=== PATIENT | female | born 2000 | race Caucasian/White ===

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

== ENCOUNTER 2020-03-04 06:42 | Observation (INO) | payer SELFPAY ==
[2020-03-04] VITALS (13 sets, daily range): BP systolic 108–132; BP diastolic 67–95; PULSE 55–106; RESP 15–16; TEMP 35.9–36.8; O2SAT 96–100; BMI 17.9
--- NOTE | 2020-03-04 07:14 | CT_ITS ---
STUDY: CT ABDOMEN AND PELVIS WITH CONTRAST REASON FOR EXAM: Female, 19 years old. PT STATED RLQ PAIN X 1.5 DAYS RADIATION DOSAGE (If Supplied By Facility): CTDIvol = ( 7.63 ) mGy, DLP = ( 268.03 ) mGycm TECHNIQUE: Transaxial images were obtained from the dome of the diaphragm to the symphysis pubis without oral contrast. Oral and amp; IV Gastrografin and amp; 75mL Isovue-300 was administered. Sagittal and coronal images were reconstructed. Individualized dose optimization techniques were used for this CT. COMPARISON: None. FINDINGS: The visualized lung bases are unremarkable. The visualized portions of the heart are within normal limits. Normal liver. Partially contracted gallbladder with pericholecystic fluid. No significant dilatation of the extrahepatic biliary system. Normal spleen. Normal pancreas. Normal bilateral adrenal glands. Normal right kidney. Normal left kidney. Normal visualized stomach. Normal small intestine. Diffuse fecal retention in the colon. The appendix is fluid distended and borderline in size. Normal abdominal aorta. Normal inferior vena cava. Normal retroperitoneum. Normal urinary bladder. Mild pelvic free fluid. Normal abdominal wall. Mild vertebral scoliosis. CT/Abdomen/Pelvis WITH Contrast IMPRESSION: No pericholecystic fluid. Borderline size appendix. Mild pelvic free fluid. Diffuse colonic fecal retention. Electronically Signed: Miguel Monte DO at 9:10 EDT Tel [phone], Service support ,
[2020-03-04] MEDS: Morphine 4 MG/ML Syringe IV (07:37)
[2020-03-04] MEDS: 0.9% Normal Saline 1,000 ML 1000 ML IV (07:38)
[2020-03-04] MEDS: Ondansetron 4 MG/2 ML Vial IV (07:38)
[2020-03-04] MEDS: 0.9% Normal Saline 1,000 ML 60 ML IV (07:41)
--- NOTE | 2020-03-04 07:46 | ED.VISSUMM ---
- ER Visit Summary Date of Service: 03/04/20 Chief Complaint: Abdominal pain History of Present Illness: The patient is a 19 F with no primary care physician. She reports that she has abdominal pain that began yesterday and is gradually gotten worse. The pain began in the periumbilical region is now in the right lower quadrant. Scribes it is an aching pain is 10 of 10 at worst and 710 currently. Is worsened by movement or standing upright. Is relieved by nothing. She is been nausea and vomited once. No blood in her emesis. Her last bowel was 2 days ago. Typically she goes every other day. She denies any melena medic easy. She does complain of dysuria and frequency that began yesterday. Patient reports that she has irregular periods and her last menses was approximately 2 months ago. She denies any chance of being . She denies any vaginal bleeding or discharge. Physical Examination: Vitals: Stable. Afebrile. General: Well-nourished and well-developed. Head: Normocephalic atraumatic. Neck: Supple, no lymphadenopathy. No JVD. Nontender. Cardiovascular: Regular rate and rhythm. No murmurs. Respiratory: No respiratory distress. Clear to auscultation bilaterally. Abdominal: Soft, moderate tenderness palpation in the right lower quadrant, nondistended, normal bowel sounds. No guarding, rebound, or peritoneal signs. Back: Nontender. Extremities: Nontender, no edema. Skin: Normal color, no rash. Neurologic: Alert and oriented ?3. Cranial nerves II through XII are intact. Normal strength and sensation. Psych: Normal affect. Test Results: CBC shows 7 neutrophils 81 monocytes of 11. Chem-7 is normal. UA shows 5-10 white blood cells with no bacteria. test is negative. Clinical Impression(s) from Imaging Studies Abdomen/Pelvis CT 03/04/20 07:14 IMPRESSION: No pericholecystic fluid. Borderline size appendix. Mild pelvic free fluid. Diffuse colonic fecal retention. Electronically Signed: Miguel Monte DO at 9:10 EDT Tel [phone], Service support , Emergency Department Course and Treatment: Patient had an IV placed. She is given a liter of normal saline. She was given morphine and Zofran IV. She is resting more comfortably. Treatment Plan: Patient was seen in the emergency department by Dr. West. He is going to take her to the operating room. She was given a dose of Zosyn. Disposition: Admitted in stable condition. Impression: 1. Appendicitis. This note was generated with [employer] dictation software. It may contain incorrect words, spelling, and punctuation that were not noted in review of the chart prior to signing ED Disposition - Plan for ED Patient: Referrals: Care Physician,No Primary [Primary Care Provider] -
[2020-03-04 08:04] LABS: Bacteria 0 SEEN /hpf (None Seen); Mucous, Urine 0 SEEN /hpf (<or=2+); Red Blood Cells-Urine 0 SEEN /hpf (0-5)
[2020-03-04 08:05] LABS: Color, Urine Yellow (Yellow); Glucose, Dipstick Normal (Normal); Ketone-Dipstick 5 mg/dl (Negative); Leukocyte Esterase-Dipstick 25 /ul (Negative); Nitrite-Dipstick Negative (Negative); Occult Blood-Urine Negative /ul (Negative); Protein-Dipstick Negative (Negative); Specific Gravity, Urine 1.015 (1.002-1.030); Urine Bilirubin Dipstick Negative (Negative); Urine Clarity Cloudy (Clear); Urine Urobilinogen Normal (Normal)
[2020-03-04 08:14] LABS: Absolute Lymphocyte Count 1.21 X10^3/uL (0.83-4.51); Absolute Neutrophil Count 8.7 X10^3/uL (2.0-7.7); Basophil# 0.02 X10^3/uL; Basophil% 0.2 % (0-1); Eosinophil# 0.04 X10^3/uL; Eosinophils% 0.4 % (0-5); Hematocrit 38.5 % (37-47); Hemoglobin 12.7 g/dL (12.0-15.0); Lymphocyte # 1.21 X10^3/ul (4.0); Lymphocyte % 11.3 % (19-41); Mean Corpuscular Hgb 30.2 pg (27.0-32.0); Mean Corpuscular Volume 91.4 fL (81-99); Mean Platelet Vol. 10.1 fl (6.2-12.0); Monocyte% 6.6 % (0-10); NRBC Flagged by Analyzer 0 % (0-5); Neutrophil # 8.66 X10^3/uL (2.7-7.7); Neutrophil % 81.1 % (47-70); Platelet Count 235 K/mm3 (150-450); RBC Distribution Width CV 11.6 % (11.6-14.6); Red Blood Count 4.21 M/mm3 (4.2-5.4); White Blood Count 10.7 K/mm3 (4.4-11.0)
[2020-03-04 08:19] LABS: Anion Gap 6 (5-15); BUN 9 mg/dL (7-18); Calcium,Total 9.4 mg/dL (8.5-10.1); Chloride 105 mmol/L (98-107); Creatinine, Serum 0.56 mg/dL (0.55-1.02); EST Glomerular Filtration Rate 147 mL/min (>60); Est Glom Filt Rate - Afr Amer 178 mL/min (>60); Estimated Creatinine Clearance 116.83 ml/min; Glucose 94 mg/dL (74-106); Potassium 3.8 mmol/L (3.5-5.1); Sodium Level 140 mmol/L (136-145)
[2020-03-04 08:25] LABS: Internal QC Validated? YES +Cl - CLEAR BKGD; Pregnancy, Serum, hCG Quali. NEGATIVE Negative
[2020-03-04 08:40] LABS: Amorphous Sediment 3+; Squamous Epithelial Cells - UA 0-5 SEEN /hpf (5-10); White Blood Cells 5-10 SEEN /hpf (0-5)
--- NOTE | 2020-03-04 11:05 | PCM.HP.STD ---
Problem List (1) Acute appendicitis Status: Acute Qualifiers: Acute appendicitis type: unspecified acute appendicitis type Qualified Code(s): K35.80 - Unspecified acute appendicitis History of Present Illness Date of Admission: 03/04/20 The patient is a 19 year old F who presents with abdominal pain of 1 day duration. She reports yesterday she woke up with pain that started in the periumbilical region and migrated to the right lower quadrant. She says standing causes severe pain in that area and she feels like something is pulling. She is having nausea and vomiting. No fevers or chills. 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 - *Family History Maternal History Items: No pertinent history Review of Systems Constitutional: Denies: Anorexia, Fever HEENT: Denies: Difficulty Swallowing Respiratory: Denies: Cough, Shortness of Breath Gastrointestinal: Reports: Abdominal Pain, Nausea, Vomiting Genitourinary: Denies: Dysuria Musculoskeletal: Denies: Joint Tenderness Skin: Denies: Dryness Hematologic/ Lymphatic: Denies: Anemia VTE Information - Inpt Only VTE Present on Admission: No VTE Mechan Device Prophylaxis: SCD's Patient Problems: Active and Suspected Problems Acute appendicitis (Acute) - Physical Exam Vitals/I&O's: Vital Signs Temp Pulse Resp BP Pulse Ox 98.1 F 79 15 124/78 H 98 03/04/20 11:02 03/04/20 11:02 03/04/20 11:02 03/04/20 11:02 03/04/20 11:02 Oxygen Delivery Method Room Air Weight: 100 lb 15.547 oz Body Mass Index (BMI) 17.9 General: Alert, Oriented x3 Neck: Negative Carotid Bruits Lungs: Normal air movement Cardiovascular: Regular rate, Regular Rhythm, No murmurs Abdomen: Soft, Non-Distended, Tender - Tender right lower quadrant with positive Rovsing sign Musculoskeletal: No Muscle Wasting Neurological: Cranial nerves II-XII grossly intact Psych/Mental Status: Normal Affect Laboratory Results 03/04/20 07:40: Urine Opiates Screen Pending, Urine Methadone Screen Pending, Ur Barbiturates Screen Pending, Ur Phencyclidine Scrn Pending, Ur Amphetamines Screen Pending, U Methamphetamin-MDMA Pending, U Benzodiazepines Scrn Pending, Urine Cocaine Screen Pending, U Cannabinoids Screen Pending, Ur Drug Screen Comment 03/04/20 07:50: WBC 10.7, RBC 4.21, Hgb 12.7, Hct 38.5, MCV 91.4, MCH 30.2, MCHC 33.0, RDW Std Deviation 39.0, RDW Coeff of Mikki 11.6, Plt Count 235, MPV 10.1, Immature Gran % (Auto) 0.400, Neut % (Auto) 81.1 H, Lymph % (Auto) 11.3 L, Cedar % (Auto) 6.6, Eos % (Auto) 0.4, Baso % (Auto) 0.2, Absolute Neuts (auto) 8.7 H, Absolute Lymphs (auto) 1.21, Nucleated RBC % 0 03/04/20 07:50: Sodium 140, Potassium 3.8, Chloride 105, Carbon Dioxide 29.0, Anion Gap 6, BUN 9, Creatinine 0.56, Estim Creat Clear Calc 116.83, Est GFR (MDRD) Af Amer 178, Est GFR (MDRD) Non-Af 147, BUN/Creatinine Ratio 16.0, Glucose 94, Calcium 9.4 03/04/20 07:50: Serum , Qual NEGATIVE 03/04/20 07:50: Urine Color Yellow, Urine Clarity Cloudy, Urine pH 8.0, Ur Specific [place] 1.015, Urine Protein Negative, Urine Glucose (UA) Normal, Urine Ketones 5 H, Urine Occult Blood Negative, Urine Nitrite Negative, Urine Bilirubin Negative, Urine Urobilinogen Normal, Ur Leukocyte Esterase 25 H, Urine RBC 0 SEEN, Urine WBC 5-10 SEEN, Ur Squamous Epith Cells 0-5 SEEN, Amorphous Sediment 3+, Urine Bacteria 0 SEEN, Urine Mucus 0 SEEN 03/04/20 09:40: COVID-19 (YG) Pending Clinical Impression(s) from Imaging Studies Abdomen/Pelvis CT 03/04/20 07:14 IMPRESSION: No pericholecystic fluid. Borderline size appendix. Mild pelvic free fluid. Diffuse colonic fecal retention. Electronically Signed: Miguel Monte DO at 9:10 EDT Tel [phone], Service support , Current Medications Piperacillin Sod/Tazobactam (Sod 3.375 gm/ Sodium Chloride) 50 mls @ 100 mls/hr IV X1 ONE Stop: 03/04/20 11:10 Assessment/Plan All Active Problems Acute appendicitis (Acute) 19-year-old female with acute appendicitis 1. The patient likely has acute appendicitis. She had migration of pain as well as nausea and vomiting. Her white count is the very highest point of normal and she does have a left shift. CT scan shows a fluid-filled appendix but she is very skinny as there is no periappendiceal stranding. She is also very constipated. Given the patient's nausea and vomiting and migration of pain I do not believe the pain is being caused by her constipation. I recommended exploration with laparoscopic appendectomy. I discussed laparoscopic appendectomy with the patient in detail. I discussed the risks including but not limited to bleeding, infection, injury to other organs, injury to ureter or bladder. The patient understands the risks and she is willing to proceed. Jm West MD Pager: [facility] [address] [place] [address], [address] [place] [address] Office:
--- NOTE | 2020-03-04 11:10 | APP_PTH ---
PATIENT: ANA SHAH LOC: MS3 U#:[id number] AGE/SX: 19/F ROOM: MS311 RE03/04/[address]: Dr. Jm West MD : 2000 BED: 1 DIS: 03/04/2020 SPEC #: [id number] RECD: 03/06/20 07:44 STATUS: YG KRISTA #: [id number] SEVEN: 03/04/20 11:[address]: Jm West DEPT: SURGICAL PATHOLOGY RECD BY: Mona Richards ENTERED: 03/06/20 09:09 SP TYPE: APPENDIX OT DR: No Primary Care Phys Tissues: Appendix, NOS Procedures: Surgery Specimen Level III HEADER OPERATION: Laparoscopic appendectomy PRE-OP DIAGNOSIS: Acute appendicitis TISSUE SUBMITTED: Appendix MICROSCOPIC DIAGNOSIS Appendix, appendectomy: Acute appendicitis and periappendicitis. MARGO:eugene 03/07/20 MICROSCOPIC DESCRIPTION Slides are reviewed. GROSS DESCRIPTION Received in fixative is one container labeled with the patient's name and designated appendix. The specimen consists of an appendix measuring 4.5 cm in length and up to 1 cm in diameter. No gross perforations are evident. Sections reveal a patent lumen with fecal material. No mass lesion is identified. Satellite Installation Technician sections are submitted in one cassette. / AM:eugene 03/06/20 TC:2 [facility]: [id number]
[2020-03-04 11:24] LABS: Amphetamine Urine VISTA POSITIVE (<1000 ng/mL); Barbiturate Urine VISTA NEGATIVE (< 200 ng/mL); Benzodiazepine Urine VISTA NEGATIVE (< 200 ng/mL); Cocaine Urine VISTA NEGATIVE (< 300 ng/mL); Ecstacy Urine VISTA NEGATIVE (< 500 ng/mL); Methadone Urine VISTA NEGATIVE (< 300 ng/mL); PCP Urine VISTA NEGATIVE (< 25 ng/mL); THC Urine VISTA POSITIVE (< 50 ng/mL); Vista UDS pH Range 7
[2020-03-04] MEDS: Bupiv/Epi 0.25% 30 ML Vial (11:53)
--- NOTE | 2020-03-04 12:21 | PCM.OPRPT ---
Problem List (1) Acute appendicitis Status: Acute Qualifiers: Acute appendicitis type: unspecified acute appendicitis type Qualified Code(s): K35.80 - Unspecified acute appendicitis Report of Operation Date of Procedure: 03/04/20 Pre-Operative Diagnosis: Acute appendicitis Post-Operative Diagnosis: Same Surgery/Procedure Performed:: Laparoscopic appendectomy Specimen's removed: Appendix Description of Procedure: The patient was brought into the operating room and general anesthesia was induced. The left arm was tucked and the abdomen was prepped and draped in usual sterile fashion. A small midline incision was made superior to the umbilicus and deepened to the level of the fascia. The fascia was elevated and incised. The peritoneum was also elevated and incised. A finger sweep was performed and a balloon trocar was placed into the abdomen and inflated. The abdomen was insufflated to 15 mmHg and the camera was inserted and the abdomen was inspected for any injuries upon entering the abdomen. There were none. The patient was placed in Trendelenburg position and a 5 mm ports placed in the left lower quadrant and suprapubic areas under direct visualization. Next using atraumatic bowel graspers the appendix was identified. The appendix was grasped and elevated and Enseal was used to take down the mesoappendix. The appendix was inflamed. A stapler was used to come across the base of the appendix. The appendix was then placed in Endo Catch bag and removed through the umbilical incision. The staple line was inspected and found to be hemostatic and intact. The 2 5 mm ports are removed under direct visualization. The balloon trocar was deflated and removed and all the air was removed from the abdomen. The umbilical incision fascia was closed with an 0 Vicryl [id number] suture. The incisions were then irrigated with saline and dried. Local anesthetic was injected into the incision sites. The skin incisions were then closed with interrupted 4-0 Monocryl suture and Steri-Strips. Bandages were applied and the patient was awoken and taken to PACU in stable condition. Patient tolerated the procedure well. - Admit VTE Documentation VTE Mechan Device Prophylaxis: SCD's
--- NOTE | 2020-03-04 12:22 | DCINST_ITS ---
Discharge Diet: Light diet - advance as tolerated Discharge Activity: May Not Drive - for 3-5 days or while taking narcotic pain meds. May shower in (days): 1 Lifting Restrictions: 20 lbs for 2 weeks Call your doctor if your incision/area has: Continuous Slow Oozing, Sudden Increased Bleeding, Increased Pain/ Swelling, Increased Redness, Foul Smelling Discharge Call your doctor if you observe: Fever of 101 or Higher Suture Line Care: Avoid Pulling/Pushing, Avoid Pinching/Bending Additional Dressing/Incision Instructions:: Keep dressing clean and dry. Change or remove dressing in 2 days. Leave steri strips for 1 week. May protect with a gauze bandaid. Medications to take at Discharge NK 03/04/20 Allergies/Adverse Reactions: Allergies No Known Allergies Allergy (Verified 03/04/20 06:45) Test Results: Test results from this visit will be discussed in further detail at your follow- up appointment, if applicable. Please Follow Up With: Jm West MD When: Please call to schedule 2 week follow up appointment. [phone]
[2020-03-04 12:38] LABS: Probe Check PASS; Specimen Processing Control PASS
[2020-03-04] MEDS: Acetaminophen 325 MG Tablet 650 MG PO ×2 (15:40→21:35)
[2020-03-04] MEDS: Docusate Sodium 100 MG Capsule PO ×2 (15:41→20:16)
[2020-03-04] MEDS: oxyCODONE 5 MG Tablet PO (15:41)
[2020-03-04] MEDS: Magnesium Citrate 300 ML PO (15:55)
--- NOTE | 2020-03-04 20:04 | NURSING ---
Called and left message with boyfriend Dawit to let him know that patient would be ready to be discharged and if he could call us back so that we knew when he was going to be coming to pick her up.
[2020-03-04] MEDS: 0.9% Saline Lock 10 ML Syringe IV (21:23)
== END 2020-03-04 21:45 | disposition home or self-care (01) ==
LOC: ED 07:41 → SDC 11:00 → MS3 13:35
PROVIDERS: Anesthesiology; Admitting Provider Surgery; Emergency Provider Emergency Medicine; Visit Provider Surgery
PROC: 0DTJ4ZZ Resection of Appendix, Percutaneous Endoscopic Approach (ICD-10-PCS; CPT 44970; principal; 2020-03-04 11:10)
DX: K35.80 Unspecified acute appendicitis (principal); Z87.891 Personal history of nicotine dependence; J45.909 Unspecified asthma, uncomplicated
CPT/HCPCS: 00840; 44970; 74177; 80048; 80307; 81001; 84703; 85025; 87635; 88304; 96361; 96374; 96375; 99284; 99406; G2023; J7030; Q9967; A4216; C1760; J2405; U0003

== ENCOUNTER 2022-12-27 03:00 | Emergency (ER) | payer OTHER, SELFPAY ==
[2022-12-27 03:02] VITALS: BP 126/82; PULSE 70; RESP 16; TEMP 37.1; O2SAT 98; BMI 19.2
[2022-12-27] MEDS: Ketorolac 30 MG/ML Syringe IM (03:24)
--- NOTE | 2022-12-27 03:53 | EX.ED.DYSGE1 ---
HPI History of Present Illness Chief Complaint: Burn Narrative Narrative: Patient is a 22-year-old female with no significant past medical history. She was at work this evening finishing up her shift when she was splashed by 350 degree hot grease. She states that the grease struck her in the right and left forearm/hand and along the anterior portion of her neck. She states that the injury occurred roughly 10 minutes prior to arrival. She denies any other trauma but with concern that she would need treated secondary to the thermal burn she presents for evaluation [facility] Medical History no medical history Home Medications hydrocodone-acetaminophen 5-325mg 5mg-325mg 1 tab PO Q6H PRN PRN Pain 3 days #12 TABLETS 12/27/22 [Rx Last Taken Unknown] lidocaine-aloe vera 0.5 % topical gel 1 applic topical TID PRN Pain/burn #227 grams 12/27/22 [Rx Last Taken Unknown] silver sulfadiazine 1 % topical cream (Silvadene) 1 applic topical DAILY 7 days #50 grams 12/27/22 [Rx Last Taken Unknown] Allergy/AdvReac Type Severity Reaction Status Date / Time No Known Allergies Allergy Verified 12/27/22 03:01 Surgical History (Updated 12/27/22 @ 03:02 by Florentino Crespo) History of appendectomy Social History Smoking Status: Current some day smoker tobacco type: cigarettes ROS ROS ED Constitutional Constitutional ED: Denies chills or fever(s) Eyes Eyes: Denies change in vision ENT ENT ED: Denies sore throat Cardiovascular Cardiovascular: Denies chest pain Respiratory/Chest Respiratory/Chest: Denies cough or dyspnea Gastrointestinal Gastrointestinal: Denies abdominal pain, diarrhea, nausea or vomiting Genitourinary Genitourinary ED: Denies dysuria Musculoskeletal Musculoskeletal: Reports other Details: Positive bilateral arm pain Integumentary Reports other Details: Positive burn Neurologic Neurologic: Denies headache(s) or paresthesias Hematologic/Lymphatic Hematologic/Lymphatic: Denies easy bleeding or easy bruising EXAM Physical Exam Const Vital Signs: 12/27/22 03:02 12/27/22 03:09 Temperature 98.7 F Temperature Source Temporal Pulse Rate 70 Respiratory Rate 16 Respiratory Effort Normal Respiratory Depth Normal Respiratory Pattern Normal Blood Pressure 126/82 H Blood Pressure Mean 96 Pulse Ox 98 Oxygen Delivery Method Room Air Positive well nourished and well developed General Appearance ED: well developed Eyes PERRL and EOMs intact bilaterally Neck supple Neck Narrative: Patient has 4 areas of erythema along the anterior aspect of the neck below the chin that are roughly 1 cm in diameter each without blister formation indicating first-degree thermal burn. Resp normal respiratory effort and clear to auscultation bilaterally Cardio regular rate and regular rhythm Extremity Extremity Narrative: Bilateral upper extremities are neurovascular intact. Patient has a combination of first and second-degree thermal burn along the ulnar aspect of the distal and middle third of the forearm. Patient also has a combination of first and second-degree burn along the ulnar aspect of the left hand near the hyperthenar eminence extending into the distal third of the forearm. There is no active drainage from the wound sites no secondary changes to suggest infection. The total amount of surface area burned between the first and second-degree solis is 5% Neuro oriented x3, CN's II-XII intact bilaterally and no sensory deficits noted Sensorium / Orientation: alert Psych mental status grossly normal Skin Skin Narrative: Combination of first and secondary solis to the bilateral arms and neck as documented above without secondary changes to suggest infection MDM MDM MDM Narrative Medical decision making narrative: Patient presented to the ER with stable vitals and a history and exam consistent with thermal burn. At this time she does not have secondary changes to suggest infection the solis are not circumferential which could lead to strictures and contractions and she is neurovascularly intact. Also the total percentage of burn area does not necessitate transfer to a burn center. Therefore patient was instructed on symptomatic care and is otherwise safe for discharge. History & Record Review Discussion w/independent historian: Patient Discharge Plan Triage Chief Complaint: Burn ED Provider: Jaylan Bernabe Dx/Rx/DC Orders Clinical Impression: Second degree burn, First degree burn Instructions: ED First- and Second-Degree Solis ..., ED BURN Wound Check [No Infection], ED Burn, Second-Degree Prescriptions: New silver sulfadiazine [Silvadene] 1 % cream 1 applic topical DAILY 7 Days Qty: 50 0RF Rx Instructions: apply a 1.5 mm thickness lidocaine-aloe vera 0.5 % gel 1 applic topical TID PRN (Reason: Pain/burn) Qty: 227 0RF hydrocodone-acetaminophen 5-325 mg tablet 1 tab PO Q6H PRN PRN (Reason: Pain) 3 Days Qty: 12 0RF Primary Care Provider: Ge Romo Referrals: Ge Romo MD [Primary Care Provider] - Activity Restrictions/Additional Instructions: Use the Silvadene cream to prevent infection and then cover the. area also with the lidocaine and aloe vera to help reduce pain if there is persistent pain take the [place]. Follow-up with Workmen's Comp. for repeat evaluation and return to ER should you have any further concerns Disposition Disposition: Home, Self Care Discharge Date/Time: 12/27/22 04:11
== END 2022-12-27 04:11 | disposition home or self-care (01) ==
PROVIDERS: Emergency Provider Emergency Medicine; PCP Pediatrics; Visit Provider Emergency Medicine
DX: T22.212A Burn of second degree of left forearm, initial encounter (principal); T20.17XA Burn of first degree of neck, initial encounter; T31.0 Burns involving less than 10% of body surface; X10.2XXA Contact with fats and cooking oils, initial encounter; Y99.0 Civilian activity done for income or pay; F17.210 Nicotine dependence, cigarettes, uncomplicated
CPT/HCPCS: 96372; 99282

== ENCOUNTER 2024-01-09 13:16 | Emergency (ER) | payer SELFPAY ==
[2024-01-09 13:17] VITALS: BP 124/81; PULSE 62; RESP 16; TEMP 36.6; O2SAT 100; BMI 18.3
[2024-01-09 13:19] VITALS: BP 111/64; PULSE 60; RESP 16; TEMP 36.6
--- NOTE | 2024-01-09 14:15 | EX.ED.DYSGE1 ---
HPI <ISRAEL Rodríguez - Last Filed: 01/09/24 14:22> History of Present Illness Chief Complaint: Ear Problem Narrative Narrative: Patient is a 23-year-old female with no significant medical history presents to the emergency department for concern of infection to the right earlobe. Patient states at the end of November, she had both of her ears pierced. Patient does have 2 piercings to the right lower lobe. Patient noticed some redness over the last 3 to 4 days, is getting more painful and swollen she is here for evaluation. She denies any drainage, nausea or vomiting. PFSH <ISRAEL Rodrígeuz - Last Filed: 01/09/24 14:22> [facility] Medications ?Medication ?Instructions ?Recorded ?Last Taken ?Type hydrocodone-acetaminophen 5-325mg 1 tab PO Q6H PRN PRN Pain 3 days 12/27/22 Unknown Rx 5mg-325mg #12 TABLETS lidocaine-aloe vera 0.5 % topical 1 applic topical TID PRN Pain/burn 12/27/22 Unknown Rx gel #227 grams silver sulfadiazine 1 % topical 1 applic topical DAILY 7 days #50 12/27/22 Unknown Rx cream (Silvadene) grams cephalexin 500 mg capsule 500 mg PO Q6 7 days #28 CAPSULES 01/09/24 Unknown Rx Allergy/AdvReac Type Severity Reaction Status Date / Time No Known Allergies Allergy Verified 01/09/24 13:17 Surgical History (Updated 12/27/22 @ 03:02 by Florentino Crespo) History of appendectomy Social History Smoking Status: Current some day smoker tobacco type: cigarettes ROS <ISRAEL Rodríguez - Last Filed: 01/09/24 14:22> ROS ED ROS Narrative Constitutional: Negative for fever, chills, weight loss, weakness Eyes: Negative for vision loss, vision change, double vision ENT: Negative for any sore throat, congestion. Positive for right ear pain, right ear redness Cardiovascular: Negative for any chest pain, tightness, palpitations Respiratory: Negative for any cough, sputum production, hemoptysis, dyspnea, dyspnea on exertion, orthopnea Gastrointestinal: Negative for any abdominal pain, nausea, vomiting, diarrhea, constipation, blood in stool, blood in vomit : Negative for any urinary frequency, dysuria, retention, blood in urine Muscle skeletal: Negative for any neck pain, back pain Neurological: Negative for any headache, syncope, dizziness Skin: Negative for any rashes, itching, abrasions, lacerations Psychiatric: Negative for any depression, anxiety, stress, suicidal ideation, homicidal ideation Hematologic: Negative for any excessive bruising, easy bleeding EXAM <ISRAEL Rodríguez - Last Filed: 01/09/24 14:22> Physical Exam Narrative Exam Narrative: Vital signs reviewed. HEET: Head normocephalic atraumatic, TMs clear bilaterally. Posterior pharynx is clear, moist mucous membranes. Nares clear bilaterally. Patient's right lower earlobe does show some erythema, edema. I did have the patient take out both of her earrings in that ear, there was some serosanguineous drainage from one of the holes. There is no abscess formation. Patient does have some discomfort on palpation. Neck: Supple with no lymphadenopathy or tenderness. No signs of meningismus. Cardiac: Regular rate and rhythm no murmurs gallops or rubs, equal peripheral pulses bilaterally. Respiratory: Lungs clear to auscultation bilaterally. No chest tenderness. Abdomen: Soft, nontender, nondistended. No abdominal bruit or pulsatile masses. No hepatosplenomegaly Extremities: No peripheral edema, no signs of gross trauma or deformity. Active full range of motion of all extremities. Neuro: Cranial nerves II through XII intact, no focal neurological deficits. Skin: Clean dry and intact with no rash, purpura, petechiae, vesicles or pustules. Backs/flank: No CVA tenderness, no midline spinal tenderness, no deformity. Psych: Normal mood and affect. No SI, HI or acute psychosis. Const Vital Signs: 01/09/24 13:17 01/09/24 13:17 01/09/24 13:19 Temperature 97.9 F 97.9 F 97.9 F Temperature Source Temporal Temporal Temporal Pulse Rate 62 62 60 Respiratory Rate 16 16 16 Blood Pressure 124/81 H 124/81 H 111/64 Blood Pressure Mean 95 95 79 Pulse Ox 100 100 Oxygen Delivery Method Room Air Room Air Room Air <Dr. Pavel Marte, DO - Last Filed: 01/09/24 14:33> Physical Exam Const Vital Signs: 01/09/24 13:17 01/09/24 13:17 01/09/24 13:19 Temperature 97.9 F 97.9 F 97.9 F Temperature Source Temporal Temporal Temporal Pulse Rate 62 62 60 Respiratory Rate 16 16 16 Blood Pressure 124/81 H 124/81 H 111/64 Blood Pressure Mean 95 95 79 Pulse Ox 100 100 Oxygen Delivery Method Room Air Room Air Room Air MDM <ISRAEL Rodríguez - Last Filed: 01/09/24 14:22> MDM Treatment and Re-Evaluation :: Differential diagnosis includes however is not limited to: Fungal disease, foreign body, cellulitis, abscess formation Patient appears generally well, patient appears nontoxic, vital signs are stable. Patient presents to the emergency department with complaints of right earlobe redness, swelling. Physical examination consistent with cellulitis to the right earlobe secondary to ear piercing. She was able to get both of these piercings out of her right ear. She will keep these out until fully healed. Patient placed on Keflex 4 times a day for 7 days. She instructed use warm compresses. Ibuprofen Tylenol for pain or fever. She is happy with the plan of care, given strict return precaution. Stable for discharge. <Dr. Pavel Marte DO - Last Filed: 01/09/24 14:33> MDM Treatment and Re-Evaluation :: Differential diagnosis includes however is not limited to: Fungal disease, foreign body, cellulitis, abscess formation Patient appears generally well, patient appears nontoxic, vital signs are stable. Patient presents to the emergency department with complaints of right earlobe redness, swelling. Physical examination consistent with cellulitis to the right earlobe secondary to ear piercing. She was able to get both of these piercings out of her right ear. She will keep these out until fully healed. Patient placed on Keflex 4 times a day for 7 days. She instructed use warm compresses. Ibuprofen Tylenol for pain or fever. She is happy with the plan of care, given strict return precaution. Stable for discharge. I have personally performed a face to face assessment of the patient and have reviewed the KATE Note. I performed a substantive portion of the visit including all aspects of the following. My hewitt findings include: History is 23-year-old female presenting with an infected ear piercing. She has never had her ears pierced before. Left ear is fine. She has some tenderness and redness of the left earlobe. Exam is nontoxic well-appearing female sitting comfortably in the bed. The earring has been removed. There is no purulence or crusting of the ear. The earlobe itself is mildly erythematous and tender. Medical Decison Making patient will be started on Keflex. She is to follow-up with primary care as needed return if worsening or concerns. Home care was discussed with patient including washing and cleaning of the area Discharge Plan Triage Chief Complaint: Ear Problem Other Complaint: Fever ED Midlevel Provider: Singh Bonner ED Provider: Pavel Marte Dx/Rx/DC Orders Clinical Impression: Cellulitis of ear Instructions: Cellulitis Dc, ED Cellulitis Prescriptions: New cephalexin 500 mg capsule 500 mg PO Q6 7 Days Qty: 28 0RF No Action silver sulfadiazine [Silvadene] 1 % cream 1 applic topical DAILY 7 Days Qty: 50 0RF Rx Instructions: apply a 1.5 mm thickness lidocaine-aloe vera 0.5 % gel 1 applic topical TID PRN (Reason: Pain/burn) Qty: 227 0RF hydrocodone-acetaminophen 5-325 mg tablet 1 tab PO Q6H PRN PRN (Reason: Pain) 3 Days Qty: 12 0RF Primary Care Provider: Ge Romo Referrals: Ge Romo MD [Primary Care Provider] - Activity Restrictions/Additional Instructions: Take the antibiotics until finished. Use warm compresses. Print Language: Armenian Disposition Disposition: Home, Self Care
[2024-01-09 14:19] VITALS: BP 114/50; PULSE 60; RESP 18; TEMP 530.9; TEMP 987.7
[2024-01-09] MEDS: Cephalexin 250 MG Capsule 500 MG PO (14:39)
[2024-01-09 14:41] VITALS: BP 114/50; PULSE 60; RESP 18; TEMP 36.5; O2SAT 99
== END 2024-01-09 14:42 | disposition home or self-care (01) ==
PROVIDERS: Emergency Provider Emergency Medicine; PCP Pediatrics; Visit Provider Emergency Medicine
DX: H60.11 Cellulitis of right external ear (principal); F17.210 Nicotine dependence, cigarettes, uncomplicated
CPT/HCPCS: 99283

== ENCOUNTER 2024-03-31 12:06 | Inpatient (IN) | payer SELFPAY ==
[2024-03-31 12:06] VITALS: BP 124/78; PULSE 68; RESP 19; TEMP 35.8; O2SAT 100; BMI 16.5
--- NOTE | 2024-03-31 13:14 | EDS_ITS ---
HPI History of Present Illness Chief Complaint: Substance Abuse Informant: patient Onset/Context/Timing Onset: Month(s) Context: Gradual Onset Timing: Continuous Current Severity: Mild Maximum Severity: Mild Narrative Narrative: 23-year-old female states she is requesting detox for fentanyl abuse. States she snorts it. Denies any IV drug use. Denies any recent illness. States she is never gone through detox before. Last use was about 5 to 6 hours ago. Prior similar symptoms: Yes Recent Illness/Hospitalization: No PFSH PFSH Allergy/AdvReac Type Severity Reaction Status Date / Time No Known Allergies Allergy Verified 01/09/24 13:17 Surgical History History of appendectomy Social History Smoking Status: Former smoker ROS ROS ED ROS Narrative Denies recent illness. Constitutional Constitutional ED: Denies fever(s) Eyes Eyes: Denies blurry vision ENT ENT ED: Denies ear pain Cardiovascular Cardiovascular: Denies chest pain Respiratory/Chest Respiratory/Chest: Denies cough or dyspnea Gastrointestinal Gastrointestinal: Denies abdominal pain Genitourinary Genitourinary ED: Denies dysuria Musculoskeletal Musculoskeletal: Denies arthralgias Integumentary Denies abscess Neurologic Neurologic: Denies headache(s) Psychiatric Psychiatric: Denies anxiety or depression Endocrine Endocrinology: Denies cold intolerance Hematologic/Lymphatic Hematologic/Lymphatic: Denies easy bleeding Allergic/Immunologic Allergic/Immunologic ED: Denies mouth swelling EXAM Physical Exam Narrative Exam Narrative: There are few in no acute distress signs stable afebrile. H EENT exam unremarkable. Mytrex murmurs. Neck nontender. She does have anterior posterior cervical lymphadenopathy. States recently was diagnosed with mono several weeks ago. Lungs clear to auscultation bilaterally. Heart regular rhythm no murmur. Abdomen soft, nontender, nondistended normal bowel sounds no peritoneal signs. Moving all 4 extremities. Nontender no edema. Neurologically she is awake alert no focal motor deficits. Const Vital Signs: 03/31/24 12:06 Temperature 96.5 F L Temperature Source Temporal Pulse Rate 68 Respiratory Rate 19 H Blood Pressure 124/78 H Blood Pressure Mean 93 Pulse Ox 100 Oxygen Delivery Method Room Air Positive well nourished and well developed; Negative for obese, cachectic, contractures or unkempt General Appearance ED: well developed and NAD; Negative for unkempt, cachectic, contractures or pallor Nutritional Appearance: Negative for cachectic or obese HEENT Reports moist mucous membranes atraumatic; Negative for trauma or tenderness Eyes PERRL and EOMs intact bilaterally Neck No no lymphadenopathy, supple and no JVD Neck Narrative: Anterior and posterior cervical lymphadenopathy. Recent history of mono. Lymph Lymphatic: lymphadenopathy; Negative for no lymphadenopathy noted Chest Wall inspection of chest normal and palpation of chest normal Resp normal respiratory effort and clear to auscultation bilaterally Auscultation: Negative for rales, rhonchi or wheezes Cardio regular rate, regular rhythm, S1 normal heart sound, S2 normal heart sound and no murmurs Rate: Negative for bradycardia or tachycardic Rhythm: Negative for abnormal rhythm Bruits: Negative for other GI soft to palpation, non-tender, non-distended and no masses Inspection: Negative for abdominal distention Palpation: Negative for tender, guarding or mass Back/Spine no CVA tenderness Extremity General Extremety ED: Negative for edema or tenderness General Extremity: Negative for edema Neuro oriented x3 and CN's II-XII intact bilaterally Sensorium / Orientation: alert, oriented to person, oriented to place and oriented to time; Negative for confused, lethargic or stuporous Speech: speech normal Motor Exam: strength 5/5 throughout Psych mental status grossly normal and thought process normal Appearance: Negative for unkempt Attitude: No belligerent, No agitated, No aggressive and No hostile Mood & Affect: Negative for depressed, anxious or tearful Skin General Skin Exam: Negative for jaundice or pallor Lesions: no lesions Rashes: no rashes MDM MDM MDM Narrative Medical decision making narrative: 23-year-old female requesting detox for fentanyl abuse by snorting it. Screening labs being obtained. Hospitalist on page for admission. Hospitalist in the ER admitting the patient. She will be given a milligram of p.o. Ativan for anxiety. Lab Data Attestation: I reviewed the patient's lab results. Lab results narrative: CBC normal. White count 9. H&H 12 and 38. Platelets 236. Electrolytes sodium 135. Potassium 3.2. Gap 8. Normal BUN 10 creatinine 0.5. Liver enzymes unremarkable. Urine positive for cannabis. Serum alcohol negative. Labs: Laboratory Results - last 24 hr 03/31/24 13:21 WBC 9.4 RBC 4.29 Hgb 12.7 Hct 38.0 MCV 88.6 MCH 29.6 MCHC 33.4 RDW Std Deviation 38.0 RDW Coeff of Mikki 11.9 Plt Count 236 MPV 9.6 Immature Gran % (Auto) 0.300 Neut % (Auto) 46.1 L Lymph % (Auto) 44.6 H [place] % (Auto) 8.4 Eos % (Auto) 0.0 Baso % (Auto) 0.6 Absolute Neuts (auto) 4.3 Absolute Lymphs (auto) 4.19 Nucleated RBC % 0 Sodium 135 L Potassium 3.2 L Chloride 102 Carbon Dioxide 25.0 Anion Gap 8 BUN 10 Creatinine 0.54 L Estim Creat Clear Calc 111.96 Est GFR (MDRD) Af Amer 179 Est GFR (MDRD) Non-Af 148 BUN/Creatinine Ratio 18.6 Glucose 102 Calcium 8.8 Total Bilirubin 0.70 AST 34 ALT 50 Alkaline Phosphatase 186 H Total Protein 7.9 Albumin 3.4 Globulin 4.5 H Albumin/Globulin Ratio 0.8 L Serum , Qual NEGATIVE Urine Opiates Screen NEGATIVE Urine Methadone Screen NEGATIVE Ur Barbiturates Screen NEGATIVE Ur Phencyclidine Scrn NEGATIVE Ur Amphetamines Screen NEGATIVE MDMA (Ecstasy) Screen NEGATIVE U Benzodiazepines Scrn NEGATIVE Urine Cocaine Screen NEGATIVE U Cannabinoids Screen POSITIVE H Ur Drug Screen Comment Ethyl Alcohol < 3.0 Discharge Plan Dx/Rx/DC Orders Clinical Impression: Drug abuse, Mild fentanyl abuse, Desire for detoxification Disposition Disposition: Acute Care Hospital [facility]
--- NOTE | 2024-03-31 13:25 | NURSING ---
MED SURG TERELETSARLIN FENTANYL ABUSE, DETOX
[2024-03-31 13:31] LABS: Absolute Lymphocyte Count 4.19 X10^3/uL (0.83-4.51); Absolute Neutrophil Count 4.3 X10^3/uL (2.0-7.7); Basophil# 0.06 X10^3/uL; Basophil% 0.6 % (0-1); Hemoglobin 12.7 g/dL (12.0-15.0); Lymphocyte # 4.19 X10^3/ul (0.83-4.51); Lymphocyte % 44.6 % (19-41); Mean Corp Hgb Conc 33.4 g/dL (32-36); Mean Corpuscular Hgb 29.6 pg (27.0-32.0); Mean Corpuscular Volume 88.6 fL (81-99); Mean Platelet Vol. 9.6 fl (6.2-12.0); Monocyte# 0.79 X10^3/uL; Monocyte% 8.4 % (0-10); NRBC Flagged by Analyzer 0 % (0-5); Neutrophil # 4.32 X10^3/uL (2.7-7.7); Neutrophil % 46.1 % (47-70); POSITIVE MORPHOLOGY YES; Platelet Count 236 K/mm3 (150-450); RBC Distribution Width CV 11.9 % (11.6-14.6); Red Blood Count 4.29 M/mm3 (4.2-5.4); White Blood Count 9.4 K/mm3 (4.4-11.0)
[2024-03-31 13:34] LABS: Differential Indicated SCAN CRITERIA MET
--- NOTE | 2024-03-31 13:34 | HP.PCM.HOS_ITS ---
HPI - General General Date of Admission: 03/31/24 Date of Service: 03/31/24 Chief Complaint: Requesting services for opioid detox HPI Miguel SHAH, is a 23 F who presents to the emergency room at [facility] with request of services for detox from fentanyl. Patient snorts fentanyl, she has never been through detox program before. Patient does not abuse any other drugs, she has no chronic medical problems. Patient states she last used fentanyl today approximately 5 hours ago, she is having some muscle cramps and nausea at this time and feels nervous. Labs obtained in the ER included CBC which was unremarkable, at the time of this dictation, chemistry profile was pending, toxicology was also pending. Patient will be admitted to [place] [id number], orders were entered using the opiate detox order set, she will be seen by addiction marriage and family social worker. [facility], [facility] Allergy/AdvReac Type Severity Reaction Status Date / Time No Known Allergies Allergy Verified 01/09/24 13:17 Surgical History History of appendectomy Social History Smoking Status: Former smoker ROS Constitutional Constitutional: Denies anorexia, change in weight, chills, fatigue, fever(s), night sweats or weakness Eyes Eyes: Denies blurry vision, change in vision, discharge from eye(s) or eye pain Cardiovascular Cardiovascular: Denies chest pain, claudication, edema or palpitations Respiratory/Chest Respiratory/Chest: Denies cough, hemoptysis, shortness of breath at rest or shortness of breath with exertion Gastrointestinal Gastrointestinal: Denies abdominal pain, constipation, diarrhea, hematemesis, hematochezia, melena, nausea or vomiting Genitourinary Genitourinary: Denies dysuria, hematuria, urinary frequency, urinary hesitancy, urinary incontinence or urinary urgency Musculoskeletal Musculoskeletal: Reports myalgias; Denies back pain, joint pain, joint stiffness, joint swelling or neck pain Neurologic Neurologic: Denies abnormal gait, abnormal speech, confusion, dizziness, focal weakness, headache(s), loss of vision, numbness, other visual disturbances, paresthesias, syncope or tingling Psychiatric Psychiatric: Denies anxiety, cognitive impairment, depression, irritability, mood swings or suicidal ideation Endocrine Endocrinology: Denies change in body appearance, cold intolerance, excessive sweating, heat intolerance, polydipsia or polyuria Hematologic/Lymphatic Hematologic/Lymphatic: Denies none, anemia, easy bleeding, easy bruising or lymphadenopathy Allergic/Immunologic Allergic/Immunologic: Denies rhinitis, urticaria, eczemia or asthma Vital Signs Vital Signs Vital Signs: 03/31/24 12:06 Temperature 96.5 F L Temperature Source Temporal Pulse Rate 68 Respiratory Rate 19 H Blood Pressure 124/78 H Blood Pressure Mean 93 Pulse Ox 100 Oxygen Delivery Method Room Air Weight Weight: 43.772 kg Body Mass Index (BMI) 16.5 Physical Exam Const alert, oriented x3, no apparent distress, average body habitus and healthy appearing General Appearance: cooperative, well kempt and well developed Orientation / Consciousness: awake, oriented to person, oriented to place and oriented to time HEENT normocephalic, head/scalp atraumatic, hearing grossly normal bilaterally and moist oral mucous membranes Eyes PERRL, EOMs intact bilaterally and conjunctivae normal Neck supple, no JVD, thyroid normal and no carotid bruits General: trachea midline Resp normal respiratory effort, no retractions, no use of accessory muscles and clear to auscultation bilaterally Auscultation: Negative for rales, rhonchi or wheezes Cardio regular rate, regular rhythm, S1 normal heart sound, S2 normal heart sound, no murmurs, no rub and no gallops GI normal to inspection, nondistended, normoactive bowel sounds, soft to palpation, non-tender and non-distended Extremity no clubbing, cyanosis or edema Skin no rashes or lesions noted General Skin Exam: no breakdown Neuro oriented x3, CN's II-XII intact bilaterally, moves all extremities, no focal motor deficits and no sensory deficits noted Sensorium / Orientation: awake and alert Speech: speech normal Psych affect normal Results Lab / Micro Data 03/31/24 13:21 03/31/24 13:21 Labs: Laboratory Results - last 24 hr 03/31/24 13:21: WBC 9.4, RBC 4.29, Hgb 12.7, Hct 38.0, MCV 88.6, MCH 29.6, MCHC 33.4, RDW Std Deviation 38.0, RDW Coeff of Mikki 11.9, Plt Count 236, MPV 9.6, Immature Gran % (Auto) 0.300, Neut % (Auto) 46.1 L, Lymph % (Auto) 44.6 H, Jun[place] % (Auto) 8.4, Eos % (Auto) 0.0, Baso % (Auto) 0.6, Absolute Neuts (auto) 4.3, Absolute Lymphs (auto) 4.19, Nucleated RBC % 0, Ur Drug Screen Comment Assessment & Plan Assessment/Plan (1) Desire for detoxification: PLAN: Plan 1. Opiate withdrawal-patient will be admitted to [facility], orders were entered using a detox order set, she will be seen by addiction marriage and family social worker. #2 chronic opiate addiction-patient uses fentanyl, she snorts it, she denies any other drug use. Complicates care, management, recovery, and prognosis Total clinical time spent by myself addressing the patient's medical issues, reviewing all her data, and collaborating with patient's care team: 40 minutes Charges/Coding Visit Charges Inpatient E&M: 81406 Init Hosp L1
[2024-03-31 13:39] LABS: Internal QC Validated? YES +Cl - CLEAR BKGD; Pregnancy, Serum, hCG Quali. NEGATIVE Negative
[2024-03-31 13:44] LABS: Alcohol, Blood (Medical)-Serum < 3.0 mg/dL
[2024-03-31 13:47] LABS: ALB/GLOB Ratio 0.8 RATIO (0.9-2.4); AST(SGOT) 34 U/L (15-37); Alanine Aminotransfer ALT/SGPT 50 U/L (13-56); Albumin, Serum 3.4 g/dL (3.2-5.0); Alkaline Phosphatase 186 U/L (45-117); Anion Gap 8 (5-15); BUN 10 mg/dL (7-18); BUN/Creat Ratio 18.6 RATIO (10-20); Calcium,Total 8.8 mg/dL (8.5-10.1); Chloride 102 mmol/L (98-107); Creatinine, Serum 0.54 mg/dL (0.55-1.02); EST Glomerular Filtration Rate 148 mL/min (>60); Est Glom Filt Rate - Afr Amer 179 mL/min (>60); Estimated Creatinine Clearance 111.96 ml/min; Globulin 4.5 g/dL (2.2-4.2); Glucose 102 mg/dL (74-106); Potassium 3.2 mmol/L (3.5-5.1); Protein, Total 7.9 g/dL (6.4-8.2); Sodium Level 135 mmol/L (136-145)
[2024-03-31 13:57] LABS: Amphetamine Urine VISTA NEGATIVE (<1000 ng/mL); Barbiturate Urine VISTA NEGATIVE (< 200 ng/mL); Benzodiazepine Urine VISTA NEGATIVE (< 200 ng/mL); Cocaine Urine VISTA NEGATIVE (< 300 ng/mL); Ecstacy Urine VISTA NEGATIVE (< 500 ng/mL); Methadone Urine VISTA NEGATIVE (< 300 ng/mL); PCP Urine VISTA NEGATIVE (< 25 ng/mL); THC Urine VISTA POSITIVE (< 50 ng/mL); Vista UDS pH Range 6
[2024-03-31 14:09] LABS: Atypical Lymphocyte 1+ %
[2024-03-31] MEDS: LORazepam 1 MG Tablet PO (14:26)
[2024-03-31 14:27] VITALS: BP 138/81; PULSE 93; RESP 15; TEMP 36.4; O2SAT 97
[2024-03-31 15:08] VITALS: BP 136/75; PULSE 84; RESP 16; TEMP 36.7; O2SAT 97
[2024-03-31 15:23] VITALS: BP 112/63; PULSE 72; RESP 16; TEMP 36.6; O2SAT 99
[2024-03-31 15:24] VITALS: BMI 16.5
[2024-03-31] MEDS: Ondansetron 8 MG Tablet PO (15:39)
[2024-03-31] MEDS: Gabapentin 300 MG Capsule PO (15:39)
[2024-03-31] MEDS: Methocarbamol 750 MG Tablet PO (15:39)
[2024-03-31] MEDS: Ibuprofen 600 MG Tablet PO (15:39)
[2024-03-31] MEDS: Buprenorphine HCl 2 MG TAB.SUBL 4 MG SL (16:23)
[2024-03-31] MEDS: hydrOXYzine PAM 25 MG Capsule 50 MG PO (17:48)
[2024-03-31 20:34] VITALS: BP 113/71; PULSE 89; RESP 16; TEMP 37.1; O2SAT 98
[2024-03-31] MEDS: traZODone 100 MG Tablet PO (21:35)
--- NOTE | 2024-03-31 22:28 | NURSING ---
notified house supervisor pt is leaving [facility]
--- NOTE | 2024-03-31 22:29 | NURSING ---
pt leaving [facility]. pt stated she is feeling better and wants to recover at home.
--- NOTE | 2024-03-31 22:31 | PCM.HOSP.N ---
Hospitalist Note Notified per RN patient leaving [facility] 03/31/24 10:31 pm.
== END 2024-03-31 22:35 | disposition left against medical advice (07) | DRG 894 ==
LOC: ED 14:10 → MS3 14:40
PROVIDERS: Admitting Provider Internal Medicine; Emergency Provider Emergency Medicine; PCP Pediatrics; Visit Provider Internal Medicine
DX: F11.93 Opioid use, unspecified with withdrawal (principal); Z53.29 Procedure and treatment not carried out because of patient's decision for other reasons; Z87.891 Personal history of nicotine dependence
CPT/HCPCS: 80053; 80307; 82077; 84703; 85025; 99283

== ENCOUNTER 2024-04-21 15:22 | Inpatient (IN) | payer SELFPAY ==
[2024-04-21] VITALS (7 sets, daily range): BP systolic 97–116; BP diastolic 61–73; PULSE 36–62; RESP 12–18; TEMP 36.1–36.8; O2SAT 97–100; BMI 17.0; BMI 17.2
--- NOTE | 2024-04-21 15:36 | EKG12_ITS ---
Test Reason : OD Blood Pressure : / mmHG Vent. Rate : 036 BPM Atrial Rate : 036 BPM P-R Int : 120 ms QRS Dur : 082 ms QT Int : 534 ms P-R-T Axes : 073 082 057 degrees QTc Int : 412 ms Critical Test Result: Low HR Marked sinus bradycardia Abnormal ECG Confirmed by Wilfred Cheek ([id number]), multimedia editor CB GOOD ([id number]) on 04/22/2024 2:01:27 PM Referred By: Confirmed By:Wilfred Cheek
--- NOTE | 2024-04-21 15:41 | EX.ED.SAOD ---
HPI History of Present Illness Chief Complaint: Substance Abuse Detail of Chief Complaint: Lightheadedness and detox from fentanyl Informant: patient Onset/Context/Timing Onset: Hours (Lightheadedness for hours) and Month(s) Context: Sudden Onset Timing: Continuous Quality: Patient states friend purchased the fentanyl. She snorts. She does not in Location: Orthostatic lightheadedness Current Severity: Mild Maximum Severity: Severe Worsened by: Upright position Relieved by: Nothing Associated Symptoms Associated Symptoms: Positive for unknown; Negative for vomiting*, diarrhea*, fever*, rash*, seizure, tremor, palpatations, change in mental status, sex for drugs* or *HIV Risk Factors:Consider testing if last test > 6 months Narrative Narrative: Patient is a 23-year-old. She has history of fentanyl use. She presents for detox. She is status post appendectomy. She snorted a couple hours prior to presentation. She appears pale. She states has been told she looks pale. She feels lightheaded. She was brought immediately from triage because of a heart rate of 32. She has no history of slow heart rate. She is on no medication. Prior similar symptoms: No Recent Illness/Hospitalization: No [facility] Medical History Substance abuse Anxiety Depression Migraines Allergy/AdvReac Type Severity Reaction Status Date / Time No Known Allergies Allergy Verified 04/21/24 15:26 Surgical History History of appendectomy Social History (Updated 04/21/24 @ 15:[address] Wil Roberts MD) Smoking Status: Former smoker substance use type: opiates ROS ROS ED Constitutional Constitutional ED: Denies chills, fever(s), subjective or sweats Eyes Eyes: Denies blurry vision, change in vision or diplopia ENT ENT ED: Denies ear pain, rhinorrhea or sore throat Cardiovascular Cardiovascular: Denies chest pain or palpitations Respiratory/Chest Respiratory/Chest: Denies cough, dyspnea or dyspnea on exertion Gastrointestinal Gastrointestinal: Reports nausea; Denies abdominal pain, diarrhea or vomiting Genitourinary Genitourinary ED: Denies dysuria Musculoskeletal Musculoskeletal: Denies arthralgias, back pain, myalgias or neck pain Integumentary Denies abscess, Abrasions or rash Neurologic Neurologic: Denies headache(s), paresthesias or weakness Psychiatric Psychiatric: Denies anxiety or depression Endocrine Endocrinology: Denies cold intolerance or heat intolerance Hematologic/Lymphatic Hematologic/Lymphatic: Denies easy bleeding or easy bruising EXAM Physical Exam Const Vital Signs: 04/21/24 15:23 04/21/24 16:23 04/21/24 17:00 Temperature 97.0 F L Temperature Source Temporal Pulse Rate 40 L 42 L 36 L Respiratory Rate 12 17 18 Blood Pressure 114/73 115/68 116/63 Blood Pressure Mean 86 83 80 Pulse Ox 97 99 99 Oxygen Delivery Method Room Air Room Air Positive well nourished and well developed Constitutional Narrative: Patient does not appear well. She is pale. She is thin with a BMI of 17. General Appearance ED: well developed, NAD and pallor HEENT Reports TM's clear and dry mucous membranes HEENT Narrative: Posterior pharynx is normal. Nares patent. atraumatic; Negative for tenderness Tympanic Membrane ED: Yes TM's clear Mouth ED: Yes dry mucous membranes Mouth: dry mucous membranes Eyes PERRL and EOMs intact bilaterally General Eye ED: Negative for pale conjunctiva or scleral icterus Neck no lymphadenopathy, supple and no JVD Chest Wall inspection of chest normal and palpation of chest normal Resp normal respiratory effort and clear to auscultation bilaterally Cardio regular rhythm, S1 normal heart sound, S2 normal heart sound and no murmurs Rate: bradycardia GI soft to palpation, non-tender, non-distended and no masses Back/Spine no CVA tenderness Extremity Extremity Narrative: There is no clubbing or cyanosis. There is no track lowery. General Extremety ED: Negative for edema or tenderness General Extremity: Negative for edema Neuro oriented x3 and CN's II-XII intact bilaterally Iram Coma Scale: document GCS findings Spontaneous Obeys Commands Oriented 15 Sensorium / Orientation: alert Speech: speech normal Psych Mood & Affect: depressed Skin General Skin Exam: pallor; Negative for jaundice Lesions: no lesions Rashes: no rashes MDM MDM MDM Narrative Medical decision making narrative: Since patient's heart rates in the low to mid 30s external pacer pads were placed. She was placed on monitor. Appropriate labs for ED addiction was obtained as well as workup to assess why she may be bradycardic. This included troponin, electrolytes, thyroid Lab Data Attestation: I reviewed the patient's lab results. Lab results narrative: Electrolyte panel is unremarkable. Coags are normal. Lactate was normal. Troponin is normal. Alcohol is nondetected. Talk screen was positive for cannabinoids. test was negative. CBC is normal. Labs: Laboratory Results - last 24 hr 04/21/24 04/21/24 04/21/24 15:36 15:51 16:17 WBC 4.7 RBC 4.76 Hgb 14.0 Hct 41.0 MCV 86.1 MCH 29.4 MCHC 34.1 RDW Std Deviation 36.1 RDW Coeff of Mikki 11.5 L Plt Count 275 MPV 10.0 Immature Gran % (Auto) 0.200 Neut % (Auto) 48.8 Lymph % (Auto) 44.4 H Coleman % (Auto) 5.1 Eos % (Auto) 0.4 Baso % (Auto) 1.1 H Absolute Neuts (auto) 2.3 Absolute Lymphs (auto) 2.10 Nucleated RBC % 0 PT 13.8 INR 1.1 APTT 46.2 H Sodium 138 Potassium 4.4 Chloride 105 Carbon Dioxide 26.0 Anion Gap 7 BUN 13 Creatinine 0.74 Estim Creat Clear Calc 84.24 Est GFR (MDRD) Af Amer 125 Est GFR (MDRD) Non-Af 103 BUN/Creatinine Ratio 17.7 Glucose 112 H Lactic Acid 1.0 Calcium 10.2 H Total Bilirubin 0.70 Direct Bilirubin 0.17 AST 28 ALT 33 Alkaline Phosphatase 134 H Troponin I High Sens 4 Total Protein 8.5 H Albumin 3.7 Globulin 4.8 H TSH 0.257 L Serum , Qual NEGATIVE Urine Opiates Screen Urine Methadone Screen Ur Barbiturates Screen Ur Phencyclidine Scrn Ur Amphetamines Screen MDMA (Ecstasy) Screen U Benzodiazepines Scrn Urine Cocaine Screen U Cannabinoids Screen Ur Drug Screen Comment Ethyl Alcohol 3.0 POC Glucose 98 04/21/24 16:41 WBC RBC Hgb Hct MCV MCH MCHC RDW Std Deviation RDW Coeff of Mikki Plt Count MPV Immature Gran % (Auto) Neut % (Auto) Lymph % (Auto) Coleman % (Auto) Eos % (Auto) Baso % (Auto) Absolute Neuts (auto) Absolute Lymphs (auto) Nucleated RBC % PT INR APTT Sodium Potassium Chloride Carbon Dioxide Anion Gap BUN Creatinine Estim Creat Clear Calc Est GFR (MDRD) Af Amer Est GFR (MDRD) Non-Af BUN/Creatinine Ratio Glucose Lactic Acid Calcium Total Bilirubin Direct Bilirubin AST ALT Alkaline Phosphatase Troponin I High Sens Total Protein Albumin Globulin TSH Serum , Qual Urine Opiates Screen NEGATIVE Urine Methadone Screen NEGATIVE Ur Barbiturates Screen NEGATIVE Ur Phencyclidine Scrn NEGATIVE Ur Amphetamines Screen NEGATIVE MDMA (Ecstasy) Screen NEGATIVE U Benzodiazepines Scrn NEGATIVE Urine Cocaine Screen NEGATIVE U Cannabinoids Screen POSITIVE H Ur Drug Screen Comment Ethyl Alcohol POC Glucose Radiography Chest X-Ray - ED: 1 View and Read by ED Physician (Pleural chest x-ray feels no pneumothorax, effusion, infiltrate, or any abnormality lung parenchyma. Cardiac silhouette size normal. Hilum is normal. Osseous structures are unremarkable.) Diagnostic Testing: Clinical Impression(s) from Imaging Studies Chest X-Ray 04/21/24 16:00 IMPRESSION: No radiographic evidence of acute cardiopulmonary disease. Electronically Signed: Miguel Monte DO at 16:18 EDT Reading Location ID and State: [address] [place] [address] Tel [phone], Service support , EKG Initial EKG: Attestation: I personally reviewed and interpreted this EKG as follows: Interpretation: Sinus Bradycardia (Rate is 36. Other than the significant bradycardia patient's EKG is unremarkable. GA interval is 120 ms Rickers duration 82 ms. QT duration 534 ms and axis is normal) Critical Care Time Critical Care Time: Yes Critical care time (excluding procedures): 30-74 minutes (21), Including time spent: (History, physical, documentation, interpretation of laboratory results), Discussing w/Patient &/or Family/Marketing Project Coordinator, Discussing w/Consultants, Arranging Admission or Transfer and Performing Direct Patient Care at Bedside (External pacer applied for severe bradycardia and observation) Discharge Plan Triage Chief Complaint: Substance Abuse ED Provider: Wil Roberts Dx/Rx/DC Orders Clinical Impression: Bradycardia, severe sinus, Desire for detoxification, Fentanyl use disorder, moderate, dependence, Orthostatic lightheadedness Primary Care Provider: Ge Romo Referrals: Ge Romo MD [Primary Care Provider] - Print Language: Swedish Disposition Disposition: Acute Care Hospital [facility]
[2024-04-21 15:58] LABS: Absolute Neutrophil Count 2.3 X10^3/uL (2.0-7.7); Basophil# 0.05 X10^3/uL; Basophil% 1.1 % (0-1); Eosinophil# 0.02 X10^3/uL; Eosinophils% 0.4 % (0-5); Lymphocyte % 44.4 % (19-41); Mean Corp Hgb Conc 34.1 g/dL (32-36); Mean Corpuscular Hgb 29.4 pg (27.0-32.0); Mean Corpuscular Volume 86.1 fL (81-99); Monocyte# 0.24 X10^3/uL; Monocyte% 5.1 % (0-10); NRBC Flagged by Analyzer 0 % (0-5); Neutrophil # 2.31 X10^3/uL (2.7-7.7); Neutrophil % 48.8 % (47-70); Platelet Count 275 K/mm3 (150-450); RBC Distribution Width CV 11.5 % (11.6-14.6); RBC Distribution Width SD 36.1 fl (35.1-43.9); Red Blood Count 4.76 M/mm3 (4.2-5.4); White Blood Count 4.7 K/mm3 (4.4-11.0)
--- NOTE | 2024-04-21 16:00 | RAD_ITS ---
INDICATION: SOB EXAMINATION/TECHNIQUE: X-RAY - XR Chest 1 View COMPARISON: August 13, 2010 FINDINGS: LINES/DEVICES: None. LUNGS: No consolidation, edema or effusion. No pneumothorax. MEDIASTINUM AND CARDIOVASCULAR STRUCTURES: Cardiac silhouette not enlarged. Central airways and mediastinal contour are unremarkable. BONES AND SOFT TISSUES: Mild scoliosis. RAD/Chest 1 View (Portable) IMPRESSION: No radiographic evidence of acute cardiopulmonary disease. Electronically Signed: Miguel Monte DO at 16:18 EDT ,
[2024-04-21 16:04] LABS: International Normalized Ratio 1.1; Prothrombin Time (Protime)PT. 13.8 SECONDS (11.7-14.9)
[2024-04-21 16:05] LABS: Partial Thromboplast Time 46.2 Seconds (24.1-36.2)
[2024-04-21 16:09] LABS: Bedside Glucose 98 mg/dL (74-106)
[2024-04-21 16:25] LABS: Internal QC Validated? YES +Cl - CLEAR BKGD; Pregnancy, Serum, hCG Quali. NEGATIVE Negative; Record Kit Lot#, Serum Preg. 772476
[2024-04-21 16:34] LABS: AST(SGOT) 28 U/L (15-37); Alanine Aminotransfer ALT/SGPT 33 U/L (13-56); Albumin, Serum 3.7 g/dL (3.2-5.0); Alkaline Phosphatase 134 U/L (45-117); Anion Gap 7 (5-15); BUN 13 mg/dL (7-18); BUN/Creat Ratio 17.7 RATIO (10-20); Bilirubin, Direct 0.17 mg/dL (0.00-0.30); Calcium,Total 10.2 mg/dL (8.5-10.1); Chloride 105 mmol/L (98-107); Creatinine, Serum 0.74 mg/dL (0.55-1.02); EST Glomerular Filtration Rate 103 mL/min (>60); Est Glom Filt Rate - Afr Amer 125 mL/min (>60); Estimated Creatinine Clearance 84.24 ml/min; Globulin 4.8 g/dL (2.2-4.2); Glucose 112 mg/dL (74-106); Potassium 4.4 mmol/L (3.5-5.1); Protein, Total 8.5 g/dL (6.4-8.2); Sodium Level 138 mmol/L (136-145); Thyroid Stim Hormone (TSH) 0.257 uIU/mL (0.358-3.740); Troponin-I HS 4 pg/mL (3.0-54.0)
[2024-04-21] MEDS: LORazepam 0.5 MG Tablet PO (16:52)
[2024-04-21 17:28] LABS: Amphetamine Urine VISTA NEGATIVE (<1000 ng/mL); Barbiturate Urine VISTA NEGATIVE (< 200 ng/mL); Benzodiazepine Urine VISTA NEGATIVE (< 200 ng/mL); Cocaine Urine VISTA NEGATIVE (< 300 ng/mL); Ecstacy Urine VISTA NEGATIVE (< 500 ng/mL); Methadone Urine VISTA NEGATIVE (< 300 ng/mL); PCP Urine VISTA NEGATIVE (< 25 ng/mL); THC Urine VISTA POSITIVE (< 50 ng/mL); Vista UDS pH Range 5
--- NOTE | 2024-04-21 18:32 | PCM.HP.STD ---
HPI - General General Date of Admission: 04/21/24 Date of Service: 04/21/24 Chief Complaint: Requesting fentanyl detox HPI Narrative ANA SHAH, is a 23 F with history of fentanyl use who presented to [facility] ED 04/21/2024 requesting fentanyl detox. When patient presented she was pale and felt little bit lightheaded, noted of heart rate of 32 and was taken to room and pacer pads placed but patient required no intervention and symptoms resolved and heart rate began to improve. Hospitalist contacted for detox admission. Patient evaluated at bedside, heart rate mid to high 30s and when patient woke up heart rate improved and 40s. She reports she last used fentanyl a couple hours prior to arrival and that she snorts roughly a gram per day and has been using around 3 years. Reports she is starting to feel a little generally unwell and like she has beginning withdrawal but has not began to have overt symptoms. Other than the brief lightheaded episode on arrival patient denies any other lightheadedness or dizziness, no chest pain or shortness of breath. ROS otherwise negative. Denies any alcohol, tobacco, or other substance use aside from fentanyl and denies any IV drug use [facility] Medical History Substance abuse Anxiety Depression Migraines Home Medications ?Medication ?Instructions ?Recorded ?Last Taken ?Type NK 04/21/24 Unknown History Allergy/AdvReac Type Severity Reaction Status Date / Time No Known Allergies Allergy Verified 04/21/24 15:26 Surgical History History of appendectomy Social History (Updated 04/21/24 @ 15:[address] Wil Roberts MD) Smoking Status: Former smoker substance use type: opiates ROS ROS Narrative General: Denies fever/chills, beginning to feel little hot and cold like she is going through withdrawal HENT: Denies headache, denies stuffy nose, denies sore throat EYES: Denies changes in vision Resp: Denies cough, denies shortness of breath Cardiac: Denies chest pain GI: Denies abdominal pain, denies changes in bowel, denies nausea/vomiting : Denies changes in urination Extremity: Denies swelling MSK: Denies weakness Neuro: Denies any numbness/tingling Heme: Denies any bleeding or bruising Skin: Denies rashes Psychiatric: No complaints voiced Vital Signs Vital Signs Vital Signs: 04/21/24 15:23 04/21/24 16:23 04/21/24 17:00 Temperature 97.0 F L Temperature Source Temporal Pulse Rate 40 L 42 L 36 L Respiratory Rate 12 17 18 Blood Pressure 114/73 115/68 116/63 Blood Pressure Mean 86 83 80 Pulse Ox 97 99 99 Oxygen Delivery Method Room Air Room Air 04/21/24 18:00 04/21/24 18:16 Temperature 98.2 F Temperature Source Pulse Rate 38 L 38 L Respiratory Rate 18 18 Blood Pressure 106/61 106/61 Blood Pressure Mean 76 76 Pulse Ox 98 98 Oxygen Delivery Method Room Air Weight Weight: 45.132 kg Body Mass Index (BMI) 17.0 Physical Exam Narrative General: Alert, oriented, no apparent distress, does appear pale HEENT: Atraumatic, normocephalic Eyes: Anicteric, normal conjunctiva, extraocular movements grossly intact Neck: Supple Respiratory: Clear to auscultation bilaterally, normal respiratory effort Cardiovascular: Bradycardic, bradycardia does improve some when waking up and interacting with exam GI: Soft, nontender, nondistended Extremities: No edema Musculoskeletal: Moving all extremities Neuro: No overt focal neurological deficits Skin: No rashes appreciated, does appear pale Psych: Cooperative Results Lab / Micro Data 04/21/24 15:36 04/21/24 15:36 Labs: Laboratory Results - last 24 hr 04/21/24 15:36: WBC 4.7, RBC 4.76, Hgb 14.0, Hct 41.0, MCV 86.1, MCH 29.4, MCHC 34.1, RDW Std Deviation 36.1, RDW Coeff of Mikki 11.5 L, Plt Count 275, MPV 10.0, Immature Gran % (Auto) 0.200, Neut % (Auto) 48.8, Lymph % (Auto) 44.4 H, [place] % (Auto) 5.1, Eos % (Auto) 0.4, Baso % (Auto) 1.1 H, Absolute Neuts (auto) 2.3, Absolute Lymphs (auto) 2.10, Nucleated RBC % 0, PT 13.8, INR 1.1, APTT 46.2 H, Sodium 138, Potassium 4.4, Chloride 105, Carbon Dioxide 26.0, Anion Gap 7, BUN 13, Creatinine 0.74, Estim Creat Clear Calc 84.24, Est GFR (MDRD) Af Amer 125, Est GFR (MDRD) Non-Af 103, BUN/Creatinine Ratio 17.7, Glucose 112 H, Calcium 10.2 H, Total Bilirubin 0.70, Direct Bilirubin 0.17, AST 28, ALT 33, Alkaline Phosphatase 134 H, Troponin I High Sens 4, Total Protein 8.5 H, Albumin 3.7, Globulin 4.8 H, TSH 0.257 L, Serum , Qual NEGATIVE, Ethyl Alcohol 3.0 04/21/24 15:51: POC Glucose 98 04/21/24 16:17: Lactic Acid 1.0 04/21/24 16:41: Urine Opiates Screen NEGATIVE, Urine Methadone Screen NEGATIVE, Ur Barbiturates Screen NEGATIVE, Ur Phencyclidine Scrn NEGATIVE, Ur Amphetamines Screen NEGATIVE, MDMA (Ecstasy) Screen NEGATIVE, U Benzodiazepines Scrn NEGATIVE, Urine Cocaine Screen NEGATIVE, U Cannabinoids Screen POSITIVE H, Ur Drug Screen Comment Imaging Radiology Impression Chest X-Ray 04/21/24 16:00 IMPRESSION: No radiographic evidence of acute cardiopulmonary disease. Electronically Signed: Miguel Monte DO at 16:18 EDT Reading Location ID and State: [facility] / [place] Tel [phone], Service support , Assessment & Plan Assessment/Plan (1) Desire for detoxification: (2) Bradycardia: PLAN: Plan #Acute opiate withdrawal - Subutex taper initiated - As needed Tylenol, bowel regimen, gabapentin, Bentyl, Vistaril with holding parameters for heart rate and adjusted doses - As needed melatonin nightly - As needed antiemetics -Once patient begins to clinically improve will discuss further discharge planning # Sinus bradycardia -Patient initially lightheaded on presentation with heart rate of 32, symptoms resolved independently and heart rate was 30s while sleeping in 40s while awake and was improving the further way patient was from last use of fentanyl -Suspect this has to do with drug ingestion -Asked the patient be ambulated around the room to monitor heart rate and for symptoms as patient would need transferred if symptomatic or if heart rate did not appropriately respond -Heart rate increased appropriately with ambulation and patient had no further symptoms -Will monitor on telemetry overnight and order echocardiogram for the a.m. -Holding parameters for withdrawal support medications #DVT ppx: SCDs Virginia Goss MD Time spent in the patient's overall evaluation,decision-making process, review of diagnostic data, adjustment of management, discussion with other providers, nursing nursing and ancillary staff involved in patient's care documentation, 57 Minutes Charges/Coding Visit Charges Inpatient E&M: 06713 Init Hosp L2
[2024-04-21] MEDS: 0.9% Saline Lock 10 ML Syringe IV ×2 (20:49→21:57)
[2024-04-21] MEDS: MELATONIN 10 MG TABLET PO (21:13)
[2024-04-21] MEDS: Dicyclomine 10 MG Capsule 20 MG PO (21:13)
[2024-04-21] MEDS: hydrOXYzine 10 MG Tablet PO (21:14)
[2024-04-21] MEDS: 0.9% Normal Saline (1000mL) 1,000 ML 50 ML IV (21:50)
[2024-04-21] MEDS: Buprenorphine HCl 2 MG TAB.SUBL 4 MG SL (22:19)
[2024-04-21] MEDS: Gabapentin 100 MG Capsule PO (22:20)
--- NOTE | 2024-04-21 23:01 | EKG12_ITS ---
Test Reason : Blood Pressure : / mmHG Vent. Rate : 079 BPM Atrial Rate : 079 BPM P-R Int : 128 ms QRS Dur : 084 ms QT Int : 402 ms P-R-T Axes : 079 077 051 degrees QTc Int : 460 ms Sinus rhythm with marked sinus arrhythmia Nonspecific ST abnormality Abnormal ECG When compared with ECG of 21-APR-2024 15:42, MANUAL COMPARISON REQUIRED, DATA IS UNCONFIRMED Confirmed by Wilfred Cheek ([id number]), editorial manager FILIBERTO ESCALANTE ([id number]) on 04/23/2024 6:35:31 AM Referred By: Confirmed By:Wilfred Cheek
[2024-04-21] MEDS: 0.9% Normal Saline (1000mL) 1,000 ML 999 ML IV (23:32)
--- NOTE | 2024-04-21 23:37 | NURSING ---
This RN attempted to hang fluid bolus, pt originally refused, stating that it will make her feel worse. Pt reeducated and accepted the bolus after.
[2024-04-22] MEDS: hydrOXYzine 50 MG/ML Vial 100 MG IM (00:37)
[2024-04-22 00:45] VITALS: BP 108/52; PULSE 84; RESP 16; TEMP 37.2; O2SAT 100
[2024-04-22] MEDS: hydrOXYzine 10 MG Tablet PO (03:14)
--- NOTE | 2024-04-22 03:29 | NURSING ---
Pt observed scrolling on phone, when reminded of the phone policy and that they are not allowed pt wanted to leave against medical advice. IV removed. Pt walked down to ED awaiting ride.
--- NOTE | 2024-04-22 03:36 | NURSING ---
This RN observed pt on phone, but pt denied having. Eventually admitted to having phone and wanted to leave. Signed AMA paper and called for ride. IV and cardiac exercise specialist taken off. Pt walked to ER.
== END 2024-04-22 03:45 | disposition left against medical advice (07) | DRG 309 ==
LOC: ED 17:56 → PCU 19:27
PROVIDERS: Admitting Provider Internal Medicine; Emergency Provider Emergency Medicine; PCP Pediatrics; Visit Provider Internal Medicine
DX: R00.1 Bradycardia, unspecified (principal); F11.23 Opioid dependence with withdrawal; Z53.29 Procedure and treatment not carried out because of patient's decision for other reasons; Z87.891 Personal history of nicotine dependence; Z90.89 Acquired absence of other organs
CPT/HCPCS: 36415; 71045; 80048; 80076; 80307; 82077; 82962; 83605; 84443; 84484; 84703; 85025; 85610; 85730; 93005; 99284; J7030; A4216

== ENCOUNTER 2025-03-22 23:44 | Emergency (ER) | payer SELFPAY ==
[2025-03-22 23:44] VITALS: BP 122/79; PULSE 67; RESP 18; TEMP 36.3; O2SAT 98; BMI 18.9
--- NOTE | 2025-03-23 00:22 | EDS_ITS ---
HPI History of Present Illness Chief Complaint: Overdose Informant: patient Narrative Narrative: 24-year-old female history of opiate use, she states she uses daily and snorted fentanyl tonight lost consciousness in front of her friend to give her Narcan woke her up. States he feels woozy now. She denies suicidal intent or gesture. When asked if she wants detox she states maybe. States he had a little bit of alcohol tonight nothing else intentional. PFSH PFS Medical History Substance abuse Anxiety Depression Migraines Home Medications ?Medication ?Instructions ?Recorded ?Last Taken ?Type NK 04/21/24 Unknown History Allergy/AdvReac Type Severity Reaction Status Date / Time No Known Allergies Allergy Verified 03/22/25 23:44 Surgical History History of appendectomy Social History Smoking Status: Current every day smoker tobacco type: cigarettes and e- cigarettes substance use type: opiates ROS ROS ED Constitutional Constitutional ED: Reports malaise and other Details: woosey ; Denies chills or fever(s) Eyes Eyes: Denies change in vision or diplopia ENT ENT ED: Denies rhinorrhea or sore throat Cardiovascular Cardiovascular: Denies chest pain or palpitations Respiratory/Chest Respiratory/Chest: Denies cough or dyspnea Gastrointestinal Gastrointestinal: Denies abdominal pain, diarrhea, nausea or vomiting Genitourinary Genitourinary ED: Denies dysuria or hematuria Musculoskeletal Musculoskeletal: Denies back pain or neck pain Integumentary Denies abscess or rash Neurologic Neurologic: Denies headache(s), paresthesias or weakness Psychiatric Psychiatric: Denies anxiety or suicidal thoughts EXAM Physical Exam Const Vital Signs: 03/22/25 23:44 Temperature 97.3 F L Temperature Source Temporal Pulse Rate 67 Respiratory Rate 18 Blood Pressure 122/79 H Blood Pressure Mean 93 Pulse Ox 98 Oxygen Delivery Method Room Air Positive well nourished and well developed General Appearance ED: well developed and NAD HEENT Reports moist mucous membranes normocephalic and atraumatic Eyes PERRL and EOMs intact bilaterally Neck full ROM and supple Resp normal respiratory effort and clear to auscultation bilaterally Cardio regular rate, regular rhythm and no murmurs GI non-tender and non-distended Auscultation: normoactive bowel sounds Palpation: soft Back/Spine no CVA tenderness General Back: other FROM Extremity normal to inspection General Extremety ED: Negative for edema, pulses abnormal or tenderness General Extremity: Negative for edema or pulses abnormal Neuro oriented x3, CN's II-XII intact bilaterally and no sensory deficits noted Sensorium / Orientation: awake and alert Motor Exam: strength 5/5 throughout Skin no rashes or lesions noted and no wounds MDM MDM MDM Narrative Medical decision making narrative: Patient was advised that she needs to be observed for a couple of hours at least, to make sure that she does not lose consciousness again after the Narcan wears off. Understanding this, she refused to stay and decided to elope from the emergency department without signing AMA papers anyway. She understands ramifications and I believe she has a capacity to make this decision, against which I recommend. I did ask her several times if she wanted detox, she did not commit to wanting detox and nurses asked if she wanted to be admitted to the [facility] program as well and she said no. Discharge Plan Triage Chief Complaint: Overdose ED Provider: Piero Mccauley Dx/Rx/DC Orders Clinical Impression: Opiate overdose, Fentanyl use disorder, moderate, dependence Prescriptions: No Action NK Primary Care Provider: Care Physician,No Primary Referrals: Ge Romo MD [Non-Staff] - Print Language: Frisian Disposition Disposition: Elopement Discharge Date/Time: 03/23/25 01:02
--- OUTSIDE RECORDS SUMMARY | 2025-03-23 00:31 | XMS RPT_ITS | CCD ---
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 Comment on above: Performed By: #### L 500.2500, L501.4020, L100.0100, L500.3400, L300.4310, L300.3900, L503.6005, L501.9100, L501.9520 #### [facility] [address] [place], [place], [id number] Basophils/100 WBC (Bld) 1.1 % High 0-1 [facility] Comment on above: Performed By: #### L 500.2500, L501.4020, L100.0100, L500.3400, L300.4310, L300.3900, L503.6005, L501.9100, L501.9520 #### [facility] [address] [place], [address] Eosinophils/100 WBC (Bld) 0.4 % Normal 0-5 [facility] Comment on above: Performed By: #### L 500.2500, L501.4020, L100.0100, L500.3400, L300.4310, L300.3900, L503.6005, L501.9100, L501.9520 #### [facility] [address] [place], [address] Erythrocyte distribution width (RBC) [Ratio] 11.5 % Low 11.6-14.6 [facility] Comment on above: Performed By: #### L 500.2500, L501.4020, L100.0100, L500.3400, L300.4310, L300.3900, L503.6005, L501.9100, L501.9520 #### [facility] [address] [place], [address] Hematocrit (Bld) [Volume fraction] 41.0 % Normal 37-47 [facility] Comment on above: Performed By: #### L 500.2500, L501.4020, L100.0100, L500.3400, L300.4310, L300.3900, L503.6005, L501.9100, L501.9520 #### [facility] [address] [place], [address] Hemoglobin (Bld) [Mass/Vol] 14.0 g/dL Normal 12.0-15.0 [facility] Comment on above: Performed By: #### L 500.2500, L501.4020, L100.0100, L500.3400, L300.4310, L300.3900, L503.6005, L501.9100, L501.9520 #### [facility] [address] [place], [address] IG% 0.200 Normal 0.0-0.9 [facility] Comment on above: Result Comment: IG% - Immature Granulocytes (promyelocytes, myelocytes and metamyelocytes) > 1% indicates that a LEFT SHIFT is Present. Performed By: #### L 500.2500, L501.4020, L100.0100, L500.3400, L300.4310, L300.3900, L503.6005, L501.9100, L501.9520 #### [facility] [address] [facility] [place], [address] Lymphocytes/100 WBC (Bld) 44.4 % High 19-41 [facility] Comment on above: Performed By: #### L 500.2500, L501.4020, L100.0100, L500.3400, L300.4310, L300.3900, L503.6005, L501.9100, L501.9520 #### [facility] [address] [facility] [place], [address] MCH (RBC) [Entitic mass] 29.4 pg Normal 27.0-32.0 [facility] Comment on above: Performed By: #### L 500.2500, L501.4020, L100.0100, L500.3400, L300.4310, L300.3900, L503.6005, L501.9100, L501.9520 #### [facility] [address] [place], [address] MCHC (RBC) [Mass/Vol] 34.1 g/dL Normal 32-36 [facility] Comment on above: Performed By: #### L 500.2500, L501.4020, L100.0100, L500.3400, L300.4310, L300.3900, L503.6005, L501.9100, L501.9520 #### [facility] [address] [facility] [place], [address] MCV (RBC) [Entitic vol] 86.1 fL Normal 81-99 [facility] Comment on above: Performed By: #### L 500.2500, L501.4020, L100.0100, L500.3400, L300.4310, L300.3900, L503.6005, L501.9100, L501.9520 #### [facility] [address] [place], [address] Monocytes/100 WBC (Bld) 5.1 % Normal 0-10 [facility] Comment on above: Performed By: #### L 500.2500, L501.4020, L100.0100, L500.3400, L300.4310, L300.3900, L503.6005, L501.9100, L501.9520 #### [facility] [address] [place], [address] Neutrophils/100 WBC (Bld) 48.8 % Normal 47-70 [facility] Comment on above: Performed By: #### L 500.2500, L501.4020, L100.0100, L500.3400, L300.4310, L300.3900, L503.6005, L501.9100, L501.9520 #### [facility] [address] [place], [address] Nucleated RBC (Bld) [#/Vol] 0 10*3/uL Normal 0-5 [facility] Comment on above: Performed By: #### L 500.2500, L501.4020, L100.0100, L500.3400, L300.4310, L300.3900, L503.6005, L501.9100, L501.9520 #### [facility] [address] [place], [address] Platelet mean volume (Bld) [Entitic vol] 10.0 fL Normal 6.2-12.0 [facility] Comment on above: Performed By: #### L 500.2500, L501.4020, L100.0100, L500.3400, L300.4310, L300.3900, L503.6005, L501.9100, L501.9520 #### [facility] [address] [place], [address] Platelets (Bld) [#/Vol] 275 10*3/uL Normal 150-450 [facility] Comment on above: Performed By: #### L 500.2500, L501.4020, L100.0100, L500.3400, L300.4310, L300.3900, L503.6005, L501.9100, L501.9520 #### [facility] [address] [place], [address] RBC (Bld) [#/Vol] 4.76 10*6/uL Normal 4.2-5.4 [facility] Comment on above: Performed By: #### L 500.2500, L501.4020, L100.0100, L500.3400, L300.4310, L300.3900, L503.6005, L501.9100, L501.9520 #### [facility] [address] [place], [address] RDW SD 36.1 fl Normal 35.1-43.9 [facility] Comment on above: Performed By: #### L 500.2500, L501.4020, L100.0100, L500.3400, L300.4310, L300.3900, L503.6005, L501.9100, L501.9520 #### [facility] [address] [place], [address] WBC (Bld) [#/Vol] 4.7 10*3/uL Normal 4.4-11.0 [facility] Comment on above: Performed By: #### L 500.2500, L501.4020, L100.0100, L500.3400, L300.4310, L300.3900, L503.6005, L501.9100, L501.9520 #### [facility] [address] [place], [address] Chest 1 View (Portable)on Chest 1 View (Portable) [facility] Imaging Services [address] [place] [address] Chest 1 View (Portable) MR#: [id number] Acct: [id number] Name: ANA WHITESIDE Rep #: [id number] : 2000 F 23 From: Miguel Monte DO PCP: Dr. Leigh Ann Ventura MD Status: PRE ER Study: Chest 1 View (Portable) Date of Exam: 04/21/24 Exam# [id number] Ordering Dr: Wil Roberts MD [id number] INDICATION: SOB EXAMINATION/TECHNIQUE : X-RAY - XR Chest 1 View COMPARISON: August 13, 2010 __ FINDINGS: LINES/DEVICES: None. LUNGS: No consolidation, edema or effusion. No pneumothorax. MEDIASTINUM AND CARDIOVASCULAR STRUCTURES: Cardiac silhouette not enlarged. Central airways and mediastinal contour are unremarkable. BONES AND SOFT TISSUES: Mild scoliosis. RAD/Chest 1 View (Portable) IMPRESSION: No radiographic evidence of acute cardiopulmonary disease. Electronically Signed: Miguel Motne DO at 16:18 EDT , CC: Dr. Leigh Ann Ventura MD; Dr. Wil Roberts MD Oven Dauber: Signed Normal [facility] Emergency Department Summary on 04-21-2024 Emergency Department Summary [facility] Medical Records Department [address] [place] [address] Emergency Department Summary 04/21/24 MR#: [id number] Acct: [id number] Name: ANA WHITESIDE Rep #: [id number] : 2000 23 From: Wil Roberts MD PCP: Dr. Leigh Ann Ventura MD Status:REG ER Location: ED HPI History of Present Illness Chief Complaint: Substance Abuse Detail of Chief Complaint: Lightheadedness and detox from fentanyl Informant: patient Onset/Context/Timing Onset: Hours (Lightheadedness for hours) and Month(s) Context: Sudden Onset Timing: Continuous Quality: Patient states friend purchased the fentanyl. She snorts. She does not in Location: Orthostatic lightheadedness Current Severity: Mild Maximum Severity: Severe Worsened by: Upright position Relieved by: Nothing Associated Symptoms Associated Symptoms: Positive for unknown; Negative for vomiting*, diarrhea*, fever*, rash*, seizure, tremor, palpatations, change in mental status, sex for drugs* or *HIV Risk Factors:Consider testing if last test > 6 months Narrative Narrative: Patient is a 23-year-old. She has history of fentanyl use. She presents for detox. She is status post appendectomy. She snorted a couple hours prior to presentation. She appears pale. She states has been told she looks pale. She feels lightheaded. She was brought immediately from triage because of a heart rate of 32. She has no history of slow heart rate. She is on no medication. Prior similar symptoms: No Recent Illness/Hospitalizati on: No PFSH PFSH Medical History Substance abuse Anxiety Depression Migraines Allergy/AdvReac Type Severity Reaction Status Date / Time No Known Allergies Allergy Verified 04/21/24 15:26 Surgical History History of appendectomy Social History (Updated 04/21/24 @ 15:[address] Wil Roberts MD) Smoking Status: Former smoker substance use type: opiates ROS ROS ED Constitutional Constitutional ED: Denies chills, fever(s), subjective or sweats Eyes Eyes: Denies blurry vision, change in vision or diplopia ENT ENT ED: Denies ear pain, rhinorrhea or sore throat Cardiovascular Cardiovascular: Denies chest pain or palpitations Respiratory/Chest Respiratory/Chest: Denies cough, dyspnea or dyspnea on exertion Gastrointestinal Gastrointestinal: Reports nausea; Denies abdominal pain, diarrhea or vomiting Genitourinary Genitourinary ED: Denies dysuria Musculoskeletal Musculoskeletal: Denies arthralgias, back pain, myalgias or neck pain Integumentary Denies abscess, Abrasions or rash Neurologic Neurologic: Denies headache(s), paresthesias or weakness Psychiatric Psychiatric: Denies anxiety or depression Endocrine Endocrinology: Denies cold intolerance or heat intolerance Hematologic/Lymphatic Hematologic/Lymphatic : Denies easy bleeding or easy bruising EXAM Physical Exam Const Vital Signs: 04/21/24 15:23 04/21/24 16:23 04/21/24 17:00 Temperature 97.0 F L Temperature Source Temporal Pulse Rate 40 L 42 L 36 L Respiratory Rate 12 17 18 Blood Pressure 114/73 115/68 116/63 Blood Pressure Mean 86 83 80 Pulse Ox 97 99 99 Oxygen Delivery Method Room Air Room Air Positive well nourished and well developed Constitutional Narrative: Patient does not appear well. She is pale. She is thin with a BMI of 17. General Appearance ED: well developed, NAD and pallor HEENT Reports TM's clear and dry mucous membranes HEENT Narrative: Posterior pharynx is normal. Nares patent. atraumatic; Negative for tenderness Tympanic Membrane ED: Yes TM's clear Mouth ED: Yes dry mucous membranes Mouth: dry mucous membranes Eyes PERRL and EOMs intact bilaterally General Eye ED: Negative for pale conjunctiva or scleral icterus Neck no lymphadenopathy, supple and no JVD Chest Wall inspection of chest normal and palpation of chest normal Resp normal respiratory effort and clear to auscultation bilaterally Cardio regular rhythm, S1 normal heart sound, S2 normal heart sound and no murmurs Rate: bradycardia GI soft to palpation, non-tender, non-distended and no masses Back/Spine no CVA tenderness Extremity Extremity Narrative: There is no clubbing or cyanosis. There is no track lowery. General Extremety ED: Negative for edema or tenderness General Extremity: Negative for edema Neuro oriented x3 and CN's II-XII intact bilaterally Iram Coma Scale: document GCS findings Spontaneous Obeys Commands Oriented 15 Sensorium / Orientation: alert Speech: speech normal Psych Mood Affect: depressed Skin General Skin Exam: pallor; Negative for jaundice Lesions: no lesions Rashes: no rashes MDM MDM MDM Narrative Medical decision making narrati (more content not included)... Normal [facility] H AND P Exam - Hospitaliston 04-21-2024 H&P Exam - Hospitalist [facility] Medical Records Department [address] [place] [address] H P Exam - Hospitalist 04/21/24 1832 MR#: [id number] Acct: [id number] Name: ANA WHITESIDE Rep #: [id number] : 2000 23 From: Virginia Goss MD PCP: Dr. Leigh Ann Ventura MD Status:REG ER Location: ED HPI - General General Date of Admission: 04/21/24 Date of Service: 04/21/24 Chief Complaint: Requesting fentanyl detox HPI Narrative ANA WHITESIDE is a 23 F with history of fentanyl use who presented to [facility] ED 04/21/2024 requesting fentanyl detox. When patient presented she was pale and felt little bit lightheaded, noted of heart rate of 32 and was taken to room and pacer pads placed but patient required no intervention and symptoms resolved and heart rate began to improve. Hospitalist contacted for detox admission. Patient evaluated at bedside, heart rate mid to high 30s and when patient woke up heart rate improved and 40s. She reports she last used fentanyl a couple hours prior to arrival and that she snorts roughly a gram per day and has been using around 3 years. Reports she is starting to feel a little generally unwell and like she has beginning withdrawal but has not began to have overt symptoms. Other than the brief lightheaded episode on arrival patient denies any other lightheadedness or dizziness, no chest pain or shortness of breath. ROS otherwise negative. Denies any alcohol, tobacco, or other substance use aside from fentanyl and denies any IV drug use [facility] Medical History Substance abuse Anxiety Depression Migraines Home Medications ???Medication ???Instructions ???Recorded ???Last Taken ???Type NK 04/21/24 Unknown History Allergy/AdvReac Type Severity Reaction Status Date / Time No Known Allergies Allergy Verified 04/21/24 15:26 Surgical History History of appendectomy Social History (Updated 04/21/24 @ 15:[address] Wil Roberts MD) Smoking Status: Former smoker substance use type: opiates ROS ROS Narrative General: Denies fever/chills, beginning to feel little hot and cold like she is going through withdrawal HENT: Denies headache, denies stuffy nose, denies sore throat EYES: Denies changes in vision Resp: Denies cough, denies shortness of breath Cardiac: Denies chest pain GI: Denies abdominal pain, denies changes in bowel, denies nausea/vomiting : Denies changes in urination Extremity: Denies swelling MSK: Denies weakness Neuro: Denies any numbness/tingling Heme: Denies any bleeding or bruising Skin: Denies rashes Psychiatric: No complaints voiced Vital Signs Vital Signs Vital Signs: 04/21/24 15:23 04/21/24 16:23 04/21/24 17:00 Temperature 97.0 F L Temperature Source Temporal Pulse Rate 40 L 42 L 36 L Respiratory Rate 12 17 18 Blood Pressure 114/73 115/68 116/63 Blood Pressure Mean 86 83 80 Pulse Ox 97 99 99 Oxygen Delivery Method Room Air Room Air 04/21/24 18:00 04/21/24 18:16 Temperature 98.2 F Temperature Source Pulse Rate 38 L 38 L Respiratory Rate 18 18 Blood Pressure 106/61 106/61 Blood Pressure Mean 76 76 Pulse Ox 98 98 Oxygen Delivery Method Room Air Weight Weight: 45.132 kg Body Mass Index (BMI) 17.0 Physical Exam Narrative General: Alert, oriented, no apparent distress, does appear pale HEENT: Atraumatic, normocephalic Eyes: Anicteric, normal conjunctiva, extraocular movements grossly intact Neck: Supple Respiratory: Clear to auscultation bilaterally, normal respiratory effort Cardiovascular: Bradycardic, bradycardia does improve some when waking up and interacting with exam GI: Soft, nontender, nondistended Extremities: No edema Musculoskeletal: Moving all extremities Neuro: No overt focal neurological deficits Skin: No rashes appreciated, does appear pale Psych: Cooperative Results Lab / Micro Data 04/21/24 15:36 04/21/24 15:36 Labs: Laboratory Results - last 24 hr 04/21/24 15:36: WBC 4.7, RBC 4.76, Hgb 14.0, Hct 41.0, MCV 86.1, MCH 29.4, MCHC 34.1, RDW Std Deviation 36.1, RDW Coeff of Mikki 11.5 L, Plt Count 275, MPV 10.0, Immature Gran % (Auto) 0.200, Neut % (Auto) 48.8, Lymph % (Auto) 44.4 H, [place] % (Auto) 5.1, Eos % (Auto) 0.4, Baso % (Auto) 1.1 H, Absolute Neuts (auto) 2.3, Absolute Lymphs (auto) 2.10, Nucleated RBC % 0, PT 13.8, INR 1.1, APTT 46.2 H, Sodium 138, Potassium 4.4, Chloride 105, Carbon Dioxide 26.0, Anion Gap 7, BUN 13, Creatinine 0.74, Estim Creat Clear Calc 84.24, Est GFR (MDRD) Af Amer 125, Est GFR (MDRD) Non-Af 103, BUN/Creatinine Ratio 17.7, Glucose 112 H, Calcium 10.2 H, Total Bilirubin 0.70, Direct Bilirubin 0.17, AST 28, ALT 33, Alkaline Phosphatase 134 H, Troponi (more content not included)... Normal [facility] L501.4020on 04-21-2024 TROPONIN-I HS 4 pg/mL Normal 3.0-54.0 [facility] Comment on above: Order Comment: 'TROP ' Serial specimen #1, #2 or #3: 1 Result Comment: Plea se Note: New Test Units and Gender Specific Reference Ranges. For more information see Policy Stat Procedure [place] High Sensitivity Troponin (TNIH) and attachments. Performed By: #### L 500.2500, L501.4020, L100.0100, L500.3400, L300.4310, L300.3900, L503.6005, L501.9100, L501.9520 #### [facility] [address] [place], [place], [address] Lactic Acidon 04-21-2024 Lactate [Moles/Vol] 1.0 mmol/L Normal 0.4-1.9 [facility] Comment on above: Order Comment: Y Performed By: #### L 500.2500, L501.4020, L100.0100, L500.3400, L300.4310, L300.3900, L503.6005, L501.9100, L501.9520 #### [facility] [address] [place], [address] Liver Profileon 04-21-2024 Albumin [Mass/Vol] 3.7 g/dL Normal 3.2-5.0 [facility] Comment on above: Order Comment: 'TROP ' Serial specimen #1, #2 or #3: 1 Performed By: #### L 500.2500, L501.4020, L100.0100, L500.3400, L300.4310, L300.3900, L503.6005, L501.9100, L501.9520 #### [facility] [address] [place], [place], [id number] ALK P 134 U/L High 45-117 [facility] Comment on above: Order Comment: 'TROP ' Serial specimen #1, #2 or #3: 1 Performed By: #### L 500.2500, L501.4020, L100.0100, L500.3400, L300.4310, L300.3900, L503.6005, L501.9100, L501.9520 #### [facility] [address] [place], [place], [id number] ALT [Catalytic activity/Vol] 33 U/L Normal 13-56 [facility] Comment on above: Order Comment: 'TROP ' Serial specimen #1, #2 or #3: 1 Performed By: #### L 500.2500, L501.4020, L100.0100, L500.3400, L300.4310, L300.3900, L503.6005, L501.9100, L501.9520 #### [facility] [address] [place], [place], [id number] [phone] AST [Catalytic activity/Vol] 28 U/L Normal 15-37 [facility] Comment on above: Order Comment: 'TROP ' Serial specimen #1, #2 or #3: 1 Performed By: #### L 500.2500, L501.4020, L100.0100, L500.3400, L300.4310, L300.3900, L503.6005, L501.9100, L501.9520 #### [facility] [address] [place], [address] Bilirubin [Mass/Vol] 0.70 mg/dL Normal 0.20-1.00 [facility] Comment on above: Order Comment: 'TROP ' Serial specimen #1, #2 or #3: 1 Result Comment: For patients on eltrombopag therapy, use of Dimension [place] TBIL is not recommended. Performed By: #### L 500.2500, L501.4020, L100.0100, L500.3400, L300.4310, L300.3900, L503.6005, L501.9100, L501.9520 #### [facility] [address] [place], [address] Bilirubin.direct [Mass/Vol] 0.17 mg/dL Normal 0.00-0.30 [facility] Comment on above: Order Comment: 'TROP ' Serial specimen #1, #2 or #3: 1 Performed By: #### L 500.2500, L501.4020, L100.0100, L500.3400, L300.4310, L300.3900, L503.6005, L501.9100, L501.9520 #### [facility] [address] [place], [address] Globulin (S) [Mass/Vol] 4.8 g/dL High 2.2-4.2 [facility] Comment on above: Order Comment: 'TROP ' Serial specimen #1, #2 or #3: 1 Performed By: #### L 500.2500, L501.4020, L100.0100, L500.3400, L300.4310, L300.3900, L503.6005, L501.9100, L501.9520 #### [facility] [address] [place], [address] T PROT 8.5 g/dL High 6.4-8.2 [facility] Comment on above: Order Comment: 'TROP ' Serial specimen #1, #2 or #3: 1 Performed By: #### L 500.2500, L501.4020, L100.0100, L500.3400, L300.4310, L300.3900, L503.6005, L501.9100, L501.9520 #### [facility] [address] [place], [address] Partial Thromboplast Timeon 04-21-2024 aPTT Coag (Bld) [Time] 46.2 s High 24.1-36.2 [facility] Comment on above: Performed By: #### L 500.2500, L501.4020, L100.0100, L500.3400, L300.4310, L300.3900, L503.6005, L501.9100, L501.9520 #### [facility] [address] [place], [address] ,Serum,hCG Quali.on 04-21-2024 HCG, SERUM QUAL Negative Normal [facility] Comment on above: Order Comment: Compl ete for all females age 13-50 years old Performed By: #### L 500.2500, L501.4020, L100.0100, L500.3400, L300.4310, L300.3900, L503.6005, L501.9100, L501.9520 #### [facility] [address] [place], [address] Prothrombin Time w/INRon INR Coag (PPP) [Relative time] 1.1 {INR} Normal [facility] Comment on above: Performed By: #### L 500.2500, L501.4020, L100.0100, L500.3400, L300.4310, L300.3900, L503.6005, L501.9100, L501.9520 #### [facility] [address] [place], [address] PT Coag (PPP) [Time] 13.8 s Normal 11.7-14.9 [facility] Comment on above: Performed By: #### L 500.2500, L501.4020, L100.0100, L500.3400, L300.4310, L300.3900, L503.6005, L501.9100, L501.9520 #### [facility] [address] [place], [address] Thyroid Stim Hormone (TSH)on 04-21-2024 TSH 0.257 uIU/mL Low 0.358-3.740 [facility] Comment on above: Order Comment: 'TROP ' Serial specimen #1, #2 or #3: 1 Performed By: #### L 500.2500, L501.4020, L100.0100, L500.3400, L300.4310, L300.3900, L503.6005, L501.9100, L501.9520 #### [facility] [address] [place], [place], [id number] Urine Drug Screen (VISTA)on 04-21-2024 AMPHETAMINES Negative Normal <1000 ng/mL [facility] Comment on above: Performed By: #### L 500.2500, L501.4020, L100.0100, L500.3400, L300.4310, L300.3900, L503.6005, L501.9100, L501.9520 #### [facility] [address] [place], [place], [id number] BARBITIURATES Negative Normal < 200 ng/mL [facility] Comment on above: Performed By: #### L 500.2500, L501.4020, L100.0100, L500.3400, L300.4310, L300.3900, L503.6005, L501.9100, L501.9520 #### [facility] [address] [place], [address] BENZODIAZIPINE Negative Normal < 200 ng/mL [facility] Comment on above: Performed By: #### L 500.2500, L501.4020, L100.0100, L500.3400, L300.4310, L300.3900, L503.6005, L501.9100, L501.9520 #### [facility] [address] [place], [address] COCAINE Negative Normal < 300 ng/mL [facility] Comment on above: Performed By: #### L 500.2500, L501.4020, L100.0100, L500.3400, L300.4310, L300.3900, L503.6005, L501.9100, L501.9520 #### [facility] [address] [place], [place], [phone] ECSTACY Negative Normal < 500 ng/mL [facility] Comment on above: Performed By: #### L 500.2500, L501.4020, L100.0100, L500.3400, L300.4310, L300.3900, L503.6005, L501.9100, L501.9520 #### [facility] [address] [place], [address] METHADONE Negative Normal < 300 ng/mL [facility] Comment on above: Performed By: #### L 500.2500, L501.4020, L100.0100, L500.3400, L300.4310, L300.3900, L503.6005, L501.9100, L501.9520 #### [facility] [address] [place], [place], [id number] OPIATES Negative Normal < 300 ng/mL [facility] Comment on above: Performed By: #### L 500.2500, L501.4020, L100.0100, L500.3400, L300.4310, L300.3900, L503.6005, L501.9100, L501.9520 #### [facility] [address] [place], [place], [phone] PCP Negative Normal < 25 ng/mL [facility] Comment on above: Performed By: #### L 500.2500, L501.4020, L100.0100, L500.3400, L300.4310, L300.3900, L503.6005, L501.9100, L501.9520 #### [facility] [address] [place], [place], [id number] THC Positive Abnormal < 50 ng/mL [facility] Comment on above: Performed By: #### L 500.2500, L501.4020, L100.0100, L500.3400, L300.4310, L300.3900, L503.6005, L501.9100, L501.9520 #### [facility] [address] [place], [address] VISTA UDS PH 5 Normal [facility] Comment on above: Performed By: #### L 500.2500, L501.4020, L100.0100, L500.3400, L300.4310, L300.3900, L503.6005, L501.9100, L501.9520 #### [facility] [address] [place], [place], [id number] Alcohol, Blood (Medical)-Ser umon 03-31-2024 SERUM ETOH < 3.0 Normal [facility] Comment on above: Result Comment: The serum:whole blood ethanol ratio is approximately 1.14 and varies slightly with hematocrit. Medical Alcohol reference interval and critical value in non-tolerant individuals; 50 - 100 Impairment 100 Intoxication 100 - 250 Severe Poisoning 250 - 400 Deep/possible fatal coma Performed By: #### L 500.2500, L501.4020, L100.0100, L500.3400, L300.4310, L300.3900, L503.6005, L501.9100, L501.9520 #### [facility] [address] [place], [place], [id number] CBC W/Diff, Automatedon 08- ATYPICAL LYMPH 1+ Normal [facility] Comment on above: Performed By: #### L 500.2500, L501.4020, L100.0100, L500.3400, L300.4310, L300.3900, L503.6005, L501.9100, L501.9520 #### [facility] [address] [place], [place], [id number] Comprehensive Metabolic Prof ilon 03-31-2024 Albumin [Mass/Vol] 3.4 g/dL Normal 3.2-5.0 [facility] Comment on above: Performed By: #### L 500.2500, L501.4020, L100.0100, L500.3400, L300.4310, L300.3900, L503.6005, L501.9100, L501.9520 #### [facility] [address] [place], [place], [id number] Albumin/Globulin [Mass ratio] 0.8 {ratio} Low 0.9-2.4 [facility] Comment on above: Performed By: #### L 500.2500, L501.4020, L100.0100, L500.3400, L300.4310, L300.3900, L503.6005, L501.9100, L501.9520 #### [facility] [address] [place], [place], [id number] ALK P 186 U/L High 45-117 [facility] Comment on above: Performed By: #### L 500.2500, L501.4020, L100.0100, L500.3400, L300.4310, L300.3900, L503.6005, L501.9100, L501.9520 #### [facility] [address] [place], [address] ALT [Catalytic activity/Vol] 50 U/L Normal 13-56 [facility] Comment on above: Performed By: #### L 500.2500, L501.4020, L100.0100, L500.3400, L300.4310, L300.3900, L503.6005, L501.9100, L501.9520 #### [facility] [address] [place], [address] AST [Catalytic activity/Vol] 34 U/L Normal 15-37 [facility] Comment on above: Performed By: #### L 500.2500, L501.4020, L100.0100, L500.3400, L300.4310, L300.3900, L503.6005, L501.9100, L501.9520 #### [facility] [address] [place], [address] Bilirubin [Mass/Vol] 0.70 mg/dL Normal 0.20-1.00 [facility] Comment on above: Result Comment: For patients on eltrombopag therapy, use of Dimension [place] TBIL is not recommended. Performed By: #### L 500.2500, L501.4020, L100.0100, L500.3400, L300.4310, L300.3900, L503.6005, L501.9100, L501.9520 #### [facility] [address] [place], [address] BUN/CRE 18.6 RATIO Normal 10-20 [facility] Comment on above: Performed By: #### L 500.2500, L501.4020, L100.0100, L500.3400, L300.4310, L300.3900, L503.6005, L501.9100, L501.9520 #### [facility] [address] [place], [address] CA,Total 8.8 mg/dL Normal 8.5-10.1 [facility] Comment on above: Performed By: #### L 500.2500, L501.4020, L100.0100, L500.3400, L300.4310, L300.3900, L503.6005, L501.9100, L501.9520 #### [facility] [address] [place], [address] Chloride [Moles/Vol] 102 mmol/L Normal 98-107 [facility] Comment on above: Performed By: #### L 500.2500, L501.4020, L100.0100, L500.3400, L300.4310, L300.3900, L503.6005, L501.9100, L501.9520 #### [facility] [address] [place], [address] CO2 [Moles/Vol] 25.0 mmol/L Normal 21.0-32.0 [facility] Comment on above: Performed By: #### L 500.2500, L501.4020, L100.0100, L500.3400, L300.4310, L300.3900, L503.6005, L501.9100, L501.9520 #### [facility] [address] [place], [address] Creatinine [Mass/Vol] 0.54 mg/dL Low 0.55-1.02 [facility] Comment on above: Result Comment: The validity of the calculated GFR GFRAA in patients over 70 years has not been determined. Clinical correlation is essential. Performed By: #### L 500.2500, L501.4020, L100.0100, L500.3400, L300.4310, L300.3900, L503.6005, L501.9100, L501.9520 #### [facility] [address] [place], [place], [id number] ECRCL 111.96 ml/min Normal [facility] Comment on above: Performed By: #### L 500.2500, L501.4020, L100.0100, L500.3400, L300.4310, L300.3900, L503.6005, L501.9100, L501.9520 #### [facility] [address] [place], [address] EST GFR - AA 179 mL/min Normal >60 [facility] Comment on above: Result Comment: Afri can Trin[place] GFR Calc Performed By: #### L 500.2500, L501.4020, L100.0100, L500.3400, L300.4310, L300.3900, L503.6005, L501.9100, L501.9520 #### [facility] [address] [place], [place], [id number] GAP 8 Normal 5-15 [facility] Comment on above: Performed By: #### L 500.2500, L501.4020, L100.0100, L500.3400, L300.4310, L300.3900, L503.6005, L501.9100, L501.9520 #### [facility] [address] [place], [place], [id number] GFR/1.73 sq M.predicted among non-blacks MDRD (S/P/Bld) [Vol rate/Area] 148 mL/min/{1.73_m2} Normal >60 [facility] Comment on above: Result Comment: Non- GFR Calc Performed By: #### L 500.2500, L501.4020, L100.0100, L500.3400, L300.4310, L300.3900, L503.6005, L501.9100, L501.9520 #### [facility] [address] [place], [address] Globulin (S) [Mass/Vol] 4.5 g/dL High 2.2-4.2 [facility] Comment on above: Performed By: #### L 500.2500, L501.4020, L100.0100, L500.3400, L300.4310, L300.3900, L503.6005, L501.9100, L501.9520 #### [facility] [address] [place], [address] Glucose [Mass/Vol] 102 mg/dL Normal 74-106 [facility] Comment on above: Result Comment: Fast ing Glucose result from 100 to 125 mg/dL suggests IMPAIRED HOMEOSTASIS per A.D.A. criteria. Performed By: #### L 500.2500, L501.4020, L100.0100, L500.3400, L300.4310, L300.3900, L503.6005, L501.9100, L501.9520 #### [facility] [address] [place], [address] Potassium [Moles/Vol] 3.2 mmol/L Low 3.5-5.1 [facility] Comment on above: Performed By: #### L 500.2500, L501.4020, L100.0100, L500.3400, L300.4310, L300.3900, L503.6005, L501.9100, L501.9520 #### [facility] [address] [place], [address] Sodium [Moles/Vol] 135 mmol/L Low 136-145 [facility] Comment on above: Performed By: #### L 500.2500, L501.4020, L100.0100, L500.3400, L300.4310, L300.3900, L503.6005, L501.9100, L501.9520 #### [facility] [address] [place], [address] T PROT 7.9 g/dL Normal 6.4-8.2 [facility] Comment on above: Performed By: #### L 500.2500, L501.4020, L100.0100, L500.3400, L300.4310, L300.3900, L503.6005, L501.9100, L501.9520 #### [facility] [address] [place], [address] Urea nitrogen [Mass/Vol] 10 mg/dL Normal 7-18 [facility] Comment on above: Performed By: #### L 500.2500, L501.4020, L100.0100, L500.3400, L300.4310, L300.3900, L503.6005, L501.9100, L501.9520 #### [facility] [address] [place], [address] Emergency Department Summary on 03-31-2024 Emergency Department Summary [facility] Medical Records Department [address] [place] [address] Emergency Department Summary 03/31/24 MR#: [id number] Acct: [id number] Name: ANA WHITESIDE Rep #: [id number] : 2000 23 From: Khai James MD PCP: Dr. Leigh Ann Ventura MD Status:REG ER Location: ED HPI History of Present Illness Chief Complaint: Substance Abuse Informant: patient Onset/Context/Timing Onset: Month(s) Context: Gradual Onset Timing: Continuous Current Severity: Mild Maximum Severity: Mild Narrative Narrative: 23-year-old female states she is requesting detox for fentanyl abuse. States she snorts it. Denies any IV drug use. Denies any recent illness. States she is never gone through detox before. Last use was about 5 to 6 hours ago. Prior similar symptoms: Yes Recent Illness/Hospitalizati on: No PFSH PFSH Allergy/AdvReac Type Severity Reaction Status Date / Time No Known Allergies Allergy Verified 01/09/24 13:17 Surgical History History of appendectomy Social History Smoking Status: Former smoker ROS ROS ED ROS Narrative Denies recent illness. Constitutional Constitutional ED: Denies fever(s) Eyes Eyes: Denies blurry vision ENT ENT ED: Denies ear pain Cardiovascular Cardiovascular: Denies chest pain Respiratory/Chest Respiratory/Chest: Denies cough or dyspnea Gastrointestinal Gastrointestinal: Denies abdominal pain Genitourinary Genitourinary ED: Denies dysuria Musculoskeletal Musculoskeletal: Denies arthralgias Integumentary Denies abscess Neurologic Neurologic: Denies headache(s) Psychiatric Psychiatric: Denies anxiety or depression Endocrine Endocrinology: Denies cold intolerance Hematologic/Lymphatic Hematologic/Lymphatic : Denies easy bleeding Allergic/Immunologic Allergic/Immunologic ED: Denies mouth swelling EXAM Physical Exam Narrative Exam Narrative: There are few in no acute distress signs stable afebrile. H EENT exam unremarkable. Mytrex murmurs. Neck nontender. She does have anterior posterior cervical lymphadenopathy. States recently was diagnosed with mono several weeks ago. Lungs clear to auscultation bilaterally. Heart regular rhythm no murmur. Abdomen soft, nontender, nondistended normal bowel sounds no peritoneal signs. Moving all 4 extremities. Nontender no edema. Neurologically she is awake alert no focal motor deficits. Const Vital Signs: 03/31/24 12:06 Temperature 96.5 F L Temperature Source Temporal Pulse Rate 68 Respiratory Rate 19 H Blood Pressure 124/78 H Blood Pressure Mean 93 Pulse Ox 100 Oxygen Delivery Method Room Air Positive well nourished and well developed; Negative for obese, cachectic, contractures or unkempt General Appearance ED: well developed and NAD; Negative for unkempt, cachectic, contractures or pallor Nutritional Appearance: Negative for cachectic or obese HEENT Reports moist mucous membranes atraumatic; Negative for trauma or tenderness Eyes PERRL and EOMs intact bilaterally Neck No no lymphadenopathy, supple and no JVD Neck Narrative: Anterior and posterior cervical lymphadenopathy. Recent history of mono. Lymph Lymphatic: lymphadenopathy; Negative for no lymphadenopathy noted Chest Wall inspection of chest normal and palpation of chest normal Resp normal respiratory effort and clear to auscultation bilaterally Auscultation: Negative for rales, rhonchi or wheezes Cardio regular rate, regular rhythm, S1 normal heart sound, S2 normal heart sound and no murmurs Rate: Negative for bradycardia or tachycardic Rhythm: Negative for abnormal rhythm Bruits: Negative for other GI soft to palpation, non-tender, non-distended and no masses Inspection: Negative for abdominal distention Palpation: Negative for tender, guarding or mass Back/Spine no CVA tenderness Extremity General Extremety ED: Negative for edema or tenderness General Extremity: Negative for edema Neuro oriented x3 and CN's II-XII intact bilaterally Sensorium / Orientation: alert, oriented to person, oriented to place and oriented to time; Negative for confused, lethargic or stuporous Speech: speech normal Motor Exam: strength 5/5 throughout Psych mental status grossly normal and thought process normal Appearance: Negative for unkempt Attitude: No belligerent, No agitated, No aggressive and No hostile Mood Affect: Negative for depressed, anxious or tearful Skin General Skin Exam: Negative for jaundice or pallor Lesions: no lesions Rashes: no rashes MDM MDM MDM Narrative Medical decision making narrative: 23-year-old female requesting detox for fentanyl abuse by snorting it. Screening labs being obtained. Hospitalist on page for ad (more content not included)... Normal [facility] H AND P Exam - Hospitaliston 03-31-2024 H&P Exam - Hospitalist [facility] Medical Records Department [address] [place] [address] H P Exam - Hospitalist 03/31/24 1334 MR#: [id number] Acct: [id number] Name: ANA WHITESIDE Rep #: [id number] : 2000 23 From: Rony Bland DO PCP: Dr. Leigh Ann Ventura MD Status:REG ER Location: ED HPI - General General Date of Admission: 03/31/24 Date of Service: 03/31/24 Chief Complaint: Requesting services for opioid detox HPI Narrative ANA WHITESIDE, is a 23 F who presents to the emergency room at [facility] with request of services for detox from fentanyl. Patient snorts fentanyl, she has never been through detox program before. Patient does not abuse any other drugs, she has no chronic medical problems. Patient states she last used fentanyl today approximately 5 hours ago, she is having some muscle cramps and nausea at this time and feels nervous. Labs obtained in the ER included CBC which was unremarkable, at the time of this dictation, chemistry profile was pending, toxicology was also pending. Patient will be admitted to [place] [address], orders were entered using the opiate detox order set, she will be seen by addiction clinical social work therapist. [facility] Allergy/AdvReac Type Severity Reaction Status Date / Time No Known Allergies Allergy Verified 01/09/24 13:17 Surgical History History of appendectomy Social History Smoking Status: Former smoker ROS Constitutional Constitutional: Denies anorexia, change in weight, chills, fatigue, fever(s), night sweats or weakness Eyes Eyes: Denies blurry vision, change in vision, discharge from eye(s) or eye pain Cardiovascular Cardiovascular: Denies chest pain, claudication, edema or palpitations Respiratory/Chest Respiratory/Chest: Denies cough, hemoptysis, shortness of breath at rest or shortness of breath with exertion Gastrointestinal Gastrointestinal: Denies abdominal pain, constipation, diarrhea, hematemesis, hematochezia, melena, nausea or vomiting Genitourinary Genitourinary: Denies dysuria, hematuria, urinary frequency, urinary hesitancy, urinary incontinence or urinary urgency Musculoskeletal Musculoskeletal: Reports myalgias; Denies back pain, joint pain, joint stiffness, joint swelling or neck pain Neurologic Neurologic: Denies abnormal gait, abnormal speech, confusion, dizziness, focal weakness, headache(s), loss of vision, numbness, other visual disturbances, paresthesias, syncope or tingling Psychiatric Psychiatric: Denies anxiety, cognitive impairment, depression, irritability, mood swings or suicidal ideation Endocrine Endocrinology: Denies change in body appearance, cold intolerance, excessive sweating, heat intolerance, polydipsia or polyuria Hematologic/Lymphatic Hematologic/Lymphatic : Denies none, anemia, easy bleeding, easy bruising or lymphadenopathy Allergic/Immunologic Allergic/Immunologic: Denies rhinitis, urticaria, eczemia or asthma Vital Signs Vital Signs Vital Signs: 03/31/24 12:06 Temperature 96.5 F L Temperature Source Temporal Pulse Rate 68 Respiratory Rate 19 H Blood Pressure 124/78 H Blood Pressure Mean 93 Pulse Ox 100 Oxygen Delivery Method Room Air Weight Weight: 43.772 kg Body Mass Index (BMI) 16.5 Physical Exam Const alert, oriented x3, no apparent distress, average body habitus and healthy appearing General Appearance: cooperative, well kempt and well developed Orientation / Consciousness: awake, oriented to person, oriented to place and oriented to time HEENT normocephalic, head/scalp atraumatic, hearing grossly normal bilaterally and moist oral mucous membranes Eyes PERRL, EOMs intact bilaterally and conjunctivae normal Neck supple, no JVD, thyroid normal and no carotid bruits General: trachea midline Resp normal respiratory effort, no retractions, no use of accessory muscles and clear to auscultation bilaterally Auscultation: Negative for rales, rhonchi or wheezes Cardio regular rate, regular rhythm, S1 normal heart sound, S2 normal heart sound, no murmurs, no rub and no gallops GI normal to inspection, nondistended, normoactive bowel sounds, soft to palpation, non-tender and non- distended Extremity no clubbing, cyanosis or edema Skin no rashes or lesions noted General Skin Exam: no breakdown Neuro oriented x3, CN's II-XII intact bilaterally, moves all extremities, no focal motor deficits and no sensory deficits noted Sensorium / Orientation: awake and alert Speech: speech normal Psych affect normal Results Lab / Micro Data 03/31/24 13:21 03/31/24 13:21 Labs: Laboratory Results - last 24 hr 03/31/24 13:21: WBC 9.4, RBC 4.29, Hgb 12.7, Hct 38.0, MCV 88.6, MCH 29.6, MCH (more content not included)... Normal [facility] ,Serum,hCG Quali.on 03-31-2024 HCG, SERUM QUAL Negative Normal [facility] Comment on above: Performed By: #### L 500.2500, L501.4020, L100.0100, L500.3400, L300.4310, L300.3900, L503.6005, L501.9100, L501.9520 #### [facility] [address] [place], [address] Urine Drug Screen (VISTA)on 03-31-2024 AMPHETAMINES Negative Normal <1000 ng/mL [facility] Comment on above: Order Comment: FENTA NYL Performed By: #### L 505.5000 #### [facility] [address] [place], [address] BARBITIURATES Negative Normal < 200 ng/mL [facility] Comment on above: Order Comment: FENTA NYL Performed By: #### L 505.5000 #### [facility] [address] [facility] [address] BENZODIAZIPINE Negative Normal < 200 ng/mL [facility] Comment on above: Order Comment: FENTA NYL Performed By: #### L 505.5000 #### [facility] [address] [place], [address] COCAINE Negative Normal < 300 ng/mL [facility] Comment on above: Order Comment: FENTA NYL Performed By: #### L 505.5000 #### [facility] [address] [facility] [address] ECSTACY Negative Normal < 500 ng/mL [facility] Comment on above: Order Comment: FENTA NYL Performed By: #### L 505.5000 #### [facility] [address] [place], [address] METHADONE Negative Normal < 300 ng/mL [facility] Comment on above: Order Comment: FENTA NYL Performed By: #### L 505.5000 #### [facility] [address] [place], [address] OPIATES Negative Normal < 300 ng/mL [facility] Comment on above: Order Comment: FENTA NYL Performed By: #### L 505.5000 #### [facility] [address] [place], [address] PCP Negative Normal < 25 ng/mL [facility] Comment on above: Order Comment: FENTA NYL Performed By: #### L 505.5000 #### [facility] [address] [place], [place], [address] THC Positive Abnormal < 50 ng/mL [facility] Comment on above: Order Comment: FENTA NYL Performed By: #### L 505.5000 #### [facility] [address] [place], [place], [address] VISTA UDS PH 6 Normal [facility] Comment on above: Order Comment: FENTA NYL Performed By: #### L 505.5000 #### [facility] [address] [place], [place], [id number] CNOVon 03-26-2024 CNOV Office Visit ([facility] ) ANA WHITESIDE ([id number]) 1 F Date Time Provider Department 03/26/24 5:45 PM TOM BOWEN [facility] During your visit today, we recorded the following information about you: Temperature Pulse Respiration Blood pressure 98.6 degrees 71/minute 18/minute 109/73 Weight Last Period 47 kg 03/29/19 Tom Bowen MD 03/26/2024 6:09 PM Signed Patient presents with: Sore Throat: SOB, throat swelling, wheeze, x 2 weeks HPI: Feeling sick for 2 weeks with sore throat. Positive symptoms: Sore throat, white on tonsils, Fever for 2 days last week, Chills nightly, Fatigue, vomiting for 3 days, boyfriend noted stopping breathing during sleep this week, throat swelling sensation Negative symptoms: Cough, Chest tightness, Nasal Congestion, Rhinorrhea, Diarrhea, OTC: Nyquil, Dayquil, Ibuprofen, salt water gargle MEDICATIONS: Current Outpatient Medications Medication Sig albuterol HFA (PROVENTIL HFA, VENTOLIN HFA) 90 mcg/actuation inhaler Inhale 2 Puffs as instructed every 4 hours as needed for wheezing/shortness of breath. (Patient not taking: Reported on 03/26/2024) fluticasone (FLONASE) 50 mcg/actuation nasal spray Use 2 Sprays in each nostril once daily. Rinse mouth after use. FLUoxetine (PROZAC) 20 mg capsule Take 1 capsule by mouth once daily. L. itgnjudna-G-vatg cit-yeast ([employer] IMMUNE DEFENSE) 2.5 billion cell-20 mg-3 mg cap Take 1 capsule by mouth once daily. No current facility-administered medications for this visit. ALLERGIES: ALLERGIES No Known Allergies VITALS: BP 109/73 Pulse 71 Temp 37 ?C (98.6 ?F) Resp 18 Wt 47 kg (103 lb 9.9 oz) LMP 03/29/2019 SpO2 100% BMI 17.79 kg/m? PHYSICAL EXAM: GEN: mildly ill appearing, pleasant, alert HEENT: PERRL, EOMI, conjunctiva clear Ears: canals clear. TMs without erythema, bulge, or effusion Sinuses: non-tender frontal sinus, non-tender maxillary sinuses Throat: moist mucous membranes; tonsillar erythema, 3+/4 edema, and exudate Neck: supple, no thyromegaly, large anterior lymphadenopathy HEART: regular rate and rhythm, no murmurs LUNGS: clear to auscultation, no wheezes or crackles, no increased WOB ASSESSMENT/PLAN: 1. Sore throat - ICD9: 462, ICD10: J02.9 (primary diagnosis) 2. Tonsillitis - ICD9: 463, ICD10: J03.90 3. Infectious mononucleosis-like syndrome - ICD9: 075, ICD10: B27.80 - STREP A MOLECULAR (POC) - negative. Probable mononucleosis. Steroid to reduce swelling because of intermittent difficulty breathing and swallowing - PREDNISONE 10 MG TABLET [place] discussed. [place] is viral illness without curative treatment. Treatment is supportive care with rest, adequate hydration, and symptom relief. Symptoms may last for several weeks. Testing for mono is not sensitive early in the illness. There is potential for liver and spleen enlargement which poses a risk for rupture with internal bleeding. Contact activity restriction is appropriate for known mono. She declines mononucleosis blood test; lab is not available tonight. Advised to proceed to the emergency room with increasing fevers or difficulty breathing and swallowing to further assess for tonsillar abscess. Tom Bowen MD Referring Provider: SELF [200] Allergies As of Date: 03/26/2024 (No Known Allergies) Date Reviewed: 03/26/2024 Reviewed by: Rula Lopez LPN - Fully Assessed Reason for Visit: Sore Throat [200] Cmt: SOB, throat swelling, wheeze, x 2 weeks Primary Visit Diagnosis:Sore throat [J02.9] Other Visit Diagnoses:Tonsillitis [J03.90] Infectious mononucleosis-like syndrome [B27.80] Order(s):STREP A MOLECULAR (POC) [5891099] Order #: [id number]. #:[id number] predniSONE (DELTASONE) 10 mg tabletTake 5 tablets by mouth once daily for 1 day, THEN 4 tablets once daily for 1 day, THEN 3 tablets once daily for 1 day, THEN 2 tablets once daily for 1 day, THEN 1 tablet once daily for 1 day.Disp: 15 tabletRfl: 0 Prescriptions as of 03/26/2024 - predniSONE (DELTASONE) 10 mg tablet Take 5 tablets by mouth once daily for 1 day, THEN 4 tablets once daily for 1 day, THEN 3 tablets once daily for 1 day, THEN 2 tablets once daily for 1 day, THEN 1 tablet once daily for 1 day. - albuterol HFA (PROVENTIL HFA, VENTOLIN HFA) 90 mcg/actuation inhaler Inhale 2 Puffs as instructed every 4 hours as needed for wheezing/shortness of breath. - fluticasone (FLONASE) 50 mcg/actuation nasal spray Use 2 Sprays in each nostril once daily. Rinse mouth after use. - FLUoxetine (PROZAC) 20 mg capsule Take 1 capsule by mouth once daily. - L. rpyevlqml-E-ppwr cit-yeast (CULTURELLE IMMUNE DEFENSE) 2.5 billion cell-20 mg-3 mg cap Take 1 capsule by mouth once daily. Problem List As Of Date 03/26/2024 Noted Resolved Chronic insomnia [F51.04] 04/02/2019 Blurred vision [H53.8] 04/02/2019 Anxiety with de (more content not included)... Normal [facility] STREP A MOLECULAR (POC)on Procedural Control Valid [facility] Strep A (POCT) Negative Negative [facility] Emergency Department Summary on 01-09-2024 Emergency Department Summary [facility] Medical Records Department [address] [place] [address] Emergency Department Summary 01/09/24 MR#: [id number] Acct: [id number] Name: ANA WHITESIDE Rep #: [id number] : 2000 23 From: Pavel Marte DO PCP: Dr. Leigh Ann Ventura MD Status:DEP ER Location: ED HPI History of Present Illness Chief Complaint: Ear Problem Narrative Narrative: Patient is a 23-year-old female with no significant medical history presents to the emergency department for concern of infection to the right earlobe. Patient states at the end of November, she had both of her ears pierced. Patient does have 2 piercings to the right lower lobe. Patient noticed some redness over the last 3 to 4 days, is getting more painful and swollen she is here for evaluation. She denies any drainage, nausea or vomiting. PFSH PFS Home Medications ???Medication ???Instructions ???Recorded ???Last Taken ???Type hydrocodone-acetamino phen 5-325mg 1 tab PO Q6H PRN PRN Pain 3 days 12/27/22 Unknown Rx 5mg-325mg #12 TABLETS lidocaine-aloe vera 0.5 % topical 1 applic topical TID PRN Pain/burn 12/27/22 Unknown Rx gel #227 grams silver sulfadiazine 1 % topical 1 applic topical DAILY 7 days #50 12/27/22 Unknown Rx cream (Silvadene) grams cephalexin 500 mg capsule 500 mg PO Q6 7 days #28 CAPSULES 01/09/24 Unknown Rx Allergy/AdvReac Type Severity Reaction Status Date / Time No Known Allergies Allergy Verified 01/09/24 13:17 Surgical History (Updated 12/27/22 @ 03:02 by Florentino Crespo) History of appendectomy Social History Smoking Status: Current some day smoker tobacco type: cigarettes ROS ROS ED ROS Narrative Constitutional: Negative for fever, chills, weight loss, weakness Eyes: Negative for vision loss, vision change, double vision ENT: Negative for any sore throat, congestion. Positive for right ear pain, right ear redness Cardiovascular: Negative for any chest pain, tightness, palpitations Respiratory: Negative for any cough, sputum production, hemoptysis, dyspnea, dyspnea on exertion, orthopnea Gastrointestinal: Negative for any abdominal pain, nausea, vomiting, diarrhea, constipation, blood in stool, blood in vomit : Negative for any urinary frequency, dysuria, retention, blood in urine Muscle skeletal: Negative for any neck pain, back pain Neurological: Negative for any headache, syncope, dizziness Skin: Negative for any rashes, itching, abrasions, lacerations Psychiatric: Negative for any depression, anxiety, stress, suicidal ideation, homicidal ideation Hematologic: Negative for any excessive bruising, easy bleeding EXAM Physical Exam Narrative Exam Narrative: Vital signs reviewed. HEET: Head normocephalic atraumatic, TMs clear bilaterally. Posterior pharynx is clear, moist mucous membranes. Nares clear bilaterally. Patient's right lower earlobe does show some erythema, edema. I did have the patient take out both of her earrings in that ear, there was some serosanguineous drainage from one of the holes. There is no abscess formation. Patient does have some discomfort on palpation. Neck: Supple with no lymphadenopathy or tenderness. No signs of meningismus. Cardiac: Regular rate and rhythm no murmurs gallops or rubs, equal peripheral pulses bilaterally. Respiratory: Lungs clear to auscultation bilaterally. No chest tenderness. Abdomen: Soft, nontender, nondistended. No abdominal bruit or pulsatile masses. No hepatosplenomegaly Extremities: No peripheral edema, no signs of gross trauma or deformity. Active full range of motion of all extremities. Neuro: Cranial nerves II through XII intact, no focal neurological deficits. Skin: Clean dry and intact with no rash, purpura, petechiae, vesicles or pustules. Backs/flank: No CVA tenderness, no midline spinal tenderness, no deformity. Psych: Normal mood and affect. No SI, HI or acute psychosis. Const Vital Signs: 01/09/24 13:17 01/09/24 13:17 01/09/24 13:19 Temperature 97.9 F 97.9 F 97.9 F Temperature Source Temporal Temporal Temporal Pulse Rate 62 62 60 Respiratory Rate 16 16 16 Blood Pressure 124/81 H 124/81 H 111/64 Blood Pressure Mean 95 95 79 Pulse Ox 100 100 Oxygen Delivery Method Room Air Room Air Room Air Physical Exam Const Vital Signs: 01/09/24 13:17 01/09/24 13:17 01/09/24 13:19 Temperature 97.9 F 97.9 F 97.9 F Temperature Source Temporal Temporal Temporal Pulse Rate 62 62 60 Respiratory Rate 16 16 16 Blood Pressure 124/81 H 124/81 H 111/64 Blood Pressure Mean 95 95 79 Pulse Ox 100 100 Oxygen Delivery Method Room Air Room Air Room Air [facility] Treatment and Re-Evaluation :: Differential diagnosis includes however is not limited to: Fungal disease, foreign body, cellulitis, abscess formatio (more content not included)... Normal [facility] CNOVon 07-14-2023 CN Office Visit (UCWSTR ) ANA WHITESIDE ([id number]) 1 F Date Time Provider Department 07/14/23 10:00 AM MALENA PHILIPPE [facility] During your visit today, we recorded the following information about you: Temperature Pulse Respiration Blood pressure 97 degrees 66/minute 19/minute 98/60 Weight 49 kg Malena Philippe APRN.CNP 07/14/2023 10:42 AM Signed Subjective HPI Nontoxic-appearing female presents urgent care chief complaint cough chest congestion wheezing body aches chills. Most prominent symptom today is cough nasal congestion wheezing. States wheezing with coughing only. History of bronchitis this feels similar. Has not used any OTC medications. No known sick contacts. 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 Past medical history prescription medication use and allergies reviewed. Denies chance of . Is not breast-feeding. .Patient presents with: Cough: Chest congestion, wheezing, body aches x 5 days PAST MEDICAL HISTORY Diagnosis Date Pneumonia 2010 PAST SURGICAL HISTORY Procedure Laterality Date NONE ALLERGIES Patient has no known allergies. MEDICATIONS albuterol HFA (PROVENTIL HFA, VENTOLIN HFA) 90 mcg/actuation inhaler Inhale 2 Puffs as instructed every 4 hours as needed for wheezing/shortness of breath. fluticasone (FLONASE) 50 mcg/actuation nasal spray Use 2 Sprays in each nostril once daily. Rinse mouth after use. (Patient not taking: Reported on 09/10/2022) FLUoxetine (PROZAC) 20 mg capsule Take 1 capsule by mouth once daily. (Patient not taking: Reported on 06/13/2021 ) L. onkztaoja-T-btkn cit-yeast ([employer] IMMUNE DEFENSE) 2.5 billion cell-20 mg-3 mg cap Take 1 capsule by mouth once daily. (Patient not taking: Reported on 06/13/2021 ) FAMILY HISTORY Problem Relation Age of Onset Heart Maternal Grandfather 59 [address] Social History Tobacco Use Smoking status: Never Smokeless tobacco: Never Substance Use Topics Alcohol use: No Drug use: No BP 98/60 Pulse 66 Temp 36.1 ?C (97 ?F) Resp 19 Wt 49 kg (108 lb) LMP 03/29/2019 SpO2 97% BMI 18.54 kg/m? Review of Systems Constitutional: Positive for malaise/fatigue. Negative for chills and fever. HENT: Positive for congestion and sore throat. Negative for ear discharge, ear pain and sinus pain. Eyes: Negative for blurred vision, pain, discharge and redness. Respiratory: Positive for cough and wheezing. Negative for hemoptysis, sputum production, shortness of breath and stridor. Cardiovascular: Negative for chest pain. Gastrointestinal: Negative for abdominal pain, diarrhea, nausea and vomiting. Musculoskeletal: Positive for myalgias. Skin: Negative for itching and rash. Neurological: Negative for dizziness and headaches. Objective Physical Exam Constitutional: General: She is not in acute distress. Appearance: She is not diaphoretic. HENT: Head: Normocephalic. Jaw: No trismus, tenderness, swelling or pain on movement. Right Ear: Tympanic membrane, ear canal and external ear normal. Left Ear: Tympanic membrane, ear canal and external ear normal. Nose: Congestion present. Mouth/Throat: Mouth: Mucous membranes are moist. Pharynx: Oropharynx is clear. Uvula midline. No pharyngeal swelling, oropharyngeal exudate, posterior oropharyngeal erythema or uvula swelling. Eyes: Conjunctiva/sclera: Conjunctivae normal. Pupils: Pupils are equal, round, and reactive to light. Cardiovascular: Rate and Rhythm: Normal rate and regular rhythm. Heart sounds: Normal heart sounds. Pulmonary: Effort: Pulmonary effort is normal. No tachypnea, accessory muscle usage or respiratory distress. Breath sounds: No stridor. Wheezing present. No rhonchi or rales. Abdominal: General: There is no distension. Palpations: Abdomen is soft. Tenderness: There is no abdominal tenderness. There is no guarding or rebound. Musculoskeletal: Cervical back: Normal range of motion and neck supple. No edema, erythema, rigidity or tenderness. No pain with movement. Normal range of motion. Lymphadenopathy: Cervical: No cervical adenopathy. Skin: General: Skin is warm and dry. Neurological: Mental Status: She is alert and oriented to person, place, and time. ASSESSMENT/PLAN: 1. Viral bronchitis - ICD9: 466.0, ICD10: J20.8 Bilateral wheezing noted on auscultation. Rescue inhaler has helped. Diagnosed with viral bronchitis. We discussed chest x-ray. Patient declined x-ray at this time. Treat as viral etiology. No evidence of bacterial infection noted. Patient was educated on supportive therapies. Patient will follow up with primary care provider as needed. Patient was instructed to immediately proceed to emergency (more content not included)... Normal [facility] Influenza virus A and B RNA and SARS-CoV-2 (COVID-19) N gene panel YG+probe (Resp)on 09-11-2022 FLUAV RNA YG+probe Ql (Unsp spec) Negative Negative for Influenza A by RT-PCR [facility] FLUBV RNA YG+probe Ql (Unsp spec) Negative Negative for Influenza B by RT-PCR [facility] SARS-CoV-2 (COVID-19) RNA YG+probe Ql (Resp) SARS-CoV-2 (Agent of COVID-19) Not Detected by RT-PCR or equivalent method. Not Detected [facility] UA DIP, URINE (POC)on 2022 BILIRUBIN UA (POCT) Negative Negative [facility] CLARITY UA (POCT) Clear [facility] COLOR UA (POCT) Yellow [facility] GLUCOSE UA (POCT) Negative Negative mg/dL [facility] HEMOGLOBIN/BLOOD UA (POCT) Negative Negative [facility] KETONE UA (POCT) Trace Negative mg/dL [facility] LEUKOCYTES UA (POCT) Negative Negative [facility] NITRITE UA (POCT) Negative Negative 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 Rinse mouth after use. - FLUoxetine (PROZAC) 20 mg capsule Take 1 capsule by mouth once daily. - L. efbppfcbz-X-ksri cit-yeast (C[employer]URELLE IMMUNE DEFENSE) 2.5 billion cell-20 mg-3 mg cap Take 1 capsule by mouth once daily. Letter Text Normal 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 Rinse mouth after use. - FLUoxetine (PROZAC) 20 mg capsule Take 1 capsule by mouth once daily. - L. gkayoqoeh-S-xrpm cit-yeast (CULTURELLE IMMUNE DEFENSE) 2.5 billion cell-20 mg-3 mg cap Take 1 capsule by mouth once daily. Normal 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 Rinse mouth after use. - FLUoxetine (PROZAC) 20 mg capsule Take 1 capsule by mouth once daily. - L. odxtdujsj-W-adhy cit-yeast (CULTURELLE IMMUNE DEFENSE) 2.5 billion cell-20 mg-3 mg cap Take 1 capsule by mouth once daily. Normal 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 Rinse mouth after use. - FLUoxetine (PROZAC) 20 mg capsule Take 1 capsule by mouth once daily. - L. nczcffrdn-L-ckin cit-yeast (CULTURELLE IMMUNE DEFENSE) 2.5 billion cell-20 mg-3 mg cap Take 1 capsule by mouth once daily. Normal 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 Rinse mouth after use. - FLUoxetine (PROZAC) 20 mg capsule Take 1 capsule by mouth once daily. - L. hcbklrvoh-X-sgej cit-yeast (CULTUREE IMMUNE DEFENSE) 2.5 billion cell-20 mg-3 mg cap Take 1 capsule by mouth once daily. Normal 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 Rinse mouth after use. - FLUoxetine (PROZAC) 20 mg capsule Take 1 capsule by mouth once daily. - L. ofdsajumh-I-jrlv cit-yeast (CULTURELLE IMMUNE DEFENSE) 2.5 billion cell-20 mg-3 mg cap Take 1 capsule by mouth once daily. Letter Text Normal [facility] Vital Signs Date Time Vital Sign Value Performing Clinician Facility 03-26-2024 17:46-0400 Body mass index (BMI) [Ratio] 17.79 kg/m2 Tom Bowen MD Work Phone: [facility] 03-26-2024 17:46-0400 Body temperature 98.6 [degF] Tom Bowen MD Work Phone: [facility] 03-26-2024 17:46-0400 Body weight 47 kg Tom Bowen MD Work Phone: [facility] 03-26-2024 17:46-0400 Diastolic blood pressure 73 mm[Hg] Tom Bowen MD Work Phone: [facility] 03-26-2024 17:46-0400 Heart rate 71 /min Tom Bowen MD Work Phone: [facility] 03-26-2024 17:46-0400 Respiratory rate 18 /min Tom Bowen MD Work Phone: [facility] 03-26-2024 17:46-0400 SaO2% (BldA) [Mass fraction] 100 % Tom Bowen MD Work Phone: [facility] 03-26-2024 17:46-0400 Systolic blood pressure 109 mm[Hg] Tom Bowen MD Work Phone: [facility] 07-14-2023 10:19-0500 Body temperature 97 [degF] Malena Pendlebury HERBARIUM CURATOR.CAPACITOR TESTER Work Phone: [facility] 07-14-2023 10:19-0500 Body weight 48.99 kg Malena Pendlebury HERBARIUM CURATOR.CAPACITOR TESTER Work Phone: [facility] 07-14-2023 10:19-0500 Diastolic blood pressure 60 mm[Hg] Malena Pendlebury HERBARIUM CURATOR.CAPACITOR TESTER Work Phone: [facility] 07-14-2023 10:19-0500 Heart rate 66 /min Malena Pendlebury HERBARIUM CURATOR.CAPACITOR TESTER Work Phone: [facility] 07-14-2023 10:19-0500 Respiratory rate 19 /min Malena Pendlebury HERBARIUM CURATOR.CAPACITOR TESTER Work Phone: [facility] 07-14-2023 10:19-0500 SaO2% (BldA) [Mass fraction] 97 % Malena Pendlejennifer HERBARIUM CURATOR.CAPACITOR TESTER Work Phone: [facility] 07-14-2023 10:19-0500 Systolic blood pressure 98 mm[Hg] Malena Pendlebury HERBARIUM CURATOR.CAPACITOR TESTER Work Phone: [facility] 12-27-2022 03:02-0400 Body height 162.56 cm [facility] 12-27-2022 03:02-0400 Body mass index (BMI) [Ratio] 19.2 kg/m2 [facility] 12-27-2022 03:02-0400 Body temperature 98.7 [degF] [facility] 12-27-2022 03:02-0400 Body weight 50.9 kg [facility] 12-27-2022 03:02-0400 Diastolic blood pressure 82 mm[Hg] [facility] 12-27-2022 03:02-0400 Heart rate 70 /min [facility] 12-27-2022 03:02-0400 Respiratory rate 16 /min [facility] 12-27-2022 03:02-0400 SaO2% (BldA) [Mass fraction] 98 % [facility] 12-27-2022 03:02-0400 Systolic blood pressure 126 mm[Hg] [facility] 09-10-2022 18:50-0500 Body temperature 98.29 [degF] [facility]IUM CURATOR.CAPACITOR TESTER Work Phone: [facility] 09-10-2022 18:50-0500 Body weight 46.81 kg Malena Pendlebury HERBARIUM CURATOR.CAPACITOR TESTER Work Phone: [facility] 09-10-2022 18:50-0500 Diastolic blood pressure 62 mm[Hg] Malena Pendlebury HERBARIUM CURATOR.CAPACITOR TESTER Work Phone: [facility] 09-10-2022 18:50-0500 Heart rate 82 /min Malena Pendlebury HERBARIUM CURATOR.CAPACITOR TESTER Work Phone: [facility] 09-10-2022 18:50-0500 Respiratory rate 16 /min Malena Pendlebury HERBARIUM CURATOR.CAPACITOR TESTER Work Phone: [facility] 09-10-2022 18:50-0500 SaO2% (BldA) [Mass fraction] 98 % Malena Pendlebury HERBARIUM CURATOR.CAPACITOR TESTER Work Phone: [facility] 09-10-2022 18:50-0500 Systolic blood pressure 106 mm[Hg] Malena Pendlebury HERBARIUM CURATOR.CAPACITOR TESTER Work Phone: [facility] 06-12-2022 10:00-0400 Diastolic blood pressure 49 mm[Hg] Eliot Verdouw OTR/L Work Phone: [facility] 06-12-2022 10:00-0400 Heart rate 67 /min Eliot Verdouw OTR/L Work Phone: [facility] 06-12-2022 10:00-0400 Systolic blood pressure 93 mm[Hg] Eliot Miguel OTR/L Work Phone: [facility] 2022 12:54-0400 Body height 162.6 cm Joycelyn Rao MD Work Phone: [facility] 2022 12:54-0400 Body weight 49.9 kg Joycelyn Rao MD Work Phone: [facility] 2022 12:54-0400 Diastolic blood pressure 56 mm[Hg] Joycelyn Rao MD Work Phone: [facility] 2022 12:54-0400 Heart rate 64 /min Joycelyn Rao MD Work Phone: [facility] 2022 12:54-0400 Systolic blood pressure 108 mm[Hg] Joycelyn Rao MD Work Phone: [facility] Encounters Encounter Date Encounter Type Care Provider Facility Start: 04-21-2024 ambulatory [place] Facility:B MD Start: 04-21-2024 End: 04-22-2024 Evaluation and management of inpatient [facility] Facility:[facility] Start: 03-31-2024 End: 03-31-2024 Evaluation and management of inpatient [facility] Facility:[facility] Start: 03-31-2024 ambulatory Rony Baldo Hamlin y:[facility] Start: 03-26-2024 End: 03-26-2024 ambulatory [facility] Facility:[facility] Start: 03-26-2024 End: 03-26-2024 Patient encounter procedure Tom Bowen MD Work Phone: [facility] Comment on above: Sore throat (Primary Dx); Tonsillitis; Infectious mononucleosis-like syndrome Start: 01-09-2024 End: 01-09-2024 Emergency department patient visit [facility] Facility:[facility] Start: 07-14-2023 End: 07-14-2023 ambulatory [facility] Facility:[facility] Start: 07-14-2023 End: 07-14-2023 Office outpatient visit 15 minutes Malena Philippe HERBARIUM CURATOR.CAPACITOR TESTER Work Phone: [facility] Comment on above: Viral bronchitis (Pr imary Dx) Start: 12-27-2022 End: 12-27-2022 Emergency department patient visit [facility]-Emergency Department Start: 09-10-2022 End: 09-10-2022 Office outpatient visit 15 minutes Malena Philippe HERBARIUM CURATOR.CAPACITOR TESTER Work Phone: [facility] Comment on above: Burning with urinati on (Primary Dx); Viral illness Start: 08-07-2022 End: 08-07-2022 ambulatory ELIOT VERDOUW Facility[facility] Start: 07-24-2022 End: 07-24-2022 ambulatory JOYCELYN RAO Facility:[facility] Start: 07-24-2022 End: 07-24-2022 ambulatory Lilliana Geil OTR/L Work Phone: [facility] Comment on above: Neuropathy of left r adial nerve (Primary Dx) Start: 07-10-2022 End: 07-10-2022 ambulatory LEIGH ANN Marielos LORENZO Facility:[facility] Start: 07-10-2022 End: 07-10-2022 ambulatory Eliot Verdouw OTR/L Work Phone: [facility] Comment on above: Neuropathy of left r adial nerve (Primary Dx) Start: 07-08-2022 Telephone encounter Joycelyn Rao MD Work Phone: Neurology Comment on above: Results Start: 06-28-2022 Orders Only Joycelyn Rao MD Work Phone: Neurology Comment on above: Neuropathy of left r adial nerve (Primary Dx) Start: 06-24-2022 End: 06-24-2022 ambulatory LEIGH ANN VENTURA Facility:[facility] Start: 06-19-2022 End: 06-19-2022 ambulatory LEIGH ANN H STRONG Facility:[facility] Start: 06-19-2022 End: 06-19-2022 ambulatory Eliot Verdouw OTR/L Work Phone: [facility] Comment on above: Neuropathy of left r adial nerve (Primary Dx) Start: 06-12-2022 End: 06-12-2022 ambulatory LEIGH ANN VENTURA [facility] Start: 06-12-2022 End: 06-12-2022 ambulatory Eliot Miguel OTR/L Work Phone: [facility] Comment on above: Radial neuropathy, l eft (Primary Dx); Neuropathy of left radial nerve Start: 2022 End: 2022 Patient encounter procedure Joycelyn Rao MD Work Phone: Neurology Comment on above: Neuropathy of left r adial nerve Procedures Date Procedure Procedure Detail Performing Clinician Start: 03-26-2024 STREP A MOLECULAR (POC) Tom Bowen MD Work Phone: Start: 09-10-2022 Urnls dip stick/tabl et rgnt auto w/o microscopy Malena Philippe HERBARIUM CURATOR.CAPACITOR TESTER Work Phone: Start: 09-10-2022 COVID WITH FLUA+B, ROUTINE Malena Philippe HERBARIUM CURATOR.CAPACITOR TESTER Work Phone: Plan of Treatment Date Care Activity Detail Author Start: 04-25-2024 Influenza vaccination Influenza Vacc ine (#1) [facility] Start: 04-25-2023 Covid-19 Vaccine ( season) Covid-19 Vaccine ( season) [facility] Start: 04-25-2023 Influenza vaccination Influenza Vacc ine (#1) [facility] Start: 04-05-2023 Urine microalbumin profile [facility] Start: 04-25-2022 Influenza vaccination INFLUENZA (#1) [facility] Start: 2021 PAP TESTING PAP TESTING [facility] Start: 2021 Screening for malign ant neoplasm of cervix Cervical Cancer Screening [facility] Start: 2018 CHLAMYDIA SCREENING (18-24) CHLAMYDIA SCREENING (18-24) [facility] Start: 2018 GC (GONORRHEA) SCREE ANGELA (18-24) GC (GONORRHEA) SCREENING (18-24) [facility] Start: 2018 HEPATITIS C SCREENING HEPATITIS C TREVON PETERS [facility] Start: 2018 Hepatitis C screening Hepatitis C Mi avis [facility] Start: 2018 HIV SCREENING HIV SCREENING [facility] Start: 2018 HIV screening HIV Screening [facility] Start: 2018 Screening for Chlamy debbie trachomatis Chlamydia Screening (18-24) [facility] Start: 2016 Meningococcal B Vacc ine: Consider Based On Risk (1 of 2 - Patient Seeks Protection) Meningococcal B Vaccine: Consider Based On Risk (1 of 2 - Patient Seeks Protection) [facility] Start: 2014 PEDS TO ADULT TRANSI TION ANNUAL ASSESSMENT PEDS TO ADULT TRANSITION ANNUAL ASSESSMENT [facility] Start: 2012 PEDS TO ADULT TRANSI TION INITIAL DISCUSSION PEDS TO ADULT TRANSITION INITIAL DISCUSSION [facility] Start: 2010 MENINGOCOCCAL B: Consider based on risk (1 of 2 - Risk Bexsero 2-dose series) MENINGOCOCCAL B: Consider based on risk (1 of 2 - Risk Bexsero 2-dose series) [facility] Start: 2000 COVID-19 VACCINE (#1) COVID-19 VACCI NE (#1) [facility] Bacteria identified in Urine by Culture URINE CULTURE Microbiology Routine Burning with urination 09/10/2022 7:57 PM EST [facility] Work Phone: End: 2023 EMG(NEURO/NI) EMG(NEURO/NI) EMG Routine Neuropathy of left radial nerve 1 Occurrences starting 2022 until [address] [facility] Work Phone: Comment on above: 1 Occurrences starti ng 2022 until 2023 End: 06-28-2023 EMG(NEURO/NI) EMG(NEURO/NI) EMG Routine Neuropathy of left radial nerve 1 Occurrences starting 06/28/2022 until 06/28/[address] [facility] Work Phone: Comment on above: 1 Occurrences starti ng 06/28/2022 until 06/28/2023 Patient Education ED First- and Second-Degree Lucas ... ED BURN Wound Check [No Infection] ED Burn, Second-Degree [facility] Work Phone: Patient referral [facility] Work Phone: [facility] Immunizations Immunization Date Immunization Notes Care Provider Canelo danielle 06-20-2016 meningococcal polysaccharide (groups A, C, Y and W-135) diphtheria toxoid conjugate vaccine (MCV4P) Joycelyn Rao MD Work Phone: [facility] 06-12-2015 influenza, live, intranasal, quadrivalent Joycelyn Rao MD Work Phone: [facility] 06-12-2015 influenza virus vacc ine, unspecified formulation Malena Philippe APRN.[facility] Work Phone: [facility] 11-11-2013 human papilloma viru s vaccine, quadrivalent Joycelyn Rao MD Work Phone: [facility] Work Phone: 06-09-2013 human papilloma viru s vaccine, quadrivalent Joycelyn Rao MD Work Phone: [facility] Work Phone: 06-09-2013 influenza virus vacc ine, live, attenuated, for intranasal use Joycelyn Rao MD Work Phone: [facility] Work Phone: 06-09-2013 varicella virus vaccine Patti Rao MD Work Phone: [facility] Work Phone: 04-05-2013 human papilloma viru s vaccine, quadrivalent Joycelyn Rao MD Work Phone: [facility] 04-05-2013 Meningococcal, MCV4, unspecified conjugate formulation(groups A, C, Y and W-135) Joycelyn Rao MD Work Phone: [facility] 04-05-2013 tetanus toxoid, redu raul diphtheria toxoid, and acellular pertussis vaccine, adsorbed Joycelyn Rao MD Work Phone: [facility] 05-01-2005 diphtheria, tetanus toxoids and acellular pertussis vaccine Joycelyn Rao MD Work Phone: [facility] Work Phone: 05-01-2005 measles, mumps and rubella virus vaccine Joycelyn Rao MD Work Phone: [facility] Work Phone: 05-01-2005 poliovirus vaccine, inactivated Joycelyn Rao MD Work Phone: [facility] Work Phone: 09-08-2001 diphtheria, tetanus toxoids and acellular pertussis vaccine Joycelyn Rao MD Work Phone: [facility] 09-08-2001 haemophilus influenz ae type b vaccine, HbOC conjugate Joycelyn Rao MD Work Phone: [facility] 06-09-2001 measles, mumps and rubella virus vaccine Joycelyn Roa MD Work Phone: [facility] 06-09-2001 pneumococcal conjuga te vaccine, 7 valent Joycelyn Rao MD Work Phone: [facility] 06-09-2001 varicella virus vaccine Patti Rao MD Work Phone: [facility] 03-09-2001 hepatitis B vaccine, pediatric or pediatric/adolescent dosage Joycelyn Rao MD Work Phone: [facility] 2000 diphtheria, tetanus toxoids and acellular pertussis vaccine Joycelyn Rao MD Work Phone: [facility] 2000 haemophilus influenz ae type b vaccine, HbOC conjugate Joycelyn Rao MD Work Phone: [facility] 2000 pneumococcal conjuga te vaccine, 7 valent Joycelyn Rao MD Work Phone: [facility] 2000 poliovirus vaccine, inactivated Joycelyn Rao MD Work Phone: [facility] 2000 diphtheria, tetanus toxoids and acellular pertussis vaccine Joycelyn Rao MD Work Phone: [facility] 2000 haemophilus influenz ae type b vaccine, HbOC conjugate Joycelyn Rao MD Work Phone: [facility] 2000 pneumococcal conjuga te vaccine, 7 valent Joycelyn Rao MD Work Phone: [facility] 2000 poliovirus vaccine, inactivated Joycelyn Rao MD Work Phone: [facility] 2000 diphtheria, tetanus toxoids and acellular pertussis vaccine Joycelyn Rao MD Work Phone: [facility] 2000 haemophilus influenz ae type b vaccine, HbOC conjugate Joycelyn Rao MD Work Phone: [facility] 2000 poliovirus vaccine, inactivated Joycelyn Rao MD Work Phone: [facility] 2000 hepatitis B vaccine, pediatric or pediatric/adolescent dosage Joycelyn Rao MD Work Phone: [facility] 2000 hepatitis B vaccine, pediatric or pediatric/adolescent dosage Joycelyn Rao MD Work Phone: [facility] Payers Date Payer Category Payer Self-pay [id number] 2014 Unknown [employer] [id number] Unknown SEL[employer] INS [facility] [id number] Unknown [id number] Unknown [id number] Unknown [id number] Unknown [id number] Unknown [id number] Social History Date Type Detail Facility [facility]: [facility] Start: 06-20-2016 Tobacco use and exposure Smokeless tobacco non-user [facility] Start: 2022 End: 03-26-2024 Alcohol intake Current non-drinker of alcohol (finding) [facility] Start: 2000 Sex Assigned At Not on file [facility] Start: 05-28-2022 End: 07-01-2022 Exposure to SARS-CoV-2 (event) Not sure [facility] Start: 12-27-2022 [facility] smoked [facility] Start: 03-04-2020 - [facility] Start: 2000 Sex Assigned At Female [facility] Start: 09-10-2022 End: 07-14-2023 History of Social function [facility] Start: 09-10-2022 End: 07-14-2023 Tobacco use panel [facility] Adult Depression Screening Assessment 2 [facility] Start: 08-24-2021 Gender identity Identifies as female gender (finding) [facility] Start: 08-24-2021 Sexual orientation Heterosexual (fin ding) [facility] NEGATED: Highlighted row [facility] Medical Equipment Procedure Code Equipment Code Equipment Origin al Text Equipment Identifier Dates Appendectomy, laparoscopic 45mm Standard Reload FDA Start: 03-04-2020 Appendectomy, laparoscopic SPRAGGER,CLIP 5MM LIGAMAX FDA Start: 03-04-2020 Mental Status Date Assessment Result Facility 12-27-2022 Cognitive function Voice/Name [facility] Work Phone: Clinical Notes 2022 to 03-26-2024 Tom Bowen MD - 03/26/2024 5:55 PM Malena Zamorano APRN.[facility] - 07/14/2023 10:21 AM ESTPatient InstructionsMalena Philippe APRN.CAPACITOR TESTER - 09/10/2022 6:59 PM ESTPatient Instructions Note Date & Type Note Facility 03-26-2024 Note HNO ID: [id number] Author: TOM BOWEN MD Service: ? Author Type: Physician Type: Progress Notes Filed: 03/26/2024 18:09 Note Text: Patient presents with: Sore Throat: SOB, throat swelling, wheeze, x 2 weeks HPI: Feeling sick for 2 weeks with sore throat. Positive symptoms: Sore throat, white on tonsils, Fever for 2 days last week, Chills nightly, Fatigue, vomiting for 3 days, boyfriend noted stopping breathing during sleep this week, throat swelling sensation Negative symptoms: Cough, Chest tightness, Nasal Congestion, Rhinorrhea, Diarrhea, OTC: Nyquil, Dayquil, Ibuprofen, salt water gargle MEDICATIONS: Current Outpatient Medications Medication Sig albuterol HFA (PROVENTIL HFA, VENTOLIN HFA) 90 mcg/actuation inhaler Inhale 2 Puffs as instructed every 4 hours as needed for wheezing/shortness of breath. (Patient not taking: Reported on 03/26/2024) fluticasone (FLONASE) 50 mcg/actuation nasal spray Use 2 Sprays in each nostril once daily. Rinse mouth after use. FLUoxetine (PROZAC) 20 mg capsule Take 1 capsule by mouth once daily. L. enqkkaebr-N-vdpt cit-yeast ([employer]) 2.5 billion cell-20 mg-3 mg cap Take 1 capsule by mouth once daily. No current facility-administered medications for this visit. ALLERGIES: ALLERGIES No Known Allergies VITALS: BP 109/73 Pulse 71 Temp 37 ?C (98.6 ?F) Resp 18 Wt 47 kg (103 lb 9.9 oz) LMP 03/29/2019 SpO2 100% BMI 17.79 kg/m? PHYSICAL EXAM: GEN: mildly ill appearing, pleasant, alert HEENT: PERRL, EOMI, conjunctiva clear Ears: canals clear. TMs without erythema, bulge, or effusion Sinuses: non-tender frontal sinus, non-tender maxillary sinuses Throat: moist mucous membranes; tonsillar erythema, 3+/4 edema, and exudate Neck: supple, no thyromegaly, large anterior lymphadenopathy HEART: regular rate and rhythm, no murmurs LUNGS: clear to auscultation, no wheezes or crackles, no increased WOB ASSESSMENT/PLAN: 1. Sore throat - ICD9: 462, ICD10: J02.9 (primary diagnosis) 2. Tonsillitis - ICD9: 463, ICD10: J03.90 3. Infectious mononucleosis-like syndrome - ICD9: 075, ICD10: B27.80 - STREP A MOLECULAR (POC) - negative. Probable mononucleosis. Steroid to reduce swelling because of intermittent difficulty breathing and swallowing - PREDNISONE 10 MG TABLET [place] discussed. [place] is viral illness without curative treatment. Treatment is supportive care with rest, adequate hydration, and symptom relief. Symptoms may last for several weeks. Testing for mono is not sensitive early in the illness. There is potential for liver and spleen enlargement which poses a risk for rupture with internal bleeding. Contact activity restriction is appropriate for known mono. She declines mononucleosis blood test; lab is not available tonight. Advised to proceed to the emergency room with increasing fevers or difficulty breathing and swallowing to further assess for tonsillar abscess. Tom Bowen MD [facility] 03-26-2024 History of Presen t illness Narrative Patient presents with: Sore Throat: SOB, throat swelling, wheeze, x 2 weeks HPI: Feeling sick for 2 weeks with sore throat. Positive symptoms: Sore throat, white on tonsils, Fever for 2 days last week, Chills nightly, Fatigue, vomiting for 3 days, boyfriend noted stopping breathing during sleep this week, throat swelling sensation Negative symptoms: Cough, Chest tightness, Nasal Congestion, Rhinorrhea, Diarrhea, OTC: Nyquil, Dayquil, Ibuprofen, salt water gargle MEDICATIONS: Current Outpatient Medications Medication Sig albuterol HFA (PROVENTIL HFA, VENTOLIN HFA) 90 mcg/actuation inhaler Inhale 2 Puffs as instructed every 4 hours as needed for wheezing/shortness of breath. (Patient not taking: Reported on 03/26/2024) fluticasone (FLONASE) 50 mcg/actuation nasal spray Use 2 Sprays in each nostril once daily. Rinse mouth after use. FLUoxetine (PROZAC) 20 mg capsule Take 1 capsule by mouth once daily. L. bgsouhaup-S-hkne cit-yeast ([employer]) 2.5 billion cell-20 mg-3 mg cap Take 1 capsule by mouth once daily. No current facility-administered medications for this visit. ALLERGIES: ALLERGIES No Known Allergies VITALS: BP 109/73 Pulse 71 Temp 37 C (98.6 F) Resp 18 Wt 47 kg (103 lb 9.9 oz) LMP 03/29/2019 SpO2 100% BMI 17.79 kg/m PHYSICAL EXAM: GEN: mildly ill appearing, pleasant, alert HEENT: PERRL, EOMI, conjunctiva clear Ears: canals clear. TMs without erythema, bulge, or effusion Sinuses: non-tender frontal sinus, non-tender maxillary sinuses Throat: moist mucous membranes; tonsillar erythema, 3+/4 edema, and exudate Neck: supple, no thyromegaly, large anterior lymphadenopathy HEART: regular rate and rhythm, no murmurs LUNGS: clear to auscultation, no wheezes or crackles, no increased WOB ASSESSMENT/PLAN: 1. Sore throat - ICD9: 462, ICD10: J02.9 (primary diagnosis) 2. Tonsillitis - ICD9: 463, ICD10: J03.90 3. Infectious mononucleosis-like syndrome - ICD9: 075, ICD10: B27.80 - STREP A MOLECULAR (POC) - negative. Probable mononucleosis. Steroid to reduce swelling because of intermittent difficulty breathing and swallowing - PREDNISONE 10 MG TABLET [place] discussed. [place] is viral illness without curative treatment. Treatment is supportive care with rest, adequate hydration, and symptom relief. Symptoms may last for several weeks. Testing for mono is not sensitive early in the illness. There is potential for liver and spleen enlargement which poses a risk for rupture with internal bleeding. Contact activity restriction is appropriate for known mono. She declines mononucleosis blood test; lab is not available tonight. Advised to proceed to the emergency room with increasing fevers or difficulty breathing and swallowing to further assess for tonsillar abscess. Tom Bowen MD documented in this encounter [facility] 07-14-2023 Note HNO ID: [id number] Author: Malena Philippe APRN.CAPACITOR TESTER Service: ? Author Type: Nurse Practitioner Type: Progress Notes Filed: 07/14/2023 10:42 AM Note Text: Subjective HPI Nontoxic-appearing female presents urgent care chief complaint cough chest congestion wheezing body aches chills. Most prominent symptom today is cough nasal congestion wheezing. States wheezing with coughing only. History of bronchitis this feels similar. Has not used any OTC medications. No known sick contacts. 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 Past medical history prescription medication use and allergies reviewed. Denies chance of . Is not breast-feeding. .Patient presents with: Cough: Chest congestion, wheezing, body aches x 5 days PAST MEDICAL HISTORY Diagnosis Date Pneumonia 2010 PAST SURGICAL HISTORY Procedure Laterality Date NONE ALLERGIES Patient has no known allergies. MEDICATIONS albuterol HFA (PROVENTIL HFA, VENTOLIN HFA) 90 mcg/actuation inhaler Inhale 2 Puffs as instructed every 4 hours as needed for wheezing/shortness of breath. fluticasone (FLONASE) 50 mcg/actuation nasal spray Use 2 Sprays in each nostril once daily. Rinse mouth after use. (Patient not taking: Reported on 09/10/2022) FLUoxetine (PROZAC) 20 mg capsule Take 1 capsule by mouth once daily. (Patient not taking: Reported on 06/13/2021 ) L. ljpzzldwx-H-ecqn cit-yeast ([facility] [employer]) 2.5 billion cell-20 mg-3 mg cap Take 1 capsule by mouth once daily. (Patient not taking: Reported on 06/13/2021 ) FAMILY HISTORY Problem Relation Age of Onset Heart Maternal Grandfather 59 [address] Social History Tobacco Use Smoking status: Never Smokeless tobacco: Never Substance Use Topics Alcohol use: No Drug use: No BP 98/60 Pulse 66 Temp 36.1 ?C (97 ?F) Resp 19 Wt 49 kg (108 lb) LMP 03/29/2019 SpO2 97% BMI 18.54 kg/m? Review of Systems Constitutional: Positive for malaise/fatigue. Negative for chills and fever. HENT: Positive for congestion and sore throat. Negative for ear discharge, ear pain and sinus pain. Eyes: Negative for blurred vision, pain, discharge and redness. Respiratory: Positive for cough and wheezing. Negative for hemoptysis, sputum production, shortness of breath and stridor. Cardiovascular: Negative for chest pain. Gastrointestinal: Negative for abdominal pain, diarrhea, nausea and vomiting. Musculoskeletal: Positive for myalgias. Skin: Negative for itching and rash. Neurological: Negative for dizziness and headaches. Objective Physical Exam Constitutional: General: She is not in acute distress. Appearance: She is not diaphoretic. HENT: Head: Normocephalic. Jaw: No trismus, tenderness, swelling or pain on movement. Right Ear: Tympanic membrane, ear canal and external ear normal. Left Ear: Tympanic membrane, ear canal and external ear normal. Nose: Congestion present. Mouth/Throat: Mouth: Mucous membranes are moist. Pharynx: Oropharynx is clear. Uvula midline. No pharyngeal swelling, oropharyngeal exudate, posterior oropharyngeal erythema or uvula swelling. Eyes: Conjunctiva/sclera: Conjunctivae normal. Pupils: Pupils are equal, round, and reactive to light. Cardiovascular: Rate and Rhythm: Normal rate and regular rhythm. Heart sounds: Normal heart sounds. Pulmonary: Effort: Pulmonary effort is normal. No tachypnea, accessory muscle usage or respiratory distress. Breath sounds: No stridor. Wheezing present. No rhonchi or rales. Abdominal: General: There is no distension. Palpations: Abdomen is soft. Tenderness: There is no abdominal tenderness. There is no guarding or rebound. Musculoskeletal: Cervical back: Normal range of motion and neck supple. No edema, erythema, rigidity or tenderness. No pain with movement. Normal range of motion. Lymphadenopathy: Cervical: No cervical adenopathy. Skin: General: Skin is warm and dry. Neurological: Mental Status: She is alert and oriented to person, place, and time. ASSESSMENT/PLAN: 1. Viral bronchitis - ICD9: 466.0, ICD10: J20.8 Bilateral wheezing noted on auscultation. Rescue inhaler has helped. Diagnosed with viral bronchitis. We discussed chest x-ray. Patient declined x-ray at this time. Treat as viral etiology. No evidence of bacterial infection noted. Patient was educated on supportive therapies. Patient will follow up with primary care provider as needed. Patient was instructed to immediately proceed to emergency room for any new, worsening, or symptoms lasting longer than anticipated. The patient's clinical presentation is otherwise unremarkable at this time. Based on exam and clinical finding, the patient is stable for discharge. Plan of care was discussed with patient. Patient (more content not included)... [facility] 07-14-2023 History of Presen t illness Narrative Subjective HPI Nontoxic-appearing female presents urgent care chief complaint cough chest congestion wheezing body aches chills. Most prominent symptom today is cough nasal congestion wheezing. States wheezing with coughing only. History of bronchitis this feels similar. Has not used any OTC medications. No known sick contacts. 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 Past medical history prescription medication use and allergies reviewed. Denies chance of . Is not breast-feeding. .Patient presents with: Cough: Chest congestion, wheezing, body aches x 5 days PAST MEDICAL HISTORY Diagnosis Date Pneumonia 2010 PAST SURGICAL HISTORY Procedure Laterality Date NONE ALLERGIES Patient has no known allergies. MEDICATIONS albuterol HFA (PROVENTIL HFA, VENTOLIN HFA) 90 mcg/actuation inhaler Inhale 2 Puffs as instructed every 4 hours as needed for wheezing/shortness of breath. fluticasone (FLONASE) 50 mcg/actuation nasal spray Use 2 Sprays in each nostril once daily. Rinse mouth after use. (Patient not taking: Reported on 09/10/2022) FLUoxetine (PROZAC) 20 mg capsule Take 1 capsule by mouth once daily. (Patient not taking: Reported on 06/13/2021 ) L. vlqtfqvon-X-vvxv cit-yeast ([facility] IMMUNE DEFENSE) 2.5 billion cell-20 mg-3 mg cap Take 1 capsule by mouth once daily. (Patient not taking: Reported on 06/13/2021 ) FAMILY HISTORY Problem Relation Age of Onset Heart Maternal Grandfather 59 Bypass Social History Tobacco Use Smoking status: Never Smokeless tobacco: Never Substance Use Topics Alcohol use: No Drug use: No BP 98/60 Pulse 66 Temp 36.1 C (97 F) Resp 19 Wt 49 kg (108 lb) LMP 03/29/2019 SpO2 97% BMI 18.54 kg/m Review of Systems Constitutional: Positive for malaise/fatigue. Negative for chills and fever. HENT: Positive for congestion and sore throat. Negative for ear discharge, ear pain and sinus pain. Eyes: Negative for blurred vision, pain, discharge and redness. Respiratory: Positive for cough and wheezing. Negative for hemoptysis, sputum production, shortness of breath and stridor. Cardiovascular: Negative for chest pain. Gastrointestinal: Negative for abdominal pain, diarrhea, nausea and vomiting. Musculoskeletal: Positive for myalgias. Skin: Negative for itching and rash. Neurological: Negative for dizziness and headaches. Objective Physical Exam Constitutional: General: She is not in acute distress. Appearance: She is not diaphoretic. HENT: Head: Normocephalic. Jaw: No trismus, tenderness, swelling or pain on movement. Right Ear: Tympanic membrane, ear canal and external ear normal. Left Ear: Tympanic membrane, ear canal and external ear normal. Nose: Congestion present. Mouth/Throat: Mouth: Mucous membranes are moist. Pharynx: Oropharynx is clear. Uvula midline. No pharyngeal swelling, oropharyngeal exudate, posterior oropharyngeal erythema or uvula swelling. Eyes: Conjunctiva/sclera: Conjunctivae normal. Pupils: Pupils are equal, round, and reactive to light. Cardiovascular: Rate and Rhythm: Normal rate and regular rhythm. Heart sounds: Normal heart sounds. Pulmonary: Effort: Pulmonary effort is normal. No tachypnea, accessory muscle usage or respiratory distress. Breath sounds: No stridor. Wheezing present. No rhonchi or rales. Abdominal: General: There is no distension. Palpations: Abdomen is soft. Tenderness: There is no abdominal tenderness. There is no guarding or rebound. Musculoskeletal: Cervical back: Normal range of motion and neck supple. No edema, erythema, rigidity or tenderness. No pain with movement. Normal range of motion. Lymphadenopathy: Cervical: No cervical adenopathy. Skin: General: Skin is warm and dry. Neurological: Mental Status: She is alert and oriented to person, place, and time. ASSESSMENT/PLAN: 1. Viral bronchitis - ICD9: 466.0, ICD10: J20.8 Bilateral wheezing noted on auscultation. Rescue inhaler has helped. Diagnosed with viral bronchitis. We discussed chest x-ray. Patient declined x-ray at this time. Treat as viral etiology. No evidence of bacterial infection noted. Patient was educated on supportive therapies. Patient will follow up with primary care provider as needed. Patient was instructed to immediately proceed to emergency room for any new, worsening, or symptoms lasting longer than anticipated. The patient's clinical presentation is otherwise unremarkable at this time. Based on exam and clinical finding, the patient is stable for discharge. Plan of care was discussed with patient. Patient verbalizes understanding and agrees to plan of care. This note was generated using Wahanda software. It may contain errors in wording, punctuation, or spelling. Malena Philippe APRN.CIARA documented in this encounter [facility] 09-10-2022 Instructions Malena Philippe APRN.CIARA - 09/10/2022 7:05 PM EST How to Manage Common Symptoms Associated with COVID for Adults Fever- Fever is a temperature over 100.4 F and can occur when the body is fighting an infection. To help treat a fever: Drink plenty of fluids and stay well hydrated. Eat small amounts of easy to digest food. Rest. Your body needs rest to recover, but getting up and moving around the house frequently is a good idea. You should try to continue doing your normal daily activities (bathing, toileting, grooming, cooking), though you will probably feel tired, and need to rest often. Avoid any heavy activity or exercise, as this will increase your body temperature. Dress in light clothing and stay covered in a light sheet. Keep the room temperature cool. Take a slightly warm (not cold or cool) bath, or apply damp washcloths to the forehead and wrists. Cough- Cough is a common symptom associated with COVID and can be bothersome. To help treat a cough: Stay well hydrated. Try warm water or tea with lemon and/or honey to help soothe the cough. Use a humidifier to add moisture to the air. Try a product with menthol, like a cough drop or a rub for your chest such as Vicks, which can help reduce cough. Try cough drops. Avoid smoking and other strong odors or perfumes. Try breathing exercises to keep your lungs open and clear. Take a big deep breath through your nose and hold for 5 seconds before slowly releasing. Repeat frequently, while you are awake. Congestion- Runny nose or nasal congestion can occur with COVID. Treatment can help relieve symptoms: Try OTC nasal saline spray, or nasal saline rinse to relieve mucus congestion. Nasal strips can help keep nasal passages open, to increase airflow. Elevating your head with an extra pillow in bed can help reduce congestion. Using a humidifier can increase moisture in the air, and make breathing easier. Sore Throat- Another common symptom with COVID, can be managed at home by: Stay well hydrated. Gargle with salt water - mix teaspoon salt with 1 cup of warm water and gargle. This helps to loosen mucus in the back of the throat and may reduce discomfort. Try ice chips, popsicles or lozenges to soothe the throat. Nausea/Vomiting/Diarrhea- These are common symptoms, and staying hydrated is most important. If you are nauseous or vomiting, start with small sips of water every 10-15 minutes and increase as tolerated. You can try sucking an ice cube too. If tolerating, you can try pedialyte or Gatorade, or flat sprite or michelle-laura. Start slowly and increase as you are able to. Instead of meals, try smaller, more frequent snacks. Try eating bland foods like crackers, toast, rice, and applesauce. Avoid spicy, greasy or fried foods and dairy containing foods. Even if you aren't feeling hungry due to lack of smell or taste, it is important to try to take in some food when you are able. After drinking and eating, rest in an upright position for up to two hours as needed to help decrease nauseous feelings. Try closing your eyes, avoid moving and watching TV. Avoid strong odors that can make you feel more nauseated. When to seek emergency medical attention Look for emergency warning signs for COVID-19. If having any of these symptoms, seek emergency medical care immediately: Trouble breathing Persistent pain or pressure in the chest New confusion Inability to wake or stay awake Bluish lips or face *This list is not all possible symptoms. Please call your medical provider for any other symptoms that are severe or concerning to you. documented in this encounter [facility] 09-10-2022 History of Presen t illness Narrative Subjective HPI A nontoxic appearing female presents to urgent care with chief complaint of possible UTI. Duration of symptoms 2 days. Associated symptoms dysuria, frequency, and urgency. Patient has history of UTIs in past with similar signs and symptoms. Patient denies the use of any [id number] medications or home remedies for symptom management. Patient states pain is a 4/10. Patient denies any fevers, flank pain, abdominal pain, nausea, vomiting, vaginal discharge, chance of STDs, chance of , or urological abnormalities. Patient does want tested for COVID-19 and influenza. States she was in contact with individuals who had COVID-19 [address] her place of employment. She does have some body aches chills headache and sore throat. History of COVID-19 greater than 90 days. She is not vaccinated. Past medical history prescription medication use allergies reviewed. .Patient presents with: Dysuria: burning and pain with urination, bodyaches and headache x 4 days PAST MEDICAL HISTORY Diagnosis Date Pneumonia 2010 PAST SURGICAL HISTORY Procedure Laterality Date NONE ALLERGIES Patient has no known allergies. MEDICATIONS fluticasone (FLONASE) 50 mcg/actuation nasal spray Use 2 Sprays in each nostril once daily. Rinse mouth after use. (Patient not taking: Reported on 09/10/2022) FLUoxetine (PROZAC) 20 mg capsule Take 1 capsule by mouth once daily. (Patient not taking: Reported on 06/13/2021 ) L. aiiyeqkic-L-vxdw cit-yeast ([facility]MMUN[facility]) 2.5 billion cell-20 mg-3 mg cap Take 1 capsule by mouth once daily. (Patient not taking: Reported on 06/13/2021 ) FAMILY HISTORY Problem Relation Age of Onset Heart Maternal Grandfather 59 [address] Social History Tobacco Use Smoking status: Never Smokeless tobacco: Never Substance Use Topics Alcohol use: No Drug use: No BP 106/62 Pulse 82 Temp 36.8 C (98.3 F) Resp 16 Wt 46.8 kg (103 lb 3.2 oz) LMP 03/29/2019 SpO2 98% BMI 17.71 kg/m Review of Systems Constitutional: Positive for malaise/fatigue. Negative for chills and fever. HENT: Negative for congestion, ear discharge, ear pain, sinus pain and sore throat. Eyes: Negative for blurred vision, pain, discharge and redness. Respiratory: Negative for cough, hemoptysis, sputum production, shortness of breath, wheezing and stridor. Cardiovascular: Negative for chest pain. Gastrointestinal: Negative for abdominal pain, diarrhea, nausea and vomiting. Genitourinary: Positive for dysuria, frequency and urgency. Negative for flank pain and hematuria. Musculoskeletal: Positive for myalgias. Skin: Negative for itching and rash. Neurological: Positive for headaches. Negative for dizziness. Objective Physical Exam Constitutional: General: She is not in acute distress. Appearance: She is not diaphoretic. HENT: Head: Normocephalic. Mouth/Throat: Mouth: Mucous membranes are moist. Pharynx: Oropharynx is clear. No oropharyngeal exudate or posterior oropharyngeal erythema. Eyes: Conjunctiva/sclera: Conjunctivae normal. Pupils: Pupils are equal, round, and reactive to light. Cardiovascular: Rate and Rhythm: Normal rate and regular rhythm. Heart sounds: Normal heart sounds. Pulmonary: Effort: Pulmonary effort is normal. No tachypnea, accessory muscle usage or respiratory distress. Breath sounds: Normal breath sounds. No stridor. No wheezing, rhonchi or rales. Abdominal: Palpations: Abdomen is soft. Tenderness: There is no abdominal tenderness. Musculoskeletal: Cervical back: Normal range of motion and neck supple. No rigidity or tenderness. Lymphadenopathy: Cervical: No cervical adenopathy. Skin: General: Skin is warm and dry. Neurological: Mental Status: She is alert and oriented to person, place, and time. ASSESSMENT/PLAN: 1. Burning with urination - ICD9: 788.1, ICD10: R30.0 (primary diagnosis) - UA DIP, URINE (POC) - URINE CULTURE 2. Viral illness - ICD9: 079.99, ICD10: B34.9 - Discussed viral etiology and rationale for treatment. - Symptomatic treatment with prn analgesia - Supportive care with fluids and rest - COVID WITH FLUA+B, ROUTINE Urine dip negative. Will not treat with antibiotics at this time. Red flag prompt reevaluation discussed. Patient was educated on supportive therapies. Patient will follow up with primary care provider as needed. Patient was instructed to immediately proceed to emergency room for any new, worsening, or symptoms lasting longer than anticipated. The patient's clinical presentation is otherwise unremarkable at this time. Based on exam and clinical finding, the patient is stable for discharge. Plan of care was discussed with patient. Patient verbalizes understanding and agrees to plan of care. This note was generated using Wahanda software. It may contain errors in wording, punctuation, or spelling. Malena Philippe APRN.CIARA documented in this encounter [facility] 08-07-2022 Note HNO ID: [id number] Author: Eliot Miguel OTR/Pedrito Service: ? Author Type: Occupational Therapist Type: Progress Notes Filed: 08/07/2022 2:57 PM Note Text: Episode Visit Count: 6 Therapist That Will Accept/Oversee The Plan Of Care: Anton Miguel Start of Care Date: 06/12/22 Onset Date: 06/02/22 Patient Identified by Name and Date of : Yes REHABILITATION AND SPORTS THERAPY OCCUPATIONAL THERAPY DISCONTINUANCE OF CARE PLAN OF CARE UPDATE: Assessment: Ana Whiteside is discontinued from Occupational Therapy services due to goal achievement.. Patient was seen for 6 visits from Start of Care Date: 06/12/22 to 08/07/2022 and treatment included: Therapeutic exercise, Neuromuscular re-education, and Modalities. Goals for Episode of Care created on 06/12/22 through 08/07/22 Assessed 07/10/22, 08/07 1. Patient will report a good understanding of diagnosis and OT recommendations for progression of program. MET 08/07/22 2. Patient will demonstrate independence with ongoing home recommendations/exercise program throughout therapy plan of care. MET 08/07/22 3. Patient will improve function in Left wrist and finger in order to be able to perform basic self-care tasks, home management tasks, leisure / recreation skills, light functional tasks, prior functional tasks, and work tasks. MET 08/07/22 4. Patient will increase AROM of Left wrist extension and finger extension to WFL in order to be able to improve function for basic self-care tasks, home management tasks, leisure / recreation skills, light functional tasks, prior functional tasks, and work tasks. MET 08/07/22 5. Patient will increase Left coremaker helper strength by 10#, so that patient will be able to improve function for basic self-care tasks, home management tasks, leisure / recreation skills, light functional tasks, prior functional tasks, and work tasks. NEARLY MET 08/07/22 Increased by 9# 6. Patient will increase Left pinch by 5# so that patient will be able to improve function for basic self-care tasks, home management tasks, leisure / recreation skills, light functional tasks, prior functional tasks, and work tasks. MET 08/07/22 7. Patient will independently demonstrate good joint protection/body mechanics/postural control techniques during basic self-care tasks, home management tasks, leisure / recreation skills, light functional tasks, prior functional tasks, and work tasks. MET 08/07/22 Patient Goals: function of the hand back SUBJECTIVE: OT progress I am doing everything like I used to. Just have difficulty with my arm tiring out quicker right now. Pain: Pain Pain Level: 0 PROMIS Scales Higher is Better 07/04/2022 07/10/2022 08/07/2022 Phys Func - Score - 49 (within normal limits) 56 (within normal limits) Phys Func - Percentile - 46 % 73 % GH Physical - Score 54.1 (Very Good) - - GH Physical - Percentile 66 % - - GH Mental - Score 48.3 (Very Good) - - GH Mental - Percentile 43 % - - Self-Eff Symptom - Score - 48 (Average) 48 (Average) Self-Eff Symptom - Percentile - 42 % 42 % T-scores: mean of general population = 50. 5 points is clinically meaningfully difference Percentiles provide an indication of how the patient's score ranks in relation to the general population. Higher percentile rankings indicate better function/quality of life. 50th percentile is the average of the general population and indicates half of respondents had a worse score. T-scores: mean of general population = 50. 5 points is clinically meaningfully difference Percentiles provide an indication of how the patient's score ranks in relation to the general population. Higher percentile rankings indicate better function/quality of life. 50th percentile is the average of the general population and indicates half of respondents had a worse score. OBJECTIVE MEASURES WITH LEVEL OF FUNCTION: Hand Strength R Architectural Modeler Position 2 (lbs): 58 lbs L Architectural Modeler Position 2 (lbs): 50 lbs R Lateral Pinch (lbs): 16 lbs L Lateral Pinch (lbs): 15 lbs UE AROM L Wrist Extension: 75 Degrees L Wrist Radial Deviation: 17 Degrees UE and Cervical Strength L UE Strength: Proximal 4+/5 L Forearm Supination: 4+/5 L Forearm Pronation: 4+/5 L Wrist Extension: 3+/5 L Wrist Flexion: 4+/5 Current Activities Of Daily Living Dressing Upper Body: Independent Instrumental Activities of Daily Living Cooking: Independent Cleaning: Independent Laundry: Independent TREATMENT: Therapeutic Exercise: 1: completed discharge assessment 2: simulated carrying tray of dishes 20# x 10 with a carry of approximately 20 feet. 3: over head fine motor task for increasing UE activity tolerance. 4: SciFit UBE setting at level 3. 5 min forward and 5 min backwards with an RPM of 50 or greater for increasing activity tolerance Skilled Intervention: Patient was educated in proper exercise technique and purpose for exercises. Skilled judgment was provided in (more content not included)... [facility] 07-24-2022 Note HNO ID: [id number] Author: TJ Matos/Pedirto Service: ? Author Type: Occupational Therapist Type: Progress Notes Filed: 07/24/2022 9:34 AM Note Text: Episode Visit Count: 5 Therapist That Will Accept/Oversee The Plan Of Care: Anton Miguel Start of Care Date: 06/12/22 Onset Date: 06/02/22 Patient Identified by Name and Date of : Yes REHABILITATION AND SPORTS THERAPY OCCUPATIONAL THERAPY TREATMENT NOTE ASSESSMENT: Ana Whiteside tolerated the session with decreased endurance and expected muscle soreness. She demonstrated improvements in L wrist extension, radial deviation, and L thumb extension. The patient will continue to benefit from ongoing skilled occupational therapy to progress toward set goals. PLAN FOR NEXT VISIT: monthly, check in on changes to HEP, progress strengthening as able, if time permits 9 hole peg and box and blocks SUBJECTIVE: OT treatment My arm is doing much better since I was here last. Client reported yellow tputty was getting too easy. Pain: Pain Pain Location: Hand - Left Description: Numbness (over dorsal radial aspect of hand, no longer in forearm) OBJECTIVE MEASURES WITH LEVEL OF FUNCTION: UE AROM L Wrist Extension: 20 Degrees L Wrist Radial Deviation: 14 Degrees TREATMENT: Therapeutic Exercise: 1: Client removed 25 pony beads from yellow tputty using L hand targeting increased hand strength 2: Progressed client's tputty HEP by providing red tputty 3: *Finger abduction using rubberband, 1 set x 10 reps digits 2-3, digits 3-4, and digits 4-5 4: *Finger extension using rubberband, 1 set x 10 reps 5: Trialed thumb extension with rubberband, difficult at this time due to reduced strength 6: *Thumb extension against loop of yellow tputty, 1 set x 10 reps 7: *Thumb radial abduction using rubber band, 1 set x 10 reps 8: *Wrist extension gravity eliminated 1# weight, 1 set x 10 reps 9: *Wrist radial deviation gravity eliminated 1# weight, forearm supinated to limit wrist drop, 1 set x 10 reps Skilled Intervention: Patient was educated in proper exercise technique and purpose for exercises. Reviewed and educated patient on additions/changes for home exercise program as above (*). Skilled judgment was provided in selection of appropriate interventions. Provided written instruction for home exercise program to facilitate proper performance and compliance. Billing Therapeutic Exercise Treatment Minutes: 41 Total Treatment Time Minutes (timed/untimed): 41 TJ Matos/Pedrito [facility] 07-24-2022 History of Presen t illness Narrative Episode Visit Count: 5 Therapist That Will Accept/Oversee The Plan Of Care: Anton Miguel Start of Care Date: 06/12/22 Onset Date: 06/02/22 Patient Identified by Name and Date of : Yes REHABILITATION AND SPORTS THERAPY OCCUPATIONAL THERAPY TREATMENT NOTE ASSESSMENT: Ana Whiteside tolerated the session with decreased endurance and expected muscle soreness. She demonstrated improvements in L wrist extension, radial deviation, and L thumb extension. The patient will continue to benefit from ongoing skilled occupational therapy to progress toward set goals. PLAN FOR NEXT VISIT: monthly, check in on changes to HEP, progress strengthening as able, if time permits 9 hole peg and box and blocks SUBJECTIVE: OT treatment My arm is doing much better since I was here last. Client reported yellow tputty was getting too easy. Pain: Pain Pain Location: Hand - Left Description: Numbness (over dorsal radial aspect of hand, no longer in forearm) OBJECTIVE MEASURES WITH LEVEL OF FUNCTION: UE AROM L Wrist Extension: 20 Degrees L Wrist Radial Deviation: 14 Degrees TREATMENT: Therapeutic Exercise: 1: Client removed 25 pony beads from yellow tputty using L hand targeting increased hand strength 2: Progressed client's tputty HEP by providing red tputty 3: *Finger abduction using rubberband, 1 set x 10 reps digits 2-3, digits 3-4, and digits 4-5 4: *Finger extension using rubberband, 1 set x 10 reps 5: Trialed thumb extension with rubberband, difficult at this time due to reduced strength 6: *Thumb extension against loop of yellow tputty, 1 set x 10 reps 7: *Thumb radial abduction using rubber band, 1 set x 10 reps 8: *Wrist extension gravity eliminated 1# weight, 1 set x 10 reps 9: *Wrist radial deviation gravity eliminated 1# weight, forearm supinated to limit wrist drop, 1 set x 10 reps Skilled Intervention: Patient was educated in proper exercise technique and purpose for exercises. Reviewed and educated patient on additions/changes for home exercise program as above (*). Skilled judgment was provided in selection of appropriate interventions. Provided written instruction for home exercise program to facilitate proper performance and compliance. Billing Therapeutic Exercise Treatment Minutes: 41 Total Treatment Time Minutes (timed/untimed): 41 KRYSTA Matos documented in this encounter [facility] 07-10-2022 Note HNO ID: [id number] Author: KRYSTA Malloy Service: ? Author Type: Occupational Therapist Type: Progress Notes Filed: 07/10/2022 11:39 AM Note Text: Episode Visit Count: 4 Therapist That Will Accept/Oversee The Plan Of Care: Anton Miguel Start of Care Date: 06/12/22 Onset Date: 06/02/22 Patient Identified by Name and Date of : Yes REHABILITATION AND SPORTS THERAPY OCCUPATIONAL THERAPY PROGRESS REPORT PLAN OF CARE UPDATE: Assessment: Ana Whiteside demonstrates minimal improvement in dressing, weight bearing, gripping, pinching, twisting, pulling, pushing, and carrying. She has met 0 goals and progressed toward goals. Patient continues to present with impairments in ADL's, coordination, range of motion, and strength that interfere with heavy exertion;lifting;grooming;use hand with arm at shoulder level;cleaning;cooking;dressing; gripping;pinching;twisting;pulli ng;pushing; carrying . Current prognosis is Good due to: good overall health status;good support system/ coping skills . She will benefit from continued skilled therapy services to meet the updated goals for this plan of care as noted below. Goals for Episode of Care created on 06/12/22 through 08/07/22 Assessed 07/10/22 1. Patient will report a good understanding of diagnosis and OT recommendations for progression of program. ONGOING 07/10/22 2. Patient will demonstrate independence with ongoing home recommendations/exercise program throughout therapy plan of care. ONGOING 07/10/22 3. Patient will improve function in Left wrist and finger in order to be able to perform basic self-care tasks, home management tasks, leisure / recreation skills, light functional tasks, prior functional tasks, and work tasks. ONGOING 07/10/22 4. Patient will increase AROM of Left wrist extension and finger extension to WFL in order to be able to improve function for basic self-care tasks, home management tasks, leisure / recreation skills, light functional tasks, prior functional tasks, and work tasks. PROGRESSING 07/10/22 5. Patient will increase Left coremaker helper strength by 10#, so that patient will be able to improve function for basic self-care tasks, home management tasks, leisure / recreation skills, light functional tasks, prior functional tasks, and work tasks. ONGOING 07/10/22 6. Patient will increase Left pinch by 5# so that patient will be able to improve function for basic self-care tasks, home management tasks, leisure / recreation skills, light functional tasks, prior functional tasks, and work tasks. ONGOING 07/10/22 7. Patient will independently demonstrate good joint protection/body mechanics/postural control techniques during basic self-care tasks, home management tasks, leisure / recreation skills, light functional tasks, prior functional tasks, and work tasks. ONGOING 07/10/22 Patient Goals: function of the hand back Planned Interventions, Frequency, and Duration: 1x every other week, 12 weeks Total Number of Visits Planned: 8 Planned Treatment Interventions: Therapeutic exercise (10788);Therapeutic activities (45697);Manual therapy (11689);Neuromuscular re-education (17257);Self-fci management (12651);Fluidotherapy (72505);Paraffin Bath (76626);E-Stim Attended/TENS (51908) PLAN FOR NEXT VISIT: trial rubber band finger extension abduction thumb extension abduction - check on putty resistance - if time permits perform 9 hole and box and block SUBJECTIVE: OT progress I had my EMG and the nerve is affected above my elbow Functional Limitations: heavy exertion;lifting;grooming;use hand with arm at shoulder level;cleaning;cooking;dressing; gripping;pinching;twisting;pulli ng;pushing; carrying Pain: Pain Pain Level: 0 Pain Location: Hand - Left;Forearm - Left Description: Numbness (improving) PROMIS Scales Higher is Better 06/10/2022 07/04/2022 07/10/2022 Phys Func - Score 39 (moderate dysfunction) - 49 (within normal limits) Phys Func - Percentile 14 % - 46 % GH Physical - Score - 54.1 (Very Good) - GH Physical - Percentile - 66 % - GH Mental - Score - 48.3 (Very Good) - GH Mental - Percentile - 43 % - Self-Eff Symptom - Score 45 (Average) - 48 (Average) Self-Eff Symptom - Percentile 31 % - 42 % T-scores: mean of general population = 50. 5 points is clinically meaningfully difference Percentiles provide an indication of how the patient's score ranks in relation to the general population. Higher percentile rankings indicate better function/quality of life. 50th percentile is the average of the general population and indicates half of respondents had a worse score. T-scores: mean of general population = 50. 5 points is clinically meaningfully difference Percentiles provide an indication of how the patient's score ranks in relation to the general population. Higher percentile rankings indicate better function/quality of life. 50th percentile is the average of the ge (more content not included)... [facility] 07-10-2022 History of Presen t illness Narrative Episode Visit Count: 4 Therapist That Will Accept/Oversee The Plan Of Care: Anton Miguel Start of Care Date: 06/12/22 Onset Date: 06/02/22 Patient Identified by Name and Date of : Yes REHABILITATION AND SPORTS THERAPY OCCUPATIONAL THERAPY PROGRESS REPORT PLAN OF CARE UPDATE: Assessment: Ana Whiteside demonstrates minimal improvement in dressing, weight bearing, gripping, pinching, twisting, pulling, pushing, and carrying. She has met 0 goals and progressed toward goals. Patient continues to present with impairments in ADL's, coordination, range of motion, and strength that interfere with heavy exertion;lifting;grooming;use hand with arm at shoulder level;cleaning;cooking;dressing; gripping;pinching;twisting;pulli ng;pushing;carrying . Current prognosis is Good due to: good overall health status;good support system/ coping skills . She will benefit from continued skilled therapy services to meet the updated goals for this plan of care as noted below. Goals for Episode of Care created on 06/12/22 through 08/07/22 Assessed 07/10/22 1. Patient will report a good understanding of diagnosis and OT recommendations for progression of program. ONGOING 07/10/22 2. Patient will demonstrate independence with ongoing home recommendations/exercise program throughout therapy plan of care. ONGOING 07/10/22 3. Patient will improve function in Left wrist and finger in order to be able to perform basic self-care tasks, home management tasks, leisure / recreation skills, light functional tasks, prior functional tasks, and work tasks. ONGOING 07/10/22 4. Patient will increase AROM of Left wrist extension and finger extension to WFL in order to be able to improve function for basic self-care tasks, home management tasks, leisure / recreation skills, light functional tasks, prior functional tasks, and work tasks. PROGRESSING 07/10/22 5. Patient will increase Left coremaker helper strength by 10#, so that patient will be able to improve function for basic self-care tasks, home management tasks, leisure / recreation skills, light functional tasks, prior functional tasks, and work tasks. ONGOING 07/10/22 6. Patient will increase Left pinch by 5# so that patient will be able to improve function for basic self-care tasks, home management tasks, leisure / recreation skills, light functional tasks, prior functional tasks, and work tasks. ONGOING 07/10/22 7. Patient will independently demonstrate good joint protection/body mechanics/postural control techniques during basic self-care tasks, home management tasks, leisure / recreation skills, light functional tasks, prior functional tasks, and work tasks. ONGOING 07/10/22 Patient Goals: function of the hand back Planned Interventions, Frequency, and Duration: 1x every other week, 12 weeks Total Number of Visits Planned: 8 Planned Treatment Interventions: Therapeutic exercise (71268);Therapeutic activities (15377);Manual therapy (98673);Neuromuscular re-education (04331);Self-fci management (38461);Fluidotherapy (95862);Paraffin Bath (96508);E-Stim Attended/TENS (05009) PLAN FOR NEXT VISIT: trial rubber band finger extension abduction thumb extension abduction - check on putty resistance - if time permits perform 9 hole and box and block SUBJECTIVE: OT progress I had my EMG and the nerve is affected above my elbow Functional Limitations: heavy exertion;lifting;grooming;use hand with arm at shoulder level;cleaning;cooking;dressing; gripping;pinching;twisting;pulli ng;pushing;carrying Pain: Pain Pain Level: 0 Pain Location: Hand - Left;Forearm - Left Description: Numbness (improving) PROMIS Scales Higher is Better 06/10/2022 07/04/2022 07/10/2022 Phys Func - Score 39 (moderate dysfunction) - 49 (within normal limits) Phys Func - Percentile 14 % - 46 % GH Physical - Score - 54.1 (Very Good) - GH Physical - Percentile - 66 % - GH Mental - Score - 48.3 (Very Good) - GH Mental - Percentile - 43 % - Self-Eff Symptom - Score 45 (Average) - 48 (Average) Self-Eff Symptom - Percentile 31 % - 42 % T-scores: mean of general population = 50. 5 points is clinically meaningfully difference Percentiles provide an indication of how the patient's score ranks in relation to the general population. Higher percentile rankings indicate better function/quality of life. 50th percentile is the average of the general population and indicates half of respondents had a worse score. T-scores: mean of general population = 50. 5 points is clinically meaningfully difference Percentiles provide an indication of how the patient's score ranks in relation to the general population. Higher percentile rankings indicate better function/quality of life. 50th percentile is the average of the general population and indicates half of respondents had a worse score. OBJECTIVE MEASURES WITH LEVEL OF FUNCTION: Sensation - Upper Extremity UE Light Touch Sensation: Impaired (complaint of numbness over the whole thumb, from the MCP of index finger up the dorsal portion of the forearm to about 2 inches distal to the elbow.) Hand Strength L Architectural Modeler Position 2 (lbs): 41 lbs L Lateral Pinch (lbs): 8 lbs UE AROM R Wrist Extension: 0 Degrees (against gravity) R Wrist Radial Deviation: 0 Degrees Hand AROM L Index Finger MP Extension: 0 Degrees L Middle Finger MP Extension : 0 Degrees L Middle Finger PIP Extension: 0 Degrees L Ring Finger MP Extension : 0 Degrees L Ring Finger PIP Extension : 0 Degrees L Little Finger MP Extension : 0 Degrees L Little Finger PIP Extension : 0 Degrees L Thumb MP Extension : 0 Degrees UE and Cervical Strength L Wrist Extension: 2-/5 Current Activities Of Daily Living Dressing Upper Body: Minimal Assistance (continued difficulty with buttons) TREATMENT: Therapeutic Exercise: 1: thumb adduction yellow tputty 2: thumb flexion yellow tputty 3: finger flexion intrinsics yellow tputty 4: finger extension yellow tputty 5: finger flexion coremaker helper yellow tputty 6: finger flexion pinch yellow tputty 7: finger flexion adduction yellow tputty 8: wrist extension yellow tputty 9: completed all exercises to muscle fatgiue 10: completed monthly assessment and re-established POC Skilled Intervention: Patient was educated in proper exercise technique and purpose for exercises. Skilled judgment was provided in selection of appropriate interventions. Provided written instruction for home exercise program to facilitate proper performance and compliance. 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 She has been working with therapy, so far three sessions. She has not seen much worsening but no significant improvement either. Recommend to continue therapy and follow therapists' instructions. We will be happy to see patient again if there is no improvement. She understands. Joycelyn Rao documented in this encounter [facility] 06-24-2022 Note HNO ID: [id number] Author: KRYSTA Matos Service: ? Author Type: Occupational Therapist Type: Progress Notes Filed: 06/24/2022 10:49 AM Note Text: Episode Visit Count: 3 Therapist That Will Accept/Oversee The Plan Of Care: Anton Miguel Start of Care Date: 06/12/22 Onset Date: 06/02/22 Patient Identified by Name and Date of : Yes REHABILITATION AND SPORTS THERAPY OCCUPATIONAL THERAPY TREATMENT NOTE ASSESSMENT: Ana Whiteside tolerated the session with no issues. She demonstrated difficulty with L wrist extension and L thumb extension. The patient will continue to benefit from ongoing skilled occupational therapy to progress toward set goals. PLAN FOR NEXT VISIT: check in on isometrics, progress strengthening as able - tputty? SUBJECTIVE: OT treatment Client stated that she has muscle and nerve testing on the 7th. Client reported she was able to feel some engagement while performing isometric exercises and that it definitely felt like a workout. Pain: Pain Pain Location: Arm - Left Description: Numbness Frequency: Continuous (client feels numbness is less intense than it once was) OBJECTIVE MEASURES WITH LEVEL OF FUNCTION: Demonstration and min verbal cueing for correct performance of exercises. TREATMENT: Therapeutic Exercise: 1: *Isometric L wrist extension gravity eliminated, 1 set x 10 reps with 10sec hold 2: *Isometric L radial deviation wrist gravity eliminated, 1 set x 10 reps with 10sec hold 3: *Isometric L thumb extension gravity eliminated, 1 set x 10 reps with 10sec hold 4: Exercises performed in fluidotherapy at 103 degrees for 10 minutes, finger flexion/extension to grasp and release fluido medium, wrist circles clockwise and counterclockwise targeting increased strength and ROM in L hand and wrist 5: Client held cone in L hand and tipped over as if pouring water, 1 set x 5 reps (client able to complete, but wrist remained in flexion) 6: *Instructed client to perform 2 sets x 10 reps of isometrics, spacing out sessions throughout the day. Educated client that she can increase to 3 sets as able. Skilled Intervention: Patient was educated in proper exercise technique and purpose for exercises. Reviewed and educated patient on additions/changes for home exercise program as above (*). Provided written instruction for home exercise program to facilitate proper performance and compliance. Billing Therapeutic Exercise Treatment Minutes: 41 Total Treatment Time Minutes (timed/untimed): 41 TJ Matos/[facility] 06-19-2022 Note HNO ID: [id number] Author: KRYSTA Malloy Service: ? Author Type: Occupational Therapist Type: Progress Notes Filed: 06/19/2022 12:26 PM Note Text: Episode Visit Count: 2 Therapist That Will Accept/Oversee The Plan Of Care: Anton Miguel Start of Care Date: 06/12/22 Onset Date: 06/02/22 Patient Identified by Name and Date of : Yes REHABILITATION AND SPORTS THERAPY OCCUPATIONAL THERAPY TREATMENT NOTE ASSESSMENT: Ana Whiteside tolerated the session with no issues. She demonstrated difficulty with left wrist extension and finger extension. The patient will continue to benefit from ongoing skilled occupational therapy to progress toward set goals. PLAN FOR NEXT VISIT: strengthening as tolerated isometric SUBJECTIVE: OT treatment I don't feel much different. Pain: Pain Pain Level: 2 Pain Location: Arm - Left Description: Numbness Frequency: Continuous OBJECTIVE MEASURES WITH LEVEL OF FUNCTION: TREATMENT: Neuromuscular Re-Education: 1: stretching to left wrist in extension and finger extension Skilled Intervention: Skilled judgment used to assess appropriate program for balance and coordination activity. Education and demonstration for posture and positioning for tone management. Modalities: Fluidotherapy;E-Stim Attended/TENS Body Region Treated - E-Stim Attended/TENS: left wrist extensors Patient Position: seated Current: NMES Channels: 1 Intensity: 2 Minutes: 15 Body Region Treated - Fluidotherapy: left arm Patient Position: seated Minute(s): 10 minutes Activity 1: pronation/supination Activity 2: wrist flexion extension Activity 3: finger flexion/extension Skilled Intervention: Proper administration and selection of modality based on clinical presentation, deficits, and needs. Patient response monitored throughout treatment. Billing Neuromuscular Re-Education Treatment Minutes: 10 E- Stim Attended/TENS Treatment Minutes: 15 Total Treatment Time Minutes (timed/untimed): 40 Fluidotherapy (41488): 1 unit (untimed) TJ Malloy/[facility] 06-19-2022 History of Presen t illness Narrative Episode Visit Count: 2 Therapist That Will Accept/Oversee The Plan Of Care: Anton Miguel Start of Care Date: 06/12/22 Onset Date: 06/02/22 Patient Identified by Name and Date of : Yes REHABILITATION AND SPORTS THERAPY OCCUPATIONAL THERAPY TREATMENT NOTE ASSESSMENT: Ana Whiteside tolerated the session with no issues. She demonstrated difficulty with left wrist extension and finger extension. The patient will continue to benefit from ongoing skilled occupational therapy to progress toward set goals. PLAN FOR NEXT VISIT: strengthening as tolerated isometric SUBJECTIVE: OT treatment I don't feel much different. Pain: Pain Pain Level: 2 Pain Location: Arm - Left Description: Numbness Frequency: Continuous OBJECTIVE MEASURES WITH LEVEL OF FUNCTION: TREATMENT: Neuromuscular Re-Education: 1: stretching to left wrist in extension and finger extension Skilled Intervention: Skilled judgment used to assess appropriate program for balance and coordination activity. Education and demonstration for posture and positioning for tone management. Modalities: Fluidotherapy;E-Stim Attended/TENS Body Region Treated - E-Stim Attended/TENS: left wrist extensors Patient Position: seated Current: NMES Channels: 1 Intensity: 2 Minutes: 15 Body Region Treated - Fluidotherapy: left arm Patient Position: seated Minute(s): 10 minutes Activity 1: pronation/supination Activity 2: wrist flexion extension Activity 3: finger flexion/extension Skilled Intervention: Proper administration and selection of modality based on clinical presentation, deficits, and needs. Patient response monitored throughout treatment. Billing Neuromuscular Re-Education Treatment Minutes: 10 E- Stim Attended/TENS Treatment Minutes: 15 Total Treatment Time Minutes (timed/untimed): 40 Fluidotherapy (22786): 1 unit (untimed) KRYSTA Malloy documented in this encounter [facility] 06-12-2022 Note HNO ID: [id number] Author: KRYSTA Malloy Service: ? Author Type: Occupational Therapist Type: Progress Notes Filed: 06/12/2022 4:24 PM Note Text: Episode Visit Count: 1 Therapist That Will Accept/Oversee The Plan Of Care: Anton Miguel Start of Care Date: 06/12/22 Onset Date: 06/02/22 Patient Identified by Name and Date of : Yes [facility] REHABILITATION AND SPORTS THERAPY OCCUPATIONAL THERAPY EVALUATION PLAN OF CARE: Assessment: Ana Whiteside presents with diagnosis of left wrist radial neuropathy that interferes with heavy exertion;lifting;grooming;use hand with arm at shoulder level;cleaning;cooking;dressing; gripping;pinching;twisting;pulli ng;pushing; carrying . She presents with impairments in ADL's, coordination, overall function, range of motion, and strength . PROMIS? (Patient-Reported Outcomes Measurement Information System) scores were reviewed and physical function domain identified as a rehabilitation concern. Prognosis for therapy is Good due to: good overall health status;good support system/ coping skills . She will benefit from skilled therapy services to meet the goals established for this plan of care as noted below. Goals for Episode of Care created on 06/12/22 through 08/07/22 Patient will report a good understanding of diagnosis and OT recommendations for progression of program. Patient will demonstrate independence with ongoing home recommendations/exercise program throughout therapy plan of care. Patient will improve function in Left wrist and finger in order to be able to perform basic self-care tasks, home management tasks, leisure / recreation skills, light functional tasks, prior functional tasks, and work tasks. Patient will increase AROM of Left wrist extension and finger extension to WFL in order to be able to improve function for basic self-care tasks, home management tasks, leisure / recreation skills, light functional tasks, prior functional tasks, and work tasks. Patient will increase Left coremaker helper strength by 10#, so that patient will be able to improve function for basic self-care tasks, home management tasks, leisure / recreation skills, light functional tasks, prior functional tasks, and work tasks. Patient will increase Left pinch by 5# so that patient will be able to improve function for basic self-care tasks, home management tasks, leisure / recreation skills, light functional tasks, prior functional tasks, and work tasks. Patient will independently demonstrate good joint protection/body mechanics/postural control techniques during basic self-care tasks, home management tasks, leisure / recreation skills, light functional tasks, prior functional tasks, and work tasks. Patient Goals: function of the hand back Planned Interventions, Frequency, and Duration: Current Frequency: 1x/week Duration: 8 weeks Total Number of Visits Planned: 8 Planned Treatment Interventions: Therapeutic exercise (34849);Therapeutic activities (27310);Manual therapy (54666);Neuromuscular re-education (84976);Self-fci management (10627);Fluidotherapy (33928);Paraffin Bath (17518);E-Stim Attended/TENS (85604) PLAN FOR NEXT VISIT: wrist stretching and strengthening as tolerated Patient demonstrates good understanding of plan of care and treatment. The above goals and plan of care were discussed and agreed upon by patient/family. SUBJECTIVE: Ana Whiteside is a 22 year old female seen today for OT eval and treat due to neuropathy Functional Limitations: heavy exertion;lifting;grooming;use hand with arm at shoulder level;cleaning;cooking;dressing; gripping;pinching;twisting;pulli ng;pushing; carrying Prior Level of Function: Independent without limitations Patient Goals: function of the hand back Intake Information: Prescription present Relevant History Past Relevant Medical Conditions: Concussion Past Relevant Surgical Conditions: Comments Relevant Surgical Conditions Comments: appy Highest Level of Education: High School Right or Left Handed: Right 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: [employer] Home Environment Patient Lives With: Family Assistance Available: PRN Home Type: Multi-Level Entry To Home: Stairs Number Of Stairs Into Home: 2 Number Of Stairs To Bed/Bath: full flight Pain: Pain Pain Level: 0 Post Treatment Pain Post Treatment Pain Level: 0 PROMIS Scales Higher is Better 06/06/2022 06/10/2022 Phys Func - Score - 39 (moderate dysfunction) Phys Func - Percentile - 14 % GH Physical - Score 44.9 (Good) - GH Physical - Percentile 31 % - GH Mental - Score 41.1 (Good) - GH Mental - Percentile 19 % - Self-Eff Symptom - Score - 45 (Average) Self-Eff Symptom - Percentile - 31 % T-scores: mean of general population = 50. 5 points is clinically meaningfully difference Percentiles provide an indication of how the patient's score ranks in relation to the ge (more content not included)... [facility] 06-12-2022 History of Presen t illness Narrative Episode Visit Count: 1 Therapist That Will Accept/Oversee The Plan Of Care: Anton Miguel Start of Care Date: 06/12/22 Onset Date: 06/02/22 Patient Identified by Name and Date of : Yes [facility] REHABILITATION AND SPORTS THERAPY OCCUPATIONAL THERAPY EVALUATION PLAN OF CARE: Assessment: Ana Whiteside presents with diagnosis of left wrist radial neuropathy that interferes with heavy exertion;lifting;grooming;use hand with arm at shoulder level;cleaning;cooking;dressing; gripping;pinching;twisting;pulli ng;pushing;carrying . She presents with impairments in ADL's, coordination, overall function, range of motion, and strength . PROMIS (Patient-Reported Outcomes Measurement Information System) scores were reviewed and physical function domain identified as a rehabilitation concern. Prognosis for therapy is Good due to: good overall health status;good support system/ coping skills . She will benefit from skilled therapy services to meet the goals established for this plan of care as noted below. Goals for Episode of Care created on 06/12/22 through 08/07/22 Patient will report a good understanding of diagnosis and OT recommendations for progression of program. Patient will demonstrate independence with ongoing home recommendations/exercise program throughout therapy plan of care. Patient will improve function in Left wrist and finger in order to be able to perform basic self-care tasks, home management tasks, leisure / recreation skills, light functional tasks, prior functional tasks, and work tasks. Patient will increase AROM of Left wrist extension and finger extension to WFL in order to be able to improve function for basic self-care tasks, home management tasks, leisure / recreation skills, light functional tasks, prior functional tasks, and work tasks. Patient will increase Left coremaker helper strength by 10#, so that patient will be able to improve function for basic self-care tasks, home management tasks, leisure / recreation skills, light functional tasks, prior functional tasks, and work tasks. Patient will increase Left pinch by 5# so that patient will be able to improve function for basic self-care tasks, home management tasks, leisure / recreation skills, light functional tasks, prior functional tasks, and work tasks. Patient will independently demonstrate good joint protection/body mechanics/postural control techniques during basic self-care tasks, home management tasks, leisure / recreation skills, light functional tasks, prior functional tasks, and work tasks. Patient Goals: function of the hand back Planned Interventions, Frequency, and Duration: Current Frequency: 1x/week Duration: 8 weeks Total Number of Visits Planned: 8 Planned Treatment Interventions: Therapeutic exercise (18884);Therapeutic activities (87988);Manual therapy (55916);Neuromuscular re-education (98554);Self-fci management (60918);Fluidotherapy (63562);Paraffin Bath (65345);E-Stim Attended/TENS (64275) PLAN FOR NEXT VISIT: wrist stretching and strengthening as tolerated Patient demonstrates good understanding of plan of care and treatment. The above goals and plan of care were discussed and agreed upon by patient/family. SUBJECTIVE: Ana Whiteside is a 22 year old female seen today for OT eval and treat due to neuropathy Functional Limitations: heavy exertion;lifting;grooming;use hand with arm at shoulder level;cleaning;cooking;dressing; gripping;pinching;twisting;pulli ng;pushing;carrying Prior Level of Function: Independent without limitations Patient Goals: function of the hand back Intake Information: Prescription present Relevant History Past Relevant Medical Conditions: Concussion Past Relevant Surgical Conditions: Comments Relevant Surgical Conditions Comments: appy Highest Level of Education: High School Right or Left Handed: Right 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: [employer] Home Environment Patient Lives With: Family Assistance Available: PRN Home Type: Multi-Level Entry To Home: Stairs Number Of Stairs Into Home: 2 Number Of Stairs To Bed/Bath: full flight Pain: Pain Pain Level: 0 Post Treatment Pain Post Treatment Pain Level: 0 PROMIS Scales Higher is Better 06/06/2022 06/10/2022 Phys Func - Score - 39 (moderate dysfunction) Phys Func - Percentile - 14 % GH Physical - Score 44.9 (Good) - GH Physical - Percentile 31 % - GH Mental - Score 41.1 (Good) - GH Mental - Percentile 19 % - Self-Eff Symptom - Score - 45 (Average) Self-Eff Symptom - Percentile - 31 % T-scores: mean of general population = 50. 5 points is clinically meaningfully difference Percentiles provide an indication of how the patient's score ranks in relation to the general population. Higher percentile rankings indicate better function/quality of life. 50th percentile is the average of the general population and indicates half of respondents had a worse score. T-scores: mean of general population = 50. 5 points is clinically meaningfully difference Percentiles provide an indication of how the patient's score ranks in relation to the general population. Higher percentile rankings indicate better function/quality of life. 50th percentile is the average of the general population and indicates half of respondents had a worse score. OBJECTIVE MEASURES WITH LEVEL OF FUNCTION: Sensation - Upper Extremity UE Light Touch Sensation: Impaired (complaint of numbness whole thumb and dorsum of finger to PIP and up the forearm dosal surface to just above the elbow) Hand Wrist AROM: Left Limitation Left Hand AROM: All Digits Thumb AROM: Left Limitation Strength: Shoulder;Elbow;Wrist;Architectural Modeler Position 2;Pinch Meter Sensation: Reports tingling or numbness Dexterity/Coordination: Fine Motor;Gross Motor Hand Strength R Architectural Modeler Position 2 (lbs): 51 lbs L Architectural Modeler Position 2 (lbs): 41 lbs R Lateral Pinch (lbs): 16 lbs L Lateral Pinch (lbs): 8 lbs UE AROM R Wrist Extension: 0 Degrees (GE) R Wrist Radial Deviation: 0 Degrees Left Hand AROM: All Digits Thumb AROM: Left Limitation Hand AROM L Index Finger MP Extension: -62 Degrees L Middle Finger MP Extension : -75 Degrees L Middle Finger PIP Extension: -52 Degrees L Ring Finger MP Extension : -70 Degrees L Ring Finger PIP Extension : -60 Degrees L Little Finger MP Extension : -55 Degrees L Little Finger PIP Extension : -45 Degrees L Thumb MP Extension : -10 Degrees UE and Cervical Strength R UE Strength: grossly 4+/5 L UE Strength: proximal shoulder, elbow, forearm grossly 4+/5 L Forearm Supination: 4+/5 L Forearm Pronation: 4+/5 L Wrist Extension: 1/5 L Wrist Flexion: 4+/5 Current Activities Of Daily Living Current Activities Of Daily Living: Dressing Upper Body Dressing Upper Body: Minimal Assistance (buttons) Instrumental Activities of Daily Living Difficulty noted with: Cooking;Cleaning;Laundry Cooking: Modified Independent Cleaning: Modified Independent Laundry: Modified Independent Education: Education Learning Preferences: Demonstration;Explanation;Printe d Materials Barriers: None Learning/educational needs: Safety;Home exercise program;Plan of Care;Body Mechanics Education Provided: Yes, see treatment interventions for education provided Education Provided To: Patient Education Mode/Type: Demonstration;Explanation/Discus liza;Literature/Printed Materials Response to Education/Teach Back: States/Identifies;Return Demonstration TREATMENT: OT Treatment Interventions : Neuromuscular Re-Education Evaluation Neuromuscular Re-Education: 1: radial nerve glide exercises 2 types x 3 reps each Skilled Intervention: Correct performance of home program was facilitated with verbal and visual cueing. Billing * Evaluation Low Complexity: 1 Unit Neuromuscular Re-Education Treatment Minutes: 10 Total Treatment Time Minutes (timed/untimed): 45 KRYSTA Malloy documented in this encounter [facility] 2022 Instructions David Ramon MD - 2022 2:18 PM EDT Please stop prednisone Please continue to use your left hand and arm We will schedule for EMG/NCS (muscle and nerve testing) in 2 weeks Referral to occupational therapy documented in this encounter [facility] 2022 History of Presen t illness Narrative [facility] New Patient Visit Note Consultation requested by Pallavi Landeros PA-C. for an opinion regarding left arm weakness and numbness. My final recommendations will be communicated back to the requesting physician by way of shared Medical record or letter to requesting physician via US mail. History of Present Illness: Ms. Whiteside is a pleasant 21 year old right-handed female with a history of TBI in 2018 presenting for evaluation of left arm weakness and numbness. On 06/02, she woke up with left arm weakness and numbness after she took a nap for ~30 mins. No alcohol intake prior to this. She was napping on a soft bed leaned against the wall, and was lying on her left side when she woke up. Given no improvement in her symptoms the next morning, [facility] She was given a wrist splint and prescribed prednisone 40 mg BID. She has not had any improvement in her symptoms since the onset. She is unable to squeeze or grab with her left hand. She can lift her left arm. No symptoms on the right arm or either leg. She feels numb over the first three fingers and the back of her left arm, up to her elbow. She has some soreness over her left upper arm. She notices that her balance is somewhat off since her left arm numbness and weakness started. She tripped and fell the next day because of more imbalance. She keeps her left arm cradled and this affects her balance a bit. Otherwise no gait difficulty. No vision changes, speech or swallowing difficulty, dizziness. No precedent trauma to her arm, no rash. No recent infections. No recent weight loss. No sick contacts or recent trips. She has dry mouth and dry eyes for the last 6-12 months. She has early satiety. Otherwise no heat/cold intolerance, bloating, abnormal sweating. No joint problems. She thinks her feet are high-arched. No other family members with similar feet appearance or frequent falls. Her mother and father have carpal tunnel syndrome, otherwise no history of autoimmune or neurologic disorders in her family. PAST MEDICAL HISTORY Diagnosis Date 2010 PAST SURGICAL HISTORY Procedure Laterality Date NONE Medications: Current Outpatient Medications Medication Sig fluticasone (FLONASE) 50 mcg/actuation nasal spray Use 2 Sprays in each nostril once daily. Rinse mouth after use. FLUoxetine (PROZAC) 20 mg capsule Take 1 capsule by mouth once daily. (Patient not taking: Reported on 06/13/2021 ) L. dpcghonxy-E-pesf cit-yeast ([employer] IMMUNE DEFENSE) 2.5 billion cell-20 mg-3 mg cap Take 1 capsule by mouth once daily. (Patient not taking: Reported on 06/13/2021 ) No current facility-administered medications for this visit. Allergies: See updated allergies documented below. ALLERGIES No Known Allergies Social History Tobacco Use Smoking status: Never Smokeless tobacco: Never Substance Use Topics Alcohol use: No Drug use: No FAMILY HISTORY Problem Relation Age of Onset Heart Maternal Grandfather 59 [address] The patient is of ancestry. No history of neuromuscular disease. ROS: CONSTITUTIONAL: No reported fevers, chills, night sweats, or significant unintentional weight loss. EYES: No visual changes indicated. No eye pain or orbital swelling reported. HEENT: No hearing changes or vertiginous symptoms indicated. No history of nose bleeds reported. RESPIRATORY: No reported cough, sputum, wheezing and dyspnea. CARDIOVASCULAR: Negative for significant chest pain, and palpitations per report. GI: Negative for significant abdominal discomfort, blood in stools or black stools reported. No recent reported change in bowel habits. : No reported history of incontinence. No dark/cola colored urine reported. MUSCLOSKELETAL: No history of significant joint pain or swelling, or myalgias reported. SKIN: Negative for pertinent lesions, rash, and itching per report. HEMATOLOGY/ONCOLOGY: Negative for reported prolonged bleeding, bruising easily, and swollen nodes. ENDOCRINE: Negative for reported significant cold or heat intolerance, no reported goitrous neck swelling or polydipsia PSYCH: No reported depression or anxiety symptoms. No reported SI or HI. NEURO: Per HPI above. No reported sleep disturbance. Vital Signs: BP 108/56 Pulse 64 Ht 162.6 cm (5' 4) Wt 49.9 kg (110 lb) LMP 03/29/2019 BMI 18.88 kg/m General Medical Exam: General: Clinically well-appearing, comfortable. Eyes/ENT: see cranial nerve examination. Neck: Adequate range of motion Respiratory: Clear to auscultation, good air entry bilaterally. Cardiac/vascular: Regular rate and rhythm Extremities: No pertinent deformities, no significant edema, or skin discoloration. Skin: Skin color, texture, turgor normal. No pertinent rashes or lesions. Neurologic Exam: Mental status including: orientation to time, place, person, recent and remote memory, attention span and concentration, language, and fund of knowledge is essentially normal. CRANIAL NERVES: II: No visual field defects. III-IV-: Pupils equal round and reactive to light. Normal conjugate, extra-ocular eye movements in all directions of gaze. No nystagmus. No ptosis prior to or post sustained upgaze. V: Normal facial sensation. VII: Normal facial symmetry and movements. VIII: Normal hearing and vestibular function. IX-X: Normal palatal movement. XI: Normal shoulder shrug and head rotation. XII: Normal tongue strength and range of motion, no deviation or fasciculation. Speech is not dysarthric. MOTOR: No appreciable atrophy, fasciculations or abnormal movements. No pronator drift. No scapular winging. Tone is within normal limits, including absence of myotonia. Strength/Power (MRC grade- out of 5): Upper extremity power, when graded out of 5, revealed: Right Left shoulder abduction 5 5 shoulder adduction 5 5 elbow extension 5 5 elbow flexion 5 5 wrist extension 5 2 wrist flexion 5 4+ finger extension 5 2 deep finger flexion (D2-3) 5 5 deep finger flexion (D4-5) 5 5 thumb flexion with FPL 5 5 finger abduction 5 5 thumb abduction (APB) 5 5- thumb extension 5 2 Lack of brachioradialis pop up on the left with elbow flexion at neutral position. Lower extremity strength, when reported the same way, showed: Right Left hip flexion 5 5 hip extension 5 5 hip adduction 5 5 hip abduction 5 5 knee flexion 5 5 knee extension 5 5 ankle dorsiflexion 5 5 ankle plantar flexion 5 5 foot inversion 5 5 foot eversion 5 5 toe extension 5 5 toe flexion 5 5 No difficulty squatting and getting up from squatting- Does not use arms Able to rise from a chair without using arms. Deep Tendon Reflexes (DTRs): Right Left Biceps 2+ 2+ Triceps 2+ 2+ Brachioradialis 2+ 1+ Patellar 2+ 2+ Achilles 2+ 2+ Berry's sign: No Tromner's sign: No Plantar responses: flexor Clonus: No SENSORY: Decreased sensation to light touch and pinprick over the dorsal aspect of first 3 fingers, dorsum of hand and posterior forearm (all in radial nerve territory). Normal perception of temperature, vibration, and proprioception. Romberg's sign absent. No extinction on double simultaneous stimulation. COORDINATION/GAIT: Normal finger-to- nose-finger and [id number]-[id number] bilaterally. Intact rapid alternating movements bilaterally. Gait narrow-based and stable. Tandem and stressed gait intact. OUTSIDE RECORDS: The patient provided outside medical records, which were reviewed during the course of the visit. The relevant details are summarized below: NA INTERNAL RECORDS: The patient's electronic medical record was reviewed. The relevant details include: NA IMPRESSION: Ms. Whiteside is a pleasant 21 year old right-handed female with a history of TBI in 2018 presenting for evaluation of left arm weakness and numbness. She woke up with inability to extend her left fingers and left wrist, as well as numbness over the back of her left hand and left arm after sleeping on her left side. No change in her symptoms since the onset. No other symptoms in the other extremities or associated vision changes, ocular or bulbar symptoms. No recent trauma to the left arm, no weight loss. 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 A central process such as infarct or demyelination is unlikely given the distribution of exam findings and lack of risk factors. We will obtain an EMG/NCS after 3 weeks of symptoms onset to characterize the extent of injury. She was advised to stop using splint and discontinue prednisone. She was referred to OT. She is instructed to do exercise to improve hand strength. PLAN/RECOMMENDATIONS: - Will pursue the following studies: 1. EMG/NCS (radial neuropathy protocol, left side) 2. Discontinue prednisone 3. Stop using splint. Instead, patient advised on returning to normal use of her left hand and arm 4. Referral to occupational therapy placed - The impression above as well as the plan as outlined below were extensively discussed with the patient who voiced understanding. All questions were answered to her stated satisfaction. - When available, results of the above investigations and possible further recommendations will be communicated to the patient via telephone/Club [id number]. Patient to call office if not contacted after expected testing turnaround time. To aid with communication, patients (and primary care physicians) can sign up for [employer] (or [employer]), which allows online appointment scheduling, transmission of labs results and chart notes, and secure email communication. To establish either account, visit [email or web address]. David Ramon MD PGY-3 Adult Neurology resident Supervised by Dr. Joycelyn Rao, Neuromuscular Staff Attending note: I have seen, interviewed and examined Ms. Ana Whiteside with Dr. Ramon and I personally participated in the hewitt components. I have discussed the case and management of the patient's care. I agreed with outlined findings, assessment and plan of care. Joycelyn Rao MD, PhD [facility] [place] [address] Referring provider: Pallavi Landeros [address] [place] [address] Primary care provider: Leigh Ann Ventura [address] [place] [address] documented in this encounter [facility] Evaluation note Diagnosis Neuropathy of left radial nerve [facility]* Diagnosis Radial neuropathy, left- Primary Neuropathy of left radial nerve [facility] Diagnosis Neuropathy of left radial nerve- Primary [facility]* Diagnosis Neuropathy of left radial nerve- Primary [facility]* Diagnosis Neuropathy of left radial nerve- Primary [facility]* Diagnosis Burning with urination- Primary Dysuria Viral illness Unspecified viral infection, in conditions classified elsewhere and of unspecified site documented [facility] noteNo assessment information availableWWhite Hospital Work Phone: Evaluation note* Diagnosis Viral bronchitis- Primary Acute bronchitis [facility]* Diagnosis Sore throat- Primary Acute pharyngitis Tonsillitis Acute tonsillitis Infectious mononucleosis-like syndrome Infectious mononucleosis [facility] Additional Instructions Use the Silvadene cream to prevent infection and then cover the. area also with the lidocaine and aloe vera to help reduce pain if there is persistent pain take the [place]. Follow-up with Workmen's Comp. for repeat evaluation and return to ER should you have any further concernsWWhite Hospital Work Phone: Reason for referral (narrative)* Outpatient Procedure (Routine) - Pending Review Specialty Diagnoses / Procedures Referred By Kermit hagen Referred To Contact [facility] Diagnoses Neuropathy of left radial nerve Procedures EMG(NEURO/NI) NERVE CONDUCTION STUDIES 9-10 STUDIES Joycelyn Rao MD [address] [place] [address] [place] [address] Referral ID Status Reason Start Date Expiration Date Visits Requested Visits Authorized [id number] Pending Review Auto-Generat ed Referral 06/28/2022 06/28/2023 1 1 T [facility] Reason for Referral Specialty Diagnoses / Procedures Referred By Kermit ahgen Referred To Contact [facility] Diagnoses Neuropathy of left radial nerve Procedures CONSULT TO CASE [facility] EVAL HIGH COMPLEX 60 MINS Joycelyn Rao MD [address] [id number] [facility] [place] [address] Referral ID Status Reason Start Date Expiration Date Visits Requested Visits Authorized [id number] Pending Review Auto-Generat ed Referral 2023 1 1 Specialty Diagnoses / Procedures Referred By Kermit hagen Referred To [facility] Diagnoses Neuropathy of left radial nerve Procedures EMG(NEURO/NI) NERVE CONDUCTION STUDIES 9-10 STUDIES Joycelyn Rao MD [address] [place] [address] [address] [place] [address] Referral ID Status Reason Start Date Expiration Date Visits Requested Visits Authorized [id number] Pending Review Auto-Generat ed Referral 2 2023 1 1 Summary Purpose Family History No Family History Records Found Relationship Condition Age at Onset Recorded Date/T jaden Unknown Family History?No pertinent history Unkno wn March 04, 2020 11:11am Advance Directives No Advanced Directives Records Found Advance Directive Response Recorded Date/ Time Living Will No December 27, 2022 3: 09am Power of Medical Language Specialist No December 27, 2022 3:09am Health Concerns Infection Onset Date Last Indicated Resolved Time COVID-19 Rule-Out 09/10/2022 09/10/2022 09/11/2022 6:59 AM EST Chief Complaint and Reason for Visit Chief Complaint oil burn Additional Source Comments Source Comments (unrecognize d section and content) In the event this informatio n is protected by the Federal Confidentiality of Alcohol and Drug Abuse Patient Records regulations: The Federal rules restrict any use of the information to criminally investigate or prosecute any alcohol or drug abuse patient.[facility] the event this information is protected by the Federal Confidentiality of Alcohol and Drug Abuse Patient Records regulations: The Federal rules restrict any use of the information to criminally investigate or prosecute any alcohol or drug abuse patient.[facility] the event this information is protected by the Federal Confidentiality of Alcohol and Drug Abuse Patient Records regulations: The Federal rules restrict any use of the information to criminally investigate or prosecute any alcohol or drug abuse patient.[facility] HospitalIn the event this information is protected by the Federal Confidentiality of Alcohol and Drug Abuse Patient Records regulations: The Federal rules restrict any use of the information to criminally investigate or prosecute any alcohol or drug abuse patient.[facility] Hospital[facility] the event this information is protected by the Federal Confidentiality of Alcohol and Drug Abuse Patient Records regulations: The Federal rules restrict any use of the information to criminally investigate or prosecute any alcohol or drug abuse patient.[facility] HospitalIn the event this information is protected by the Federal Confidentiality of Alcohol and Drug Abuse Patient Records regulations: The Federal rules restrict any use of the information to criminally investigate or prosecute any alcohol or drug abuse patient.[facility] HospitalIn the event this information is protected by the Federal Confidentiality of Alcohol and Drug Abuse Patient Records regulations: The Federal rules restrict any use of the information to criminally investigate or prosecute any alcohol or drug abuse patient.[facility] HospitalIn the event this information is protected by the Federal Confidentiality of Alcohol and Drug Abuse Patient Records regulations: The Federal rules restrict any use of the information to criminally investigate or prosecute any alcohol or drug abuse patient.[facility] HospitalIn the event this information is protected by the Federal Confidentiality of Alcohol and Drug Abuse Patient Records regulations: The Federal rules restrict any use of the information to criminally investigate or prosecute any alcohol or drug abuse patient.[facility] Hospital[facility] the event this information is protected by the Federal Confidentiality of Alcohol and Drug Abuse Patient Records regulations: The Federal rules restrict any use of the information to criminally investigate or prosecute any alcohol or drug abuse patient.[facility] Reason for Visit (unrecogniz ed section and content) Reason Comments Occupational Therapy Specialty Diagnoses / Procedures Referred By Contac t Referred To Contact [facility] Diagnoses Neuropathy of left radial nerve Procedures CONSULT TO [facility] EVAL HIGH COMPLEX 60 MINS Joycelyn Rao MD [address] [place] [address] [facility] [place] [address] [place] [address] Referral ID Status Reason Start Date Expiration Date Visits Requested Visits Authorized [id number] Authorized Auto-Generate d Referral Patient Cleared - Qualified 100% FAS 09/05/2022 99 99 Reason Comments OT Progress Note Reason Comments New Patient Specialty Diagnoses / Procedures Referred By Enaac t Referred To Contact Neurology Diagnoses Neuropathy of left radial nerve Procedures CONSULT TO NEUROLOGY OFFICE/OUTPATIENT NEW HIGH MDM 60-74 MINUTES Pallavi Landeros PA-C [address] [place] [address] Referral ID Status Reason Start Date Expiration Date Visits Requested Visits Authorized [id number] Pending Review PCP Requested Referral 06/05/2023 1 1 Reason Comments OT EVAL Reason Comments Results Reason Comments Dysuria burning and pain wit h urination, bodyaches and headache x 4 days Reason Comments Cough Chest congestion, wh eezing, body aches x 5 days Reason Comments Sore Throat SOB, throat swelling , wheeze, x 2 weeks Specialty Diagnoses / Procedures Referred By Enaac t Referred To Contact [facility] Diagnoses sore throat, issues breatihng, stopped breathing at night x 2 weeks Procedures EST SAME DAY [facility] [address] [address] [place] [address] Referral ID Status Reason Start Date Expiration Date Visits Requested Visits Authorized [id number] Authorized Patient Cleared - Qualified 100% FAS 03/26/2024 06/24/2024 99 99 Care Teams (unrecognized sec tion and content) Size Painter Relationship Specialty Start Date End Date Leigh Ann Ventura MD [address] [place], [place] [id number] PCP - General 06/18/02 Size Painter Relationship Specialty Start Date End Date Leigh Ann Ventura MD [address] [facility] [place] [address] PCP - General 06/18/02 Size Painter Relationship Specialty Start Date End Date Leigh Ann Ventura MD [address] [facility] [place] [address] PCP - General 06/18/02 Size Painter Relationship Specialty Start Date End Date Leigh Ann Ventura MD [address] [facility] [place] [address] PCP - General 06/18/02 Size Painter Relationship Specialty Start Date End Date Leigh Ann Ventura MD [address] [facility] [place] [address] PCP - General 06/18/02 Size Painter Relationship Specialty Start Date End Date Leigh Ann Ventura MD [address] [facility] [place] [address] PCP - General 06/18/02 Size Painter Relationship Specialty Start Date End Date Leigh Ann Ventura MD [address] [facility] [place] [address] PCP - General 06/18/02 Team Status: Active Member Role Status Dates Dr. Leigh Ann Ventura MD Family Provider Active Dr. Leigh Ann Ventura MD Primary Care Provider Active Team Status: Inactive Member Role Status Dates Dr. Leigh Ann Ventura MD Primary Care Provider Active Dr. Jaylan Bernabe DO Emergency Provider Active Size Painter Relationship Specialty Start Date End Date Leigh Ann Ventura MD [address] [facility] [place] [address] PCP - General 06/18/02 Size Painter Relationship Specialty Start Date End Date Leigh Ann Ventura MD [address] [facility] [place] [address] PCP - General 06/18/02 INFORMATION SOURCE (unrecogn ized section and content) DATE CREATED AUTHOR 08/14/2022 [facility] DATE CREATED AUTHOR AUTHOR'S ORGANIZ ATION 03/29/2024 [facility] DATE CREATED AUTHOR AUTHOR'S ORGANIZ ATION 05/17/2024 [facility] Goals (unrecognized section and content) Goals may be documented in a n alternate section FOR RECORDS PERTAINING TO PATIENTS WHO ARE OR HAVE BEEN ENROLLED IN A CHEMICAL DEPENDENCY/SUBSTANCEABUSE PROGRAM, SOME INFORMATION MAY BE OMITTED. This clinical summary was aggregated from multiple sources. Caution should be exercised in using it in the provision of clinical care. This summary normalizes information from multiple sources, and as a consequence, information in this document may materially change the coding, format and clinical context of patient data. In addition, data may be omitted in some cases. CLINICAL DECISIONS SHOULD BE BASED ON THE PRIMARY CLINICAL RECORDS. [facility] [place] [facility]. provides no warranty or guarantee of the accuracy or completeness of information in this document.
--- NOTE | 2025-03-23 00:39 | ED.RN ---
1239: PT. FOUND LYING PRONE IN THE BED, WITH KNEES-FEET HANGING OFF THE BOTTOM OF THE BED. PT. ASKED IF THEY NEEDED ASSISTANCE MOVING UP INTO THE BED. PT. DENIED AND REQUESTED TO GO HOME STATING MY MOM IS ON HER WAY. PROVIDER NOTIFIED. PT. LEFT IN ROOM SITTING ON END OF BED, TYPING ON PHONE. 1241: PT. OFFERED AMA FORM OR TO STAY FOR OBSERVATION FOR ANOTHER HOUR. PT. REQUESTED AMA FORMS.
--- NOTE | 2025-03-23 01:05 | ED.RN ---
1244: AMA PAPERS PLACED IN PT. ROOM PROVIDER NOTIFIED. MOTHER OF PT. AT BEDSIDE. 0102: PT. FOUND, WRAPPED IN A HOSPITAL BLANKET, WALKING TOWARDS EXIT, FOLLOWING HER MOTHER. PT. AND MOTHER INSTRUCTED ON NEED FOR PROVIDER TO GO THROUGH AMA FORMS. MOTHER STATED WE ARE LEAVING. BLANKET LEFT ON TRIAGE NURSES STATION COUNTER.
== END 2025-03-23 01:02 | disposition left against medical advice (07) ==
LOC: ED 03-23 00:29
PROVIDERS: Emergency Provider Emergency Medicine; Visit Provider Emergency Medicine
DX: T40.411A Poisoning by fentanyl or fentanyl analogs, accidental (unintentional), initial encounter (principal); F11.288 Opioid dependence with other opioid-induced disorder; F17.210 Nicotine dependence, cigarettes, uncomplicated; F17.290 Nicotine dependence, other tobacco product, uncomplicated; Z90.49 Acquired absence of other specified parts of digestive tract
CPT/HCPCS: 99282